=== PATIENT | female | born 1990 | race Caucasian/White ===

== ENCOUNTER → 2017-02-24 | Outpatient (CLI) | payer OTHER ==
[2017-02-24 13:15] LABS: CH 30.6; CHCM 35.3; HCT 39.4 % (34.0-46.0); HDW 2.62; HGB 14.4 gm/dL (11.4-16.0); MCH 31.9 pg (25.0-35.0); MCHC 36.6 g/dL (31.0-37.0); Mean Platelet Volume 7.5; RBC 4.53 m/uL (3.80-5.40); WBC 8.6 k/uL (3.8-10.6)
--- NOTE | 2017-02-24 15:27 | US ---
EXAMINATION TYPE: US OB <= 14 wk fetus DATE OF EXAM: 02/24/2017 COMPARISON: NONE CLINICAL HISTORY: [id number] Confirm Dates. Confirm Dates EXAM PERFORMED: Transabdominal (TA) EXAM MEASUREMENTS: GESTATIONAL AGE / DATING Physician Established: Not yet established Dates by LMP: (13 weeks/0 days) EDC: 09/01/2017 Dates by First Scan: No prior Dates by Current Scan for: (11 weeks/3 days) EDC: 09/12/2017 MATERNAL ANATOMY Uterus: 16.6 x 6.7 x 11.6 cm Right Ovary: 2.8 x 1.5 x 3.1 cm Left Ovary: 4.5 x 2.8 x 4.6 cm Post CDS / Adnexa: wnl Presence of free fluid: No Presence of corpus luteal cyst: Left Ovary= 3.3 x 2.3 x 3.3 cm Presence of subchorionic bleed: Lower Uterine Segment= 2.0 x 1.3 x 1.8 cm GESTATION / SURVEY CRL: 4.6 cm (11 weeks/3 days) MSD: wnl Heart Rate: 172 bpm Rhythm: Normal IUP: Viable IUP Nuchal Translucency 10-14wks (normal less than 3mm): 2 mm Date of LMP: 11/25/2016 Single, viable IUP/ Small sub-chorionic bleed, otherwise no other abnormality visualized at time Urinary bladder is sonolucent. IMPRESSION: 1. Single intrauterine gestation estimated at 11 weeks 3 days gestation based on crown-rump length. C ardiac activity measures 172 bpm. 2. Subchorionic hemorrhage.
[2017-02-24 19:13] LABS: Treponemal Ab Non-Reactive (Non-Reactive)
[2017-02-24 19:45] LABS: Glucose 86 mg/dL (74-99); Non-African American GFR(MDRD) >60 (>60 ml/min/1.73 sqM)
[2017-02-24 20:19] LABS: Hepatitis B Surface Ag Index 0.06
== END | disposition home or self-care (01) ==
LOC: RADUSWWP 12:17
PROVIDERS: ATTEND Obstetrics & Gynecology
DX: O46.91 Antepartum hemorrhage, unspecified, first trimester (principal); O26.811 Pregnancy related exhaustion and fatigue, first trimester; Z36 Encounter for antenatal screening of mother; Z3A.11 11 weeks gestation of pregnancy
CPT/HCPCS: 36415; 76801; 76813; 82565; 82947; 84443; 85027; 86762; 86780; 86850; 86900; 86901; 87340; 87390

== ENCOUNTER 2017-05-08 11:14 | Emergency (ER) | payer OTHER ==
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
[2017-05-08 12:49] VITALS: BP 109/68; PULSE 90; RESP 15; TEMP 97.8
== END 2017-05-08 13:09 | disposition home or self-care (01) ==
LOC: EC 11:14
DX: O9A.212 Injury, poisoning and certain other consequences of external causes complicating pregnancy, second trimester (principal); S00.83XA Contusion of other part of head, initial encounter; O99.342 Other mental disorders complicating pregnancy, second trimester; F32.9 Major depressive disorder, single episode, unspecified; F41.9 Anxiety disorder, unspecified; O99.332 Smoking (tobacco) complicating pregnancy, second trimester; F17.200 Nicotine dependence, unspecified, uncomplicated; Z79.899 Other long term (current) drug therapy; Z3A.22 22 weeks gestation of pregnancy; Y92.009 Unspecified place in unspecified non-institutional (private) residence as the place of occurrence of the external cause; Y04.0XXA Assault by unarmed brawl or fight, initial encounter
CPT/HCPCS: 99284

== ENCOUNTER → 2017-05-08 | Outpatient (CLI) | payer OTHER ==
[2017-05-08 11:30] VITALS: BP 118/64; PULSE 94; RESP 16; TEMP 97.3
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
== END | disposition home or self-care (01) ==
LOC: FBPOP 10:08
PROVIDERS: ATTEND Obstetrics & Gynecology
DX: O9A.22 Injury, poisoning and certain other consequences of external causes complicating childbirth (principal); S00.81XA Abrasion of other part of head, initial encounter; S00.31XA Abrasion of nose, initial encounter; S40.021A Contusion of right upper arm, initial encounter; S40.022A Contusion of left upper arm, initial encounter; S80.11XA Contusion of right lower leg, initial encounter; S80.12XA Contusion of left lower leg, initial encounter; Z3A.22 22 weeks gestation of pregnancy
CPT/HCPCS: 99213

== ENCOUNTER 2017-07-19 06:21 | Emergency (ER) | payer OTHER ==
[2017-07-19] MEDS ORDERED: SODIUM CHLORIDE 0.9% 500 ML IV STA (07:18)
[2017-07-19] MEDS ORDERED: DEXAMETHASONE SOD PHOSPHATE 10 MG/ML 1 ML VIAL IV STA (07:18)
[2017-07-19] MEDS ORDERED: IPRATROPIUM-ALBUTEROL 3 ML NEB INHALATION STA (07:18)
[2017-07-19] MEDS ORDERED: diphenhydrAMINE 50 MG/ML 1 ML VIAL IVP STA (07:19)
[2017-07-19] MEDS ORDERED: METOCLOPRAMIDE 5 MG/ML 2 ML VIAL IVP STA (07:19)
[2017-07-19] MEDS ORDERED: ACETAMINOPHEN TAB 500 MG TAB PO STA (07:21)
--- NOTE | 2017-07-19 07:25 | ED ---
General Adult HPI - General Chief complaint: Upper Respiratory Infection Stated complaint: migraine Time Seen by Provider: 07/19/17 07:02 Source: patient, RN notes reviewed Mode of arrival: ambulatory Limitations: no limitations - History of Present Illness Initial comments: 26-year-old female presents with a one-week history of cough, runny nose and nasal congestion and mild sore throat. Patient is currently 30 weeks . She has a past medical history of asthma. She states that over the past 3 days she has developed additional headache associated with her symptoms. Headache is right-sided. Typical of her usual migraine headaches. Patient states her cough is productive of sputum. Denies vomiting, has had some mild nausea associated with headache. Mild photophobia. Patient denies abdominal pain or vaginal bleeding. - Related Data Home Medications Medication Instructions Recorded Confirmed Acetaminophen Tab [Tylenol Tab] 1,000 mg PO BID PRN 05/08/17 07/19/17 Albuterol Inhaler [Ventolin Hfa 2 - 4 puff INHALATION RT-Q6H PRN 05/08/17 Inhaler] Previous Rx's Medication Instructions Recorded Cephalexin [Keflex] 500 mg PO Q8HR #21 cap 07/19/17 Allergies Allergy/AdvReac Type Severity Reaction Status Date / Time No Known Allergies Allergy Verified 07/19/17 07:18 Review of Systems ROS Statement: Those systems with pertinent positive or pertinent negative responses have been documented in the HPI. ROS Other: All systems not noted in ROS Statement are negative. Past Medical History Past Medical History: Asthma Additional Past Medical History / Comment(s): pancreatitis. pyloric stenosis, migraines History of Any Multi-Drug Resistant Organisms: MRSA Date of last positivie culture/infection: 2011 MDRO Source:: lt upper thigh area Past Surgical History: Cholecystectomy, Orthopedic Surgery Additional Past Surgical History / Comment(s): lt finger tendon repair Past Anesthesia/Blood Transfusion Reactions: No Reported Reaction Past Psychological History: Anxiety, Depression Smoking Status: Current every day smoker Past Alcohol Use History: None Reported Past Drug Use History: Marijuana - Past Family History Mother Family Medical History: No Reported History General Exam Limitations: no limitations General appearance: alert, in no apparent distress Head exam: Present: atraumatic, normocephalic Eye exam: Present: normal appearance, PERRL ENT exam: Present: mucous membranes dry, other (Nasal congestion, mild pharyngeal erythema) Neck exam: Present: normal inspection. Absent: tenderness, meningismus Respiratory exam: Present: wheezes. Absent: respiratory distress Cardiovascular Exam: Present: regular rate, normal rhythm GI/Abdominal exam: Present: soft. Absent: distended, tenderness Extremities exam: Present: normal inspection, normal capillary refill. Absent: pedal edema Neurological exam: Present: alert, oriented X3, CN II-XII intact. Absent: motor sensory deficit Psychiatric exam: Present: normal affect, normal mood Skin exam: Present: warm, dry, intact Course Vital Signs 07/19/17 07/19/17 07/19/17 06:30 07:38 07:57 Temperature 97.6 F Pulse Rate 94 92 Respiratory 20 Rate Blood Pressure 162/87 139/82 O2 Sat by Pulse 98 Oximetry 07/19/17 08:07 Temperature Pulse Rate 96 Respiratory Rate Blood Pressure O2 Sat by Pulse Oximetry Medical Decision Making - Medical Decision Making 26-year-old female presenting with cough, cold symptoms, and headache. Patient is currently 30 weeks . She does receive heart tones in the emergency department, these are in the 130s. She also has an STD performed while in the emergency department, this is reactive with no contractions. Laboratory studies reveal normal white blood cell count, 9.9, hemoglobin is stable 11.2, potassium is 3.4 which is low and replaced. AST and ALTs and platelets are all normal. Influenza swab is negative. Chest x-ray shows no focal pneumonia. Urinalysis does show 3 wbc's and rare bacteria, culture is obtained. Case is discussed with Dr. Conte, on-call [employer], NST results are conveyed the OB nurse. Patient's blood pressure is mildly elevated, she will have close follow-up with her [employer]. On reevaluation patient's headache is improved, no respiratory distress patient is feeling much better. - Lab Data Result diagrams: 07/19/17 07:46 07/19/17 07:46 Lab Results 07/19/17 07/19/17 07/19/17 Range/Units 07:46 07:46 07:46 WBC 9.9 (3.8-10.6) k/uL RBC 3.71 L (3.80-5.40) m/uL Hgb 11.2 L (11.4-16.0) gm/dL Hct 34.9 (34.0-46.0) % MCV 94.1 (80.0-100.0) fL MCH 30.1 (25.0-35.0) pg MCHC 32.0 (31.0-37.0) g/dL RDW 14.0 (11.5-15.5) % Plt Count 183 (150-450) k/uL Neutrophils % 77 % Lymphocytes % 15 % Monocytes % 5 % Eosinophils % 1 % Basophils % 0 % Neutrophils # 7.6 (1.3-7.7) k/uL Lymphocytes # 1.5 (1.0-4.8) k/uL Monocytes # 0.5 (0-1.0) k/uL Eosinophils # 0.1 (0-0.7) k/uL Basophils # 0.0 (0-0.2) k/uL Sodium 137 (137-145) mmol/L Potassium 3.4 L (3.5-5.1) mmol/L Chloride 110 H (98-107) mmol/L Carbon Dioxide 21 L (22-30) mmol/L Anion Gap 6 mmol/L BUN 6 L (7-17) mg/dL Creatinine 0.51 L (0.52-1.04) mg/dL Est GFR (MDRD) Af Amer >60 (>60 ml/min/1.73 sqM) Est GFR (MDRD) Non-Af >60 (>60 ml/min/1.73 sqM) Glucose 89 (74-99) mg/dL Calcium 8.7 (8.4-10.2) mg/dL Total Bilirubin 0.1 L (0.2-1.3) mg/dL AST 16 (14-36) U/L ALT 24 (9-52) U/L Alkaline Phosphatase 58 (38-126) U/L Total Protein 5.7 L (6.3-8.2) g/dL Albumin 3.0 L (3.5-5.0) g/dL Urine Color Urine Appearance (Clear) Urine pH (5.0-8.0) Ur Specific [place] (1.001-1.035) Urine Protein (Negative) Urine Glucose (UA) (Negative) Urine Ketones (Negative) Urine Blood (Negative) Urine Nitrite (Negative) Urine Bilirubin (Negative) Urine Urobilinogen (<2.0) mg/dL Ur Leukocyte Esterase (Negative) Urine RBC (0-5) /hpf Urine WBC (0-5) /hpf Ur Squamous Epith Cells (0-4) /hpf Urine Bacteria (None) /hpf Urine Mucus (None) /hpf Influenza Type A RNA Not Detected (Not Detectd) Influenza Type B (PCR) Not Detected (Not Detectd) 07/19/17 Range/Units 07:46 WBC (3.8-10.6) k/uL RBC (3.80-5.40) m/uL Hgb (11.4-16.0) gm/dL Hct (34.0-46.0) % MCV (80.0-100.0) fL MCH (25.0-35.0) pg MCHC (31.0-37.0) g/dL RDW (11.5-15.5) % Plt Count (150-450) k/uL Neutrophils % % Lymphocytes % % Monocytes % % Eosinophils % % Basophils % % Neutrophils # (1.3-7.7) k/uL Lymphocytes # (1.0-4.8) k/uL Monocytes # (0-1.0) k/uL Eosinophils # (0-0.7) k/uL Basophils # (0-0.2) k/uL Sodium (137-145) mmol/L Potassium (3.5-5.1) mmol/L Chloride (98-107) mmol/L Carbon Dioxide (22-30) mmol/L Anion Gap mmol/L BUN (7-17) mg/dL Creatinine (0.52-1.04) mg/dL Est GFR (MDRD) Af Amer (>60 ml/min/1.73 sqM) Est GFR (MDRD) Non-Af (>60 ml/min/1.73 sqM) Glucose (74-99) mg/dL Calcium (8.4-10.2) mg/dL Total Bilirubin (0.2-1.3) mg/dL AST (14-36) U/L ALT (9-52) U/L Alkaline Phosphatase (38-126) U/L Total Protein (6.3-8.2) g/dL Albumin (3.5-5.0) g/dL Urine Color Light Yellow Urine Appearance Cloudy H (Clear) Urine pH 6.5 (5.0-8.0) Ur Specific [place] 1.008 (1.001-1.035) Urine Protein Negative (Negative) Urine Glucose (UA) Negative (Negative) Urine Ketones Negative (Negative) Urine Blood Negative (Negative) Urine Nitrite Negative (Negative) Urine Bilirubin Negative (Negative) Urine Urobilinogen <2.0 (<2.0) mg/dL Ur Leukocyte Esterase Large H (Negative) Urine RBC 2 (0-5) /hpf Urine WBC 3 (0-5) /hpf Ur Squamous Epith Cells 7 H (0-4) /hpf Urine Bacteria Rare H (None) /hpf Urine Mucus Rare H (None) /hpf Influenza Type A RNA (Not Detectd) Influenza Type B (PCR) (Not Detectd) Disposition Clinical Impression: Upper respiratory infection, Asthma, UTI (urinary tract infection) during Disposition: HOME SELF-CARE Condition: Good Instructions: Upper Respiratory Infection (ED), Urinary Tract Infection in (ED) Prescriptions: Cephalexin [Keflex] 500 mg PO Q8HR #21 cap Referrals: Christo Herrera MD [Primary Care Provider] - 1-2 days Marcio Dumont DO [Doctor of Osteopathic Medicine] - 1-2 days Time of Disposition: 09:59
[2017-07-19 08:08] LABS: Basophils % (A) 0 %; CH 31.4; CHCM 33.6; Eosinophils # (A) 0.1 k/uL (0-0.7); Eosinophils % (A) 1 %; HCT 34.9 % (34.0-46.0); HDW 2.65; HGB 11.2 gm/dL (11.4-16.0); Luc # (Auto) 0.17; Luc % (Auto) 2; Lymphocytes # (A) 1.5 k/uL (1.0-4.8); Lymphocytes % (A) 15 %; MCH 30.1 pg (25.0-35.0); MCV 94.1 fL (80.0-100.0); Mean Platelet Volume 8.4; Monocytes # (A) 0.5 k/uL (0-1.0); Monocytes % (A) 5 %; Neutrophils # (A) 7.6 k/uL (1.3-7.7); Neutrophils % (A) 77 %; RBC 3.71 m/uL (3.80-5.40); WBC 9.9 k/uL (3.8-10.6)
[2017-07-19 08:11] LABS: Appearance,Urine Cloudy (Clear); Bacteria,Urine Rare /hpf; Bilirubin,Urine Negative (Negative); Glucose,Urine (UA) Negative (Negative); Ketones,Urine Negative (Negative); Leukocyte Esterase,Urine Large (Negative); Mucus,Urine Rare /hpf; Nitrite,Urine Negative (Negative); PH, Urine 6.5 (5.0-8.0); Particle Count 3730; Protein,Urine Negative (Negative); RBC,Urine 2 /hpf (0-5); Specific Gravity,Urine 1.008 (1.001-1.035); Squamous Epithelial Cell,Urine 7 /hpf (0-4); UA Billing (MACRO vs. MICRO) MICRO; Urobilinogen,Urine <2.0 mg/dL (<2.0); WBC,Urine 3 /hpf (0-5)
[2017-07-19 08:30] LABS: ALT 24 U/L (9-52); AST 16 U/L (14-36); Alkaline Phosphatase 58 U/L (38-126); Anion Gap 6 mmol/L; Blood Urea Nitrogen 6 mg/dL (7-17); Calcium 8.7 mg/dL (8.4-10.2); Carbon Dioxide 21 mmol/L (22-30); Chloride 110 mmol/L (98-107); Glucose 89 mg/dL (74-99); Non-African American GFR(MDRD) >60 (>60 ml/min/1.73 sqM); Potassium 3.4 mmol/L (3.5-5.1); Sodium 137 mmol/L (137-145); Total Bilirubin 0.1 mg/dL (0.2-1.3); Total Protein 5.7 g/dL (6.3-8.2)
[2017-07-19] MEDS ORDERED: POTASSIUM CHLORIDE ER 20 MEQ TAB.ER PO STA (08:46)
--- NOTE | 2017-07-19 09:26 | XR ---
EXAMINATION TYPE: XR chest 2V DATE OF EXAM: 07/19/2017 COMPARISON: None HISTORY: 26-year-old female with cough TECHNIQUE: PA and lateral views FINDINGS: The cardiomediastinal silhouette, aorta, and pulmonary vasculature are within normal limits. Lungs an d pleural spaces are clear. IMPRESSION: No acute cardiopulmonary process.
[2017-07-19 10:32] VITALS: BP 115/73; PULSE 88; RESP 18; TEMP 98.5
== END 2017-07-19 10:32 | disposition home or self-care (01) ==
LOC: EC 06:21
DX: O99.513 Diseases of the respiratory system complicating pregnancy, third trimester (principal); J06.9 Acute upper respiratory infection, unspecified; J45.909 Unspecified asthma, uncomplicated; O23.43 Unspecified infection of urinary tract in pregnancy, third trimester; O99.333 Smoking (tobacco) complicating pregnancy, third trimester; F17.200 Nicotine dependence, unspecified, uncomplicated; Z3A.30 30 weeks gestation of pregnancy; Z86.14 Personal history of Methicillin resistant Staphylococcus aureus infection
CPT/HCPCS: 36415; 94640; 80053; 85025; 81001; 87086; 87502; 71020; 99284; 96374; 96375 ×2; 96361; J1200; J1100; J2765

== ENCOUNTER 2017-08-13 08:26 | Emergency (ER) | payer OTHER ==
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
[2017-08-13 09:04] LABS: Basophils % (A) 0 %; Eosinophils # (A) 0.1 k/uL (0-0.7); Eosinophils % (A) 1 %; HCT 33.8 % (34.0-46.0); HGB 11.4 gm/dL (11.4-16.0); Lymphocytes # (A) 1.2 k/uL (1.0-4.8); Lymphocytes % (A) 15 %; MCH 30.6 pg (25.0-35.0); MCHC 33.8 g/dL (31.0-37.0); MCV 90.6 fL (80.0-100.0); Mean Platelet Volume 7.5; Monocytes # (A) 0.4 k/uL (0-1.0); Monocytes % (A) 5 %; Neutrophils # (A) 6.2 k/uL (1.3-7.7); Neutrophils % (A) 76 %; Platelet Count 193 k/uL (150-450); RBC 3.73 m/uL (3.80-5.40); RDW 13.2 % (11.5-15.5); WBC 8.1 k/uL (3.8-10.6)
--- NOTE | 2017-08-13 09:11 | XR ---
EXAMINATION TYPE: XR chest 1V portable DATE OF EXAM: 08/13/2017 COMPARISON: 07/19/2017 HISTORY: Chest pain TECHNIQUE: Single frontal view of the chest is obtained. Lung volumes are diminished. FINDINGS: There is no focal air space opacity, pleural effusion, or pneumothorax seen. The cardiac silhouette size is within normal limits. The osseous structures are intact. IMPRESSION: 1. No acute process.
--- NOTE | 2017-08-13 09:12 | XR ---
EXAMINATION TYPE: XR pelvis AP view DATE OF EXAM: 08/13/2017 CLINICAL HISTORY: pain TECHNIQUE: Single view the pelvis is submitted. FINDINGS: No evidence for fracture, dislocation or bony lesion. Joint spaces are well-preserved. S I joints appear symmetric. Portions of the calvarium and thorax noted. IMPRESSION: 1. No acute fracture or dislocation seen. ICD 10 NO FRACTURE, INITIAL EVALUATION
[2017-08-13 09:15] LABS: ALT 29 U/L (9-52); AST 18 U/L (14-36); Albumin 3.1 g/dL (3.5-5.0); Alcohol <10 mg/dL; Alkaline Phosphatase 72 U/L (38-126); Amylase 49 U/L (30-110); Anion Gap 6 mmol/L; Blood Urea Nitrogen 7 mg/dL (7-17); Calcium 8.8 mg/dL (8.4-10.2); Carbon Dioxide 24 mmol/L (22-30); Chloride 107 mmol/L (98-107); Glucose 102 mg/dL (74-99); Lipase 93 U/L (23-300); Potassium 3.2 mmol/L (3.5-5.1); Sodium 137 mmol/L (137-145); Total Bilirubin 0.3 mg/dL (0.2-1.3); Total Protein 5.8 g/dL (6.3-8.2)
[2017-08-13 09:16] LABS: INR 0.9 (<1.2); Prothrombin Time 9.4 sec (9.0-12.0)
[2017-08-13 09:27] LABS: Partial Thromboplastin Time 19.9 sec (22.0-30.0)
[2017-08-13 09:30] LABS: Creatine Kinase 38 U/L (30-135)
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
[2017-08-13 09:42] LABS: Creatine Kinase MB 0.5 ng/mL (0.0-2.4); Troponin I <0.012 ng/mL (0.000-0.034)
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
[2017-08-13 10:49] LABS: Appearance,Urine Cloudy (Clear); Bacteria,Urine Rare /hpf; Bilirubin,Urine Negative (Negative); Blood,Urine Negative (Negative); Color,Urine Yellow; Glucose,Urine (UA) Negative (Negative); Ketones,Urine Negative (Negative); Leukocyte Esterase,Urine Large (Negative); Nitrite,Urine Negative (Negative); Protein,Urine Trace (Negative); RBC,Urine 5 /hpf (0-5); Specific Gravity,Urine 1.009 (1.001-1.035); Squamous Epithelial Cell,Urine 29 /hpf (0-4); Urobilinogen,Urine <2.0 mg/dL (<2.0); WBC,Urine 11 /hpf (0-5)
[2017-08-13 10:56] LABS: Urn Cannabinoid Scrn Detected (NotDetected)
[2017-08-13 10:57] LABS: Amphetamine Screen,Urine Not Detected (NotDetected); Barbiturate Screen,Urine Not Detected (NotDetected); Benzodiazepines Screen,Urine Not Detected (NotDetected); Cocaine Screen,Urine Not Detected (NotDetected); Methadone Screen, Urine Not Detected (NotDetected); Opiate Screen,Urine Not Detected (NotDetected); Oxycodone Screen, Urine Not Detected (NotDetected); Phencyclidine Screen,Urine Not Detected (NotDetected); Tricyclic Antidepressant,Urine Not Detected (NotDetected)
[2017-08-13] MEDS ORDERED: Acetaminophen-Codeine 300-30mg TAB PO PRN (12:16)
[2017-08-25 10:36] LABS: Glucose,Whole Blood 113 mg/dL (75-99)
== END 2017-08-13 23:55 | disposition home or self-care (01) ==
LOC: EC 08:26
DX: O9A.213 Injury, poisoning and certain other consequences of external causes complicating pregnancy, third trimester (principal); S70.02XA Contusion of left hip, initial encounter; O99.89 Other specified diseases and conditions complicating pregnancy, childbirth and the puerperium; M54.2 Cervicalgia; O99.333 Smoking (tobacco) complicating pregnancy, third trimester; F17.200 Nicotine dependence, unspecified, uncomplicated; Z79.899 Other long term (current) drug therapy; V49.59XA Passenger injured in collision with other motor vehicles in traffic accident, initial encounter; Y92.410 Unspecified street and highway as the place of occurrence of the external cause; Z3A.37 37 weeks gestation of pregnancy
CPT/HCPCS: 36415; 71010; 72125; 72170; 76700; 76805; 80053; 80306; 80320; 81001; 81025; 82150; 82550; 82553; 83605; 83690; 84484; 85025; 85610; 85730; 86850; 86900; 86901; 93005; 99285

== ENCOUNTER 2017-09-01 20:41 | Outpatient (CLI) | payer OTHER ==
[2017-09-01 21:47] VITALS: BP 129/82; PULSE 112; RESP 16; TEMP 97.1
--- NOTE | 2017-09-13 21:41 | P.MSEPDOC ---
Presenting Problems - Arrival Data Date of Arrival on Unit: 09/01/17 Time of Arrival on Unit: 20:41 Mode of Transport: Ambulatory - Complaint OB-Reason for Admission/Chief Complaint: Possible Onset of Labor, Vaginal Bleeding Comment: pt noted small clots while in the tub, thought she was leaking immediately after the bath, and still having small amt of bleeding. amnisure neg. pt denies thinking her water is broke. old brown blood noted on exam, cervix unchanged from office, bp WNL but HR elevated on admission, in 115s now Medical History - Information : 5 Para: 4 Term: 4 : 0 Abortions: Spontaneous or Elective: 0 Number of Living Children: 4 - Gestational Age Gestational Age by KAREN (wks/days): 38 Weeks and 3 Days - History Complications: Smoker, Hx. Substance Abuse Comment: occasional marijuana use depending on her stress level and how well she 's sleeping Review of Systems - Review of Systems Constitutional: No problems Breast: No problems ENT: No problems Cardiovascular: No problems Respiratory: No problems Gastrointestinal: No problems Genitourinary: No problems Musculoskeletal: No problems Neurological: No problems Skin: No problems Vital Signs - Temperature Temperature: 97.1 F Temperature Source: Temporal Artery Scan - Pulse Right Pulse Rate: 112 Pulse Assessment Method: Pulse Oximetry - Respirations Respiratory Rate: 16 O2 Sat by Pulse Oximetry: 95 - Blood Pressure Right Arm Blood Pressure: 129/82 Blood Pressure Mean: 97 Blood Pressure Source: Automatic Cuff Medical Screen Scoring (Pre) - Cervical Exam Dilation: 1-3 cm = 1 Membranes: Intact - Uterine Contractions Frequency: > 5 minutes apart = 1 Intensity: N/A - Maternal Vital Signs Maternal Temperature: N/A Maternal Blood Pressure: N/A Signs of Preeclampsia: N/A Maternal Respirations: N/A - Assessment Baseline FHR: 135 Heart Rate - NICHD Category: Category I (Normal) = 0 NST: Reactive Position: N/A - Total Score Total Score (Pre): 2 - Level of Risk Level of Risk: Low (0-5) Physician Notification (Pre) - Physician Notified Physician Notified Date: 09/01/17 Physician Notified Time: 21:17 Physician/Practitioner Notifed:: Dr Barney - Notification Comment Comment: pt states shes preeclamptic, reported on vitals. HR has decreased since being here. pt is smoker. reported on reactive fhts, 1 cntrx, vag exam unchanged since office, has appt scheduled wednesday. no active bleeding noted, no leaking noted. orders to d/c home with instructions Disposition - Disposition OB Disposition: Discharge to home Discharge Date: 09/01/17 Discharge Time: 21:25 I agree with the RN Medical Screening Exam: Yes Risk & Benefit of care provided described in d/c instruction: Yes Diagnosis: FALSE LABOR AT OR AFTER 37 COMPLETED WEEKS OF GESTATION
== END 2017-09-01 21:25 | disposition home or self-care (01) ==
LOC: FBPOP 20:41
PROVIDERS: ATTEND Obstetrics & Gynecology
DX: O47.1 False labor at or after 37 completed weeks of gestation (principal); Z3A.38 38 weeks gestation of pregnancy
CPT/HCPCS: 59025; 84112; G0463; 99213

== ENCOUNTER 2017-09-03 15:09 | Inpatient (IN) | payer OTHER ==
[2017-09-03] MEDS ORDERED: CARBOPROST TROMETHAMINE 250 MCG/ML 1 ML AMP IM PRN (15:22)
[2017-09-03] MEDS ORDERED: TERBUTALINE 1 MG/ML VIAL SQ PRN (15:22)
[2017-09-03] MEDS ORDERED: OXYTOCIN 10 UNIT/ML 1 ML VIAL IM PRN (15:22)
[2017-09-03] MEDS ORDERED: LIDOCAINE 1% (PF) 10 MG/ML (30 ML SDV) SQ PRN (15:22)
[2017-09-03] MEDS ORDERED: METHYLERGONOVINE 0.2 MG/ML 1 ML AMP IM PRN (15:22)
[2017-09-03 15:32] VITALS: BMI 29.1
[2017-09-03] MEDS: OXYTOCIN 20 UNITS/1000 ML NS 1,000 ML IV SCH (15:50)
[2017-09-03] MEDS: LACTATED RINGERS 1,000 ML IV SCH ×3 (15:50→21:25)
[2017-09-03 15:54] LABS: ALT 31 U/L (9-52); AST 16 U/L (14-36); Blood Urea Nitrogen 4 mg/dL (7-17); LDH 417 U/L (313-618); Uric Acid 3.4 mg/dL (3.7-7.4)
[2017-09-03 15:55] LABS: Amorphous Sediment,Urine Occasional /hpf; Appearance,Urine Clear (Clear); Bacteria,Urine Occasional /hpf; Bilirubin,Urine Negative (Negative); Blood,Urine Moderate (Negative); Color,Urine Light Yellow; Glucose,Urine (UA) Negative (Negative); Ketones,Urine Negative (Negative); Leukocyte Esterase,Urine Small (Negative); Nitrite,Urine Negative (Negative); PH, Urine 7.5 (5.0-8.0); Protein,Urine Negative (Negative); RBC,Urine 4 /hpf (0-5); Specific Gravity,Urine 1.002 (1.001-1.035); Squamous Epithelial Cell,Urine 4 /hpf (0-4); Urobilinogen,Urine <2.0 mg/dL (<2.0); WBC,Urine 4 /hpf (0-5)
[2017-09-03 15:57] LABS: INR 0.9 (<1.2); Partial Thromboplastin Time 24.4 sec (22.0-30.0); Prothrombin Time 9.4 sec (9.0-12.0)
[2017-09-03 16:03] LABS: Basophils % (A) 0 %; Eosinophils % (A) 0 %; HGB 12.1 gm/dL (11.4-16.0); Lymphocytes # (A) 1.2 k/uL (1.0-4.8); Lymphocytes % (A) 14 %; MCH 30.6 pg (25.0-35.0); MCHC 33.7 g/dL (31.0-37.0); MCV 90.9 fL (80.0-100.0); Mean Platelet Volume 7.9; Monocytes # (A) 0.3 k/uL (0-1.0); Monocytes % (A) 4 %; Neutrophils # (A) 6.8 k/uL (1.3-7.7); Neutrophils % (A) 79 %; Platelet Count 198 k/uL (150-450); RBC 3.96 m/uL (3.80-5.40); RDW 13.3 % (11.5-15.5); WBC 8.7 k/uL (3.8-10.6)
[2017-09-03] MEDS: ALBUTEROL NEBULIZED 2.5 MG/3 ML INHALATION PRN (16:54)
[2017-09-03] MEDS ORDERED: BUPIVACAINE (PF) 0.25% 30 ML VIAL ONE (20:49)
[2017-09-03] MEDS ORDERED: SODIUM CHLORIDE 0.9% 100 ML BAG ONE (20:49)
[2017-09-03] MEDS ORDERED: fentaNYL (PF) 50 MCG/ML 5 ML AMP ONE (20:49)
[2017-09-03] MEDS ORDERED: BUPIVACAINE (PF) 0.25% 25 ML, fentaNYL (PF) 200 MCG in SODIUM CHLORIDE 0.9% 71 ML EPIDURAL ONE (21:22)
[2017-09-04] MEDS ORDERED: HYDROCORTISONE 2.5% RECTAL CREAM 30 GM TUBE RECTAL PRN (00:20)
[2017-09-04] MEDS ORDERED: diphenhydrAMINE 25 MG CAP PO PRN (00:20)
[2017-09-04] MEDS ORDERED: WITCH HAZEL 1 EACH MED..PAD TOPICAL PRN (00:20)
[2017-09-04] MEDS ORDERED: LANOLIN CREAM 5 GM TUBE TOPICAL PRN (00:20)
[2017-09-04] MEDS ORDERED: ZOLPIDEM 5 MG TAB PO PRN (00:20)
[2017-09-04] MEDS ORDERED: SIMETHICONE 80 MG CHEWABLE PO PRN (00:20)
[2017-09-04] MEDS ORDERED: diphenhydrAMINE 50 MG CAP PO PRN (00:20)
[2017-09-04] MEDS ORDERED: diphenhydrAMINE 50 MG/ML 1 ML VIAL IVP PRN ×2 (00:20)
[2017-09-04] MEDS ORDERED: ACETAMINOPHEN TAB 325 MG TAB PO PRN (00:20)
[2017-09-04] MEDS ORDERED: BENZOCAINE/MENTHOL SPRAY 1 GM/SPRAY AEROSOL TOPICAL PRN (00:20)
--- NOTE | 2017-09-04 00:28 | P.HPOB ---
History of Present Illness H&P Date: 09/04/17 Chief Complaint: IUP At term: Gestational hypertension 6-year-old at 38 weeks gestation who arrives from my office with elevated blood pressures. Her blood pressures had been did on 2 previous occasions at 16 weeks and at 34 weeks preeclamptic labs had all been normal. Her pertinent labs do include O+ blood type, Rh antibody was negative, rubella, hepatitis B surface antigen, and HIV were all negative. Risks and benefits of delivery at 38 weeks were discussed with the patient but again with elevated blood pressures persisting and with some slight increase in swelling . In the office today she had 2 separate blood pressures of 130/90 and 130/98. She was sent over with mildly elevated blood pressures here and was diagnosed with gestational hypertension and due to the fact that she is past 37 weeks and induction has been initiated. We'll plan Pitocin augmentation of labor and artificial rupture membranes was performed and clear fluid is noted. Her course is significant for a very large gap in care from [address] to 34 weeks. Heart regular, lungs clear, extremities are without pain. Osteopathic exam is unremarkable. She was dilated to 3 cm 80% effaced -2 station. heart tones were in the 140s to 150s and reactive. Assessment intrauterine at 38 weeks with gestational hypertension. Plan expect spontaneous vaginal delivery Past Medical History Past Medical History: Asthma Additional Past Medical History / Comment(s): pancreatitis. pyloric stenosis, migraines History of Any Multi-Drug Resistant Organisms: None Reported Date of last positivie culture/infection: 2011 MDRO Source:: lt upper thigh area Past Surgical History: Cholecystectomy, Orthopedic Surgery Additional Past Surgical History / Comment(s): lt finger tendon repair Past Anesthesia/Blood Transfusion Reactions: No Reported Reaction Past Psychological History: Anxiety, Depression Smoking Status: Current every day smoker Past Alcohol Use History: None Reported Additional Past Alcohol Use History / Comment(s): quit smoking 09/2014 Past Drug Use History: Marijuana Additional Drug Use History / Comment(s): about 4 times weekly. used 3 days ago. - Past Family History Mother Family Medical History: No Reported History Medications and Allergies Home Medications Medication Instructions Recorded Confirmed Type Albuterol Inhaler [Ventolin Hfa 2 - 4 puff INHALATION RT-Q6H PRN 05/08/17 History Inhaler] Allergies Allergy/AdvReac Type Severity Reaction Status Date / Time No Known Allergies Allergy Verified 09/01/17 21:32 Exam Osteopathic Statement: *. No significant issues noted on an osteopathic structural exam other than those noted in the History and Physical/Consult. - Vital Signs Vital signs: Vital Signs Temp Pulse Pulse Resp BP Pulse Ox 09/03/17 17:04 95 09/03/17 16:56 95 09/03/17 15:24 97.3 F L 113 H 17 127/88 97 Intake and Output 09/03/17 09/03/17 09/04/17 14:59 22:59 06:59 Other: # Voids 1 Weight 79.379 kg Patient Weight 09/04/17 06:59 Weight 79.379 kg Results Result Diagrams: 09/03/17 15:30 09/03/17 15:30 Abnormal Lab Results - Last 24 Hours (Table) 09/03/17 09/03/17 Range/Units 15:30 15:38 BUN 4 L (7-17) mg/dL Uric Acid 3.4 L (3.7-7.4) mg/dL Urine Blood Moderate H (Negative) Ur Leukocyte Esterase Small H (Negative) Amorphous Sediment Occasional H (None) /hpf Urine Bacteria Occasional H (None) /hpf
--- NOTE | 2017-09-04 00:30 | P.PROBDLV ---
Vaginal Delivery Note - . Vaginal Delivery Note: patient progressed to complete and pushing with spontaneous vaginal delivery of a viable male over an intact perineum. Following delivery of the head anterior posterior shoulders were delivered with gentle downward upper traction followed by the remainder the baby. It should be noted that there was a nuchal cord 1 that was easily reduced. Once baby was fully delivered mouth nares were bulb suctioned and baby was placed on mother's abdomen where the umbilical cord was clamped pulsating for 20-30 seconds prior to prepping and cutting. On cystoscopic accomplished nursery personnel was present to assume care. Placenta was then delivered intact and Pitocin was added to the IV. scores and weight are both pending both mother and baby however appear stable.
[2017-09-04] MEDS: IBUPROFEN 600 MG TAB PO PRN ×3 (03:18→19:53)
[2017-09-04] MEDS: SENNOSIDES-DOCUSATE SODIUM 1 EACH TAB PO SCH ×3 (08:58→19:53)
[2017-09-04] MEDS: ALBUTEROL NEBULIZED 2.5 MG/3 ML INHALATION PRN (15:21)
[2017-09-04] MEDS: LACTATED RINGERS 1,000 ML IV SCH (16:19)
[2017-09-04] MEDS: OXYTOCIN 20 UNITS/1000 ML NS 1,000 ML IV SCH (20:13)
[2017-09-05] MEDS: IBUPROFEN 600 MG TAB PO PRN (03:38)
[2017-09-05 09:19] VITALS: BP 104/63; PULSE 70; RESP 16; TEMP 98.1
[2017-09-05] MEDS: SENNOSIDES-DOCUSATE SODIUM 1 EACH TAB PO SCH (09:19)
--- NOTE | 2017-09-05 10:34 | P.DS ---
Providers Date of admission: 09/03/17 15:09 Expected date of discharge: 09/05/17 Attending physician: Marcio Dumont Primary care physician: Marcio Dumont Hospital Course: Patient is doing very well day 1. She is ambulating, voiding, and she is tolerating her diet. She voices no complaints. Vital signs are stable and afebrile. Heart regular, lungs clear, extremities without pain. Assessment day 1. Plan discharged home follow up with me in 6 weeks. All questions are answered for her prior to her discharge and she requests nothing for pain to be discharged home with. She plans follow-up in the office to sign tubal papers were in the next 1-2 weeks we can schedule her permanent sterilization in approximately 1-2 months Patient Condition at Discharge: Good Plan - Discharge Summary New Discharge Prescriptions: No Action Albuterol Inhaler [Ventolin Hfa Inhaler] 2 - 4 puff INHALATION RT-Q6H PRN PRN Reason: Shortness Of Breath Discharge Medication List Albuterol Inhaler [Ventolin Hfa Inhaler] 2 - 4 puff INHALATION RT-Q6H PRN [History] Follow up Appointment(s)/Referral(s): Marcio Dumont DO [Primary Care Provider] - 1 Week Activity/Diet/Wound Care/Special Instructions: No heavy Lifting, limit stairs and driving and pelvic rest. If any high temperatures, heavy bleeding, or severe pain call my office
== END 2017-09-05 14:19 | disposition home or self-care (01) | DRG 775 ==
LOC: 4FBP 15:09
PROVIDERS: ADMIT Obstetrics & Gynecology; ATTEND Obstetrics & Gynecology
PROC: 00HU33Z Insertion of Infusion Device into Spinal Canal, Percutaneous Approach (ICD-10-PCS; 2017-09-03)
PROC: 3E0R3BZ Introduction of Anesthetic Agent into Spinal Canal, Percutaneous Approach (ICD-10-PCS; 2017-09-03)
PROC: 3E033VJ Introduction of Other Hormone into Peripheral Vein, Percutaneous Approach (ICD-10-PCS; 2017-09-03)
PROC: 10907ZC Drainage of Amniotic Fluid, Therapeutic from Products of Conception, Via Natural or Artificial Opening (ICD-10-PCS; 2017-09-03)
PROC: 10E0XZZ Delivery of Products of Conception, External Approach (ICD-10-PCS; principal; 2017-09-04)
DX: O13.4 Gestational [pregnancy-induced] hypertension without significant proteinuria, complicating childbirth (principal); F17.200 Nicotine dependence, unspecified, uncomplicated; Z37.0 Single live birth; O69.81X0 Labor and delivery complicated by cord around neck, without compression, not applicable or unspecified; Z3A.38 38 weeks gestation of pregnancy; O99.334 Smoking (tobacco) complicating childbirth; O99.52 Diseases of the respiratory system complicating childbirth; J45.909 Unspecified asthma, uncomplicated; Z90.49 Acquired absence of other specified parts of digestive tract; G43.909 Migraine, unspecified, not intractable, without status migrainosus; Z79.899 Other long term (current) drug therapy; Z86.59 Personal history of other mental and behavioral disorders
CPT/HCPCS: 81001; 82565; 83615; 84450; 84460; 84520; 84550; 85025; 85610; 85730; 88307; 94640

== ENCOUNTER → 2017-12-01 | Outpatient (CLI) | payer OTHER ==
[2017-12-01 13:20] LABS: Basophils % (A) 0 %; Eosinophils # (A) 0.1 k/uL (0-0.7); Eosinophils % (A) 2 %; HCT 42.2 % (34.0-46.0); HGB 14.3 gm/dL (11.4-16.0); Lymphocytes # (A) 1.5 k/uL (1.0-4.8); Lymphocytes % (A) 27 %; MCH 30.1 pg (25.0-35.0); MCHC 33.9 g/dL (31.0-37.0); MCV 88.7 fL (80.0-100.0); Mean Platelet Volume 8.1; Monocytes # (A) 0.3 k/uL (0-1.0); Monocytes % (A) 6 %; Neutrophils # (A) 3.4 k/uL (1.3-7.7); Neutrophils % (A) 61 %; Platelet Count 206 k/uL (150-450); RBC 4.75 m/uL (3.80-5.40); WBC 5.5 k/uL (3.8-10.6)
== END | disposition home or self-care (01) ==
LOC: LABPAT 12:50
PROVIDERS: ATTEND Obstetrics & Gynecology
DX: Z01.812 Encounter for preprocedural laboratory examination (principal)
CPT/HCPCS: 36415; 85025

== ENCOUNTER 2017-12-03 06:24 | Day surgery (SDC) | payer OTHER ==
[2017-11-26 15:27] VITALS: BMI 25.7
--- NOTE | 2017-12-01 18:10 | P.HPOB ---
History of Present Illness H&P Date: 12/01/17 Chief Complaint: Family planning Patient is a 27-year-old female who is completed her family planning desires permanent sterilization. Risks/benefits/alternatives to a laparoscopic tubal occlusion with Filshie clips has been discussed with the patient in detail and all questions were answered for her prior to proceeding to the operating room. On physical exam vital signs are stable and afebrile. Heart regular, lungs clear, extremities without pain. Osteopathic exams unremarkable. Abdomen soft nontender positive bowel sounds are noted. Pelvic exams unremarkable. Assessment family planning. Plan laparoscopic tubal occlusion with Filshie clips. Past Medical History Past Medical History: Asthma Additional Past Medical History / Comment(s): pancreatitis. pyloric stenosis, migraines History of Any Multi-Drug Resistant Organisms: None Reported Date of last positivie culture/infection: 2011 MDRO Source:: lt upper thigh area Past Surgical History: Cholecystectomy, Orthopedic Surgery Additional Past Surgical History / Comment(s): lt finger tendon repair Past Anesthesia/Blood Transfusion Reactions: No Reported Reaction Smoking Status: Current every day smoker - Past Family History Mother Family Medical History: No Reported History Medications and Allergies Home Medications Medication Instructions Recorded Confirmed Type Albuterol Inhaler [Ventolin Hfa 2 - 4 puff INHALATION RT-Q6H PRN 05/08/17 History Inhaler] Allergies Allergy/AdvReac Type Severity Reaction Status Date / Time No Known Allergies Allergy Verified 11/26/17 15:10 Exam Osteopathic Statement: *. No significant issues noted on an osteopathic structural exam other than those noted in the History and Physical/Consult.
[~2017-12-03 06:24] MED LIST: DEXAMETHASONE SOD PHOSPHATE 10 MG/ML 1 ML VIAL IV ONE; LACTATED RINGERS 1,000 ML IV SCH; MIDAZOLAM 2 MG/2 ML VIAL IV PRN; ONDANSETRON 4 MG/2 ML VIAL IVP ONE; Pre Op ABX Message 1 EACH MISC MISCELLANE ONE; SCOPOLAMINE 1.5MG/72HR PATCH TRANSDERM ONE; fentaNYL (PF) 50 MCG/ML 2 ML AMP IV PRN
[2017-12-03] MEDS ORDERED: LIDOCAINE 1% 20 ML VIAL (10MG/ML) FOR IV START INTRADERMA ONE (06:52)
[2017-12-03] MEDS ORDERED: GLYCOPYRROLATE 0.2 MG/ML 2 ML VIAL ONE (07:42)
[2017-12-03] MEDS ORDERED: LIDOCAINE 1% INJ 10MG/ML (20 ML MDV) ONE (07:42)
[2017-12-03] MEDS ORDERED: KETOROLAC 30 MG/ML 1 ML VIAL ONE (07:42)
[2017-12-03] MEDS ORDERED: fentaNYL (PF) 50 MCG/ML 2 ML AMP ONE (07:42)
[2017-12-03] MEDS ORDERED: SUCCINYLCHOLINE CHLORIDE 100 MG/5 ML SYR IV ONE (07:42)
[2017-12-03] MEDS ORDERED: MIDAZOLAM 2 MG/2 ML VIAL ONE (07:42)
[2017-12-03] MEDS ORDERED: PROPOFOL 10 MG/ML 100 ML VIAL IV ONE (07:42)
[2017-12-03] MEDS ORDERED: NEOSTIGMINE 1 MG/ML 10 ML VIAL ONE (07:42)
[2017-12-03] MEDS ORDERED: ROCURONIUM BROMIDE 10 MG/ML 10 ML VIAL IV ONE (07:42)
[2017-12-03] MEDS ORDERED: BUPIVACAINE (PF) 0.25% 30 ML VIAL SQ ONE (07:57)
--- NOTE | 2017-12-03 08:14 | P.OP ---
Date of Procedure: 12/03/17 Preoperative Diagnosis: Family planning Postoperative Diagnosis: Same Procedure(s) Performed: Laparoscopic tubal occlusion with Filshie clips Anesthesia: SVETLANA Surgeon: Marcio Dumont Estimated Blood Loss (ml): 2 Urine output (ml): 30 Pathology: none sent Condition: stable Disposition: same day Operative Findings: Normal uterus tubes and ovaries. Uterus was somewhat enlarged and globular Description of Procedure: Patient was taken to the operating suite where a general anesthetic was found be adequate. She was prepped and draped in the normal sterile fashion and placed in dorsal lithotomy position. Initially speculum was inserted into the vagina and into lip cervix was grasped with an Allis clamp and sounded to 10 cm. Uterine manipulator was then inserted without difficulty and red rubber cath was used to drain the bladder urine. Closure then changed speculum and Allis clamp were removed and attention was turned to the abdominal portion of the procedure. Initially 2 mL of quarter percent Marcaine was injected periumbilically. Through this injected anesthetic a 5 mm skin incision was made and through this incision under direct visualization with an optical trocar and sleeve the camera was inserted. Once peritoneal placement was assured gas left fully insufflate the abdomen and patient was then placed in steep Trendelenburg position. A second 8 mm skin incision was then made 3 cm above the pubic symphysis in the midline and through this an 8 ohmmeter trocar and sleeve were inserted again under direct visualization. Once this was accomplished uterus tubes and ovaries were identified and first the right fallopian tube than the right and left fallopian tube were grasped with a Filshie clip approximately 2-3 cm from uterine cornu. There is no bleeding from the mesosalpinx once these were placed therefore instruments are removed and gas was allowed to expel from the abdomen. 5 deep breaths were provided during this process once this was accomplished 4-0 Vicryl was used to close the incisions subcuticularly. Instruments were then removed from the vagina. Sponge, lap, needle counts were correct 2. Patient was then taken to the recovery room in stable and satisfactory condition. Plan - Discharge Summary New Discharge Prescriptions: New Ibuprofen [Motrin] 600 mg PO Q6HR PRN #30 tab PRN Reason: Pain No Action Albuterol Inhaler [Ventolin Hfa Inhaler] 2 - 4 puff INHALATION RT-Q6H PRN PRN Reason: Shortness Of Breath Discharge Medication List Albuterol Inhaler [Ventolin Hfa Inhaler] 2 - 4 puff INHALATION RT-Q6H PRN [History] Ibuprofen [Motrin] 600 mg PO Q6HR PRN #30 tab 12/03/17 [Rx] Follow up Appointment(s)/Referral(s): Marcio Dumont DO [Doctor of Osteopathic Medicine] - 2 Weeks Activity/Diet/Wound Care/Special Instructions: No heavy lifting, limit stairs and driving and pelvic rest. If any high temperatures, heavy bleeding, or severe pain call my office
[2017-12-03] MEDS ORDERED: ONDANSETRON 4 MG/2 ML VIAL IVP ONE (08:25)
[2017-12-03] MEDS ORDERED: diphenhydrAMINE 50 MG/ML 1 ML VIAL IVP ONE (08:30)
[2017-12-03 08:41] VITALS: TEMP 97.5
[2017-12-03] MEDS ORDERED: MEPERIDINE 50 MG/ML SYRINGE IVP ONE ×2 (08:46→09:11)
[2017-12-03 08:50] VITALS: RESP 16
[2017-12-03] MEDS ORDERED: LACTATED RINGERS 1,000 ML IV ONE ×2 (08:51)
[2017-12-03] MEDS ORDERED: IBUPROFEN 200 MG TAB PO ONE (10:08)
[2017-12-03 11:07] VITALS: BP 88/56; PULSE 72
== END 2017-12-03 11:26 | disposition home or self-care (01) ==
LOC: OR 06:24
PROVIDERS: ATTEND Obstetrics & Gynecology
DX: Z30.2 Encounter for sterilization (principal); J45.909 Unspecified asthma, uncomplicated; F17.210 Nicotine dependence, cigarettes, uncomplicated
CPT/HCPCS: 81025; 58671; J2250; J1200; J1100; J2710; J2175; J2405; J2001; J3010; J1885; J0330; J2704

== ENCOUNTER 2018-10-06 04:21 | Emergency (ER) | payer OTHER ==
--- NOTE | 2018-10-06 05:25 | XR ---
EXAM: XR Chest, 2 Views CLINICAL HISTORY: ITS.REASON XR Reason: Pain TECHNIQUE: Frontal and lateral views of the chest. COMPARISON: No relevant prior studies available. FINDINGS: Lungs: Unremarkable. No consolidation. Pleural space: Unremarkable. No pneumothorax. Heart: Unremarkable. No cardiomegaly. Mediastinum: Unremarkable. Bones/joints: Unremarkable. IMPRESSION: No acute cardiopulmonary findings.
[2018-10-06] MEDS ORDERED: predniSONE 20 MG TAB PO STA (05:30)
--- NOTE | 2018-10-06 05:30 | ED ---
Back Pain HPI - General Chief Complaint: Back Pain/Injury Stated Complaint: shoulder pain Time Seen by Provider: 10/06/18 04:29 Source: patient Limitations: no limitations - History of Present Illness Initial Comments: This patient is a 28-year-old woman complaining of pain in the right back/ shoulder area the patient states that it had come on in one area of the back and indicates the rhomboids. She noted that the pain has worsened over the past couple of days and also seems to be toward the right axilla. She indicates the pain is worse with reaching for something or with certain movements. No palliating factors. MD Complaint: back pain -: days(s) Place: home Radiation: other (Right arm) Severity: severe Quality: burning, aching Consistency: intermittent Improves With: none Worsens With: movement Context: while lifting, turning/twisting Associated Symptoms: denies other symptoms - Related Data Home Medications Medication Instructions Recorded Confirmed Albuterol Inhaler [Ventolin Hfa 2 - 4 puff INHALATION RT-Q6H PRN 05/08/17 Inhaler] Previous Rx's Medication Instructions Recorded Ibuprofen [Motrin] 600 mg PO Q6HR PRN #30 tab 12/03/17 Methocarbamol [Robaxin-750] 750 mg PO TID PRN #30 tablet 10/06/18 predniSONE 20 mg PO BID #8 tab 10/06/18 Allergies Allergy/AdvReac Type Severity Reaction Status Date / Time No Known Allergies Allergy Verified 11/26/17 15:10 Review of Systems ROS Statement: Those systems with pertinent positive or pertinent negative responses have been documented in the HPI. ROS Other: All systems not noted in ROS Statement are negative. Constitutional: Denies: fever, chills, weakness Respiratory: Denies: cough, dyspnea Cardiovascular: Denies: chest pain, edema Gastrointestinal: Denies: abdominal pain, nausea, vomiting Genitourinary: Denies: dysuria, hematuria Musculoskeletal: Reports: back pain Skin: Denies: rash Neurological: Denies: weakness, numbness, paresthesias Past Medical History Past Medical History: Asthma Additional Past Medical History / Comment(s): pancreatitis. pyloric stenosis, migraines History of Any Multi-Drug Resistant Organisms: None Reported Date of last positivie culture/infection: 2011 MDRO Source:: lt upper thigh area Past Surgical History: Cholecystectomy, Orthopedic Surgery Additional Past Surgical History / Comment(s): lt finger tendon repair Past Anesthesia/Blood Transfusion Reactions: No Reported Reaction Past Psychological History: Anxiety, Depression Smoking Status: Current every day smoker - Past Family History Mother Family Medical History: No Reported History General Exam Limitations: no limitations General appearance: alert, in no apparent distress Head exam: Present: atraumatic, normocephalic Eye exam: Present: normal appearance. Absent: scleral icterus, conjunctival injection ENT exam: Present: normal oropharynx Neck exam: Present: normal inspection, full ROM. Absent: tenderness Respiratory exam: Present: normal lung sounds bilaterally. Absent: respiratory distress, wheezes, rales, rhonchi, stridor Cardiovascular Exam: Present: regular rate, normal rhythm, normal heart sounds. Absent: systolic murmur, diastolic murmur, rubs, gallop GI/Abdominal exam: Present: soft. Absent: tenderness Extremities exam: Present: normal inspection, normal capillary refill. Absent: full ROM, tenderness Back exam: Present: normal inspection, full ROM, paraspinal tenderness, other ( The patient does have tenderness and spasm palpable in the right rhomboid muscles. When the patient attempts to reach out using the right arm this does reproduce her pain. There is also some tenderness the right latissimus near the axillary border). Absent: CVA tenderness (R), CVA tenderness (L), vertebral tenderness Neurological exam: Present: alert. Absent: motor sensory deficit Course Vital Signs 10/06/18 04:23 Temperature 98.1 F Pulse Rate 98 Respiratory 20 Rate Blood Pressure 124/84 O2 Sat by Pulse 98 Oximetry Disposition Clinical Impression: Muscle strain Disposition: HOME SELF-CARE Condition: Fair Instructions (If sedation given, give patient instructions): Muscle Strain (DC) Prescriptions: Methocarbamol [Robaxin-750] 750 mg PO TID PRN #30 tablet PRN Reason: pain predniSONE 20 mg PO BID #8 tab Is patient prescribed a controlled substance at d/c from ED?: No Referrals: Christo Herrera MD [Primary Care Provider] - 1-2 days Panchito Kelly DO [Doctor of Osteopathic Medicine] - 1-2 days
[2018-10-06 06:23] VITALS: BP 117/84; PULSE 95; RESP 16; TEMP 97.9
== END 2018-10-06 05:50 | disposition home or self-care (01) ==
LOC: EC 04:21
DX: S46.911A Strain of unspecified muscle, fascia and tendon at shoulder and upper arm level, right arm, initial encounter (principal); J45.909 Unspecified asthma, uncomplicated; F17.200 Nicotine dependence, unspecified, uncomplicated; X50.1XXA Overexertion from prolonged static or awkward postures, initial encounter
CPT/HCPCS: 71046; 99283

== ENCOUNTER 2020-10-31 11:08 | Emergency (ER) | payer OTHER ==
[2020-10-31 11:18] VITALS: RESP 18; TEMP 98.5
[2020-10-31] MEDS ORDERED: SULFAMETH-TMP DS STARTER PACK 2 TAB BTL PO STA (11:43)
[2020-10-31] MEDS ORDERED: LIDOCAINE 1% INJ 10MG/ML (20 ML MDV) SQ ONE (11:43)
[2020-10-31] MEDS ORDERED: DIAZEPAM 5 MG/ML 2 ML INJ IVP STA (11:43)
[2020-10-31] MEDS ORDERED: CEPHALEXIN 500MG STARTER PACK 4 CAP BTL PO STA (11:43)
--- NOTE | 2020-10-31 11:46 | ED ---
General Adult HPI - General Chief complaint: Urogenital Stated complaint: Female , Cyst Time Seen by Provider: 10/31/20 11:21 Source: patient Mode of arrival: ambulatory Limitations: no limitations - History of Present Illness Initial comments: 30-year-old female with a past medical history of asthma, pancreatitis presents to the emergency room for a chief complaint of abscess of the left labia. Patient states this started last night. Patient states it is very painful and swollen. Patient reports that she has never had these before. She does admit to a history of MRSA. She denies fevers. Denies any chance of , history of tubal ligation.Patient has no other complaints at this time including shortness of breath, chest pain, abdominal pain, nausea or vomiting, headache, or visual changes. - Related Data Home Medications Medication Instructions Recorded Confirmed Albuterol Sulfate [Proair Hfa] 2 puff INHALATION RT-QID PRN 10/31/20 10/31/20 Venlafaxine HCl ER [Effexor Xr] 37.5 mg PO DAILY 10/31/20 10/31/20 lamoTRIgine [LaMICtal] 25 mg PO DAILY 10/31/20 10/31/20 Previous Rx's Medication Instructions Recorded Cephalexin [Keflex] 500 mg PO Q6HR 10 Days #40 cap 10/31/20 Sulfamethox-Tmp 800-160Mg [Bactrim 1 tab PO Q12HR #20 tab 10/31/20 DS 800-160 mg] Allergies Allergy/AdvReac Type Severity Reaction Status Date / Time No Known Allergies Allergy Verified 10/31/20 12:33 Review of Systems ROS Statement: Those systems with pertinent positive or pertinent negative responses have been documented in the HPI. ROS Other: All systems not noted in ROS Statement are negative. Past Medical History Past Medical History: Asthma Additional Past Medical History / Comment(s): pancreatitis. pyloric stenosis, migraines History of Any Multi-Drug Resistant Organisms: MRSA Date of last positivie culture/infection: 2011 MDRO Source:: lt upper thigh area Past Surgical History: Cholecystectomy, Orthopedic Surgery Additional Past Surgical History / Comment(s): lt finger tendon repair Past Anesthesia/Blood Transfusion Reactions: No Reported Reaction Past Psychological History: Anxiety, Depression Smoking Status: Current every day smoker Past Alcohol Use History: None Reported Past Drug Use History: Marijuana - Past Family History Mother Family Medical History: No Reported History General Exam Limitations: no limitations General appearance: alert, anxious Head exam: Present: atraumatic, normocephalic, normal inspection Eye exam: Present: normal appearance, PERRL, EOMI. Absent: scleral icterus, conjunctival injection, periorbital swelling ENT exam: Present: normal exam, mucous membranes moist Neck exam: Present: normal inspection, full ROM Respiratory exam: Present: normal lung sounds bilaterally. Absent: respiratory distress, wheezes Cardiovascular Exam: Present: regular rate, normal rhythm, normal heart sounds. Absent: systolic murmur, diastolic murmur, rubs, gallop, clicks GI/Abdominal exam: Present: soft, normal bowel sounds. Absent: distended, tenderness, guarding, rebound, rigid External exam: Present: erythema, swelling, other (Patient has abscess noted to the left mid to superior labia). Absent: normal external exam, lesions, lacerations, ecchymosis Neurological exam: Present: alert Course Vital Signs 10/31/20 11:15 Temperature 98.5 F Pulse Rate 113 H Respiratory 18 Rate Blood Pressure 153/106 O2 Sat by Pulse 97 Oximetry Procedures - Incision & Drainage Consent Obtained: verbal consent Indication: abscess Site: vulva/vagina Size (cm): 1 Anesthetic Used: lidocaine 1% Amount (mLs): 1 I&D Cleaning Method: Alcohol Wipe Sterile Field Used?: Yes Scalpel Used: #11 I&D Drainage Obtained: Blood Patient Tolerated Procedure: well, no complications Medical Decision Making - Medical Decision Making Patient presents initially tachycardic and hypertensive likely secondary to pain and anxiety as she is very nervous about getting the area lanced. Patient does have erythema with induration noted to the left labia. There is an area of induration without fluctuance that is likely an abscess. Incision and drainage was attempted, no purulent drainage expelled. patient directed to do warm compresses/sitz baths. Patient does have a history of MRSA, will be put on Keflex and Bactrim. Denies any chance of . Recommended she follow up closely with her primary care doctor. She will return here for any worsening symptoms. Disposition Clinical Impression: Labial abscess Disposition: HOME SELF-CARE Condition: Good Instructions (If sedation given, give patient instructions): Abscess (ED), Warm Compress or Soak (ED) Additional Instructions: Take antibiotics as directed. Do warm compresses. Please follow up with primary care and [employer]. Return to the emergency room for any worsening symptoms. Prescriptions: Sulfamethox-Tmp 800-160Mg [Bactrim DS 800-160 mg] 1 tab PO Q12HR #20 tab Cephalexin [Keflex] 500 mg PO Q6HR 10 Days #40 cap Is patient prescribed a controlled substance at d/c from ED?: No Referrals: Christo Herrera MD [Primary Care Provider] - 1-2 days Time of Disposition: 12:58
[2020-10-31 13:03] VITALS: BP 128/95; PULSE 96
== END 2020-10-31 13:14 | disposition home or self-care (01) ==
LOC: EC 11:08
DX: N76.4 Abscess of vulva (principal); J45.909 Unspecified asthma, uncomplicated; F41.9 Anxiety disorder, unspecified; F32.9 Major depressive disorder, single episode, unspecified; F17.200 Nicotine dependence, unspecified, uncomplicated; F12.90 Cannabis use, unspecified, uncomplicated; Z86.14 Personal history of Methicillin resistant Staphylococcus aureus infection
CPT/HCPCS: 99283; 96374; 10060; J3360; J2001

== ENCOUNTER 2021-10-20 18:55 | Emergency (ER) | payer OTHER ==
[2021-10-20 20:31] LABS: Appearance,Urine Clear (Clear); Bilirubin,Urine Negative (Negative); Blood,Urine Moderate (Negative); Color,Urine Yellow; Glucose,Urine (UA) Negative (Negative); Ketones,Urine Negative (Negative); Leukocyte Esterase,Urine Negative (Negative); Mucus,Urine Rare /hpf; Nitrite,Urine Negative (Negative); PH, Urine 6.5 (5.0-8.0); Protein,Urine Negative (Negative); RBC,Urine <1 /hpf (0-5); Specific Gravity,Urine 1.017 (1.001-1.035); Squamous Epithelial Cell,Urine 1 /hpf (0-4); Urobilinogen,Urine <2.0 mg/dL (<2.0); WBC,Urine 4 /hpf (0-5)
[2021-10-20] MEDS ORDERED: KETOROLAC 15 MG/ML 1 ML VIAL IVP STA (21:03)
[2021-10-20] MEDS ORDERED: SODIUM CHLORIDE 0.9% 1,000 ML IV STA (21:03)
[2021-10-20] MEDS ORDERED: ONDANSETRON 4 MG/2 ML VIAL IVP STA (21:03)
[2021-10-20] MEDS ORDERED: IPRATROPIUM-ALBUTEROL 3 ML NEB INHALATION STA (21:05)
[2021-10-20] MEDS ORDERED: DEXAMETHASONE SOD PHOSPHATE 10 MG/ML 1 ML VIAL IVP STA (21:33)
--- NOTE | 2021-10-20 21:36 | XR ---
EXAMINATION TYPE: XR chest 2V DATE OF EXAM: 10/20/2021 COMPARISON: Chest x-ray October 06, 2018 HISTORY: Pain with nausea. TECHNIQUE: Frontal and lateral views of the chest are obtained. FINDINGS: There is no suspicious focal air space opacity, pleural effusion, or pneumothorax seen. L eft upper lung linear scarring or atelectasis is seen currently. The cardiac silhouette size remains within normal limits. Overlying bra strap redemonstrated. The osseous structures are intact. IMPRESSION: No concerning acute pulmonary process.
[2021-10-20 21:42] LABS: Basophils % (A) 0 %; Eosinophils # (A) 0.1 k/uL (0-0.7); Eosinophils % (A) 1 %; HCT 46.4 % (34.0-46.0); HGB 15.3 gm/dL (11.4-16.0); Lymphocytes # (A) 1.8 k/uL (1.0-4.8); Lymphocytes % (A) 24 %; MCH 29.4 pg (25.0-35.0); MCHC 32.9 g/dL (31.0-37.0); MCV 89.2 fL (80.0-100.0); Mean Platelet Volume 8.4; Monocytes # (A) 0.4 k/uL (0-1.0); Monocytes % (A) 5 %; Neutrophils # (A) 5.1 k/uL (1.3-7.7); Neutrophils % (A) 68 %; Platelet Count 224 k/uL (150-450); RDW 13.1 % (11.5-15.5); WBC 7.6 k/uL (3.8-10.6)
[2021-10-20 21:48] LABS: ALT 18 U/L (4-34); AST 22 U/L (14-36); African American GFR (CKD) >90 (>60 ml/min/1.73 sqM); Albumin 4.6 g/dL (3.5-5.0); Alkaline Phosphatase 55 U/L (38-126); Anion Gap 8 mmol/L; Blood Urea Nitrogen 9 mg/dL (7-17); Calcium 9.4 mg/dL (8.4-10.2); Carbon Dioxide 24 mmol/L (22-30); Chloride 106 mmol/L (98-107); Glucose 79 mg/dL (74-99); Lipase 113 U/L (23-300); Non-African American GFR(CKD) >90 (>60 ml/min/1.73 sqM); Potassium 3.9 mmol/L (3.5-5.1); Sodium 138 mmol/L (137-145); Total Bilirubin 0.5 mg/dL (0.2-1.3); Total Protein 7.7 g/dL (6.3-8.2)
[2021-10-20 21:55] LABS: INR 0.9 (<1.2); Partial Thromboplastin Time 24.6 sec (22.0-30.0); Prothrombin Time 10.3 sec (9.0-12.0)
[2021-10-20 22:09] VITALS: BP 171/81; PULSE 77; RESP 20; TEMP 98.2
[2021-10-20] MEDS ORDERED: diphenhydrAMINE 50 MG/ML 1 ML VIAL IVP STA (22:12)
--- NOTE | 2021-10-20 22:28 | ED ---
General Adult HPI - General Chief complaint: Abdominal Pain Stated complaint: N/V Headache Time Seen by Provider: 10/20/21 20:17 Source: patient Mode of arrival: ambulatory - History of Present Illness Initial comments: This 31-year-old female presents emergency Department with headache, nausea, vomiting, cough. patient states she has had episodes of nausea and vomiting that are episodic in nature and states they have been on and off x1 week Patient states she has vomited about every other day one time maximum per day for the last week. Patient states this morning she began having a mild dull headache which has progressed into her migraines. She states this migraine feels like her other regular migraines she has had in her past. Patient states she did try to take Motrin at home, however it only helped her headache slightly. Patient states she has had this in the past and her migraines about just as they do now. Patient states her headache is worsened by light but denies any visual aura. Patient states her headache pain is currently 7 out of 10. Patient denies any abdominal pain. Patient states she does notice some chest discomfort/heaviness for the last couple of days that seems to come and go. Patient states she is not currently having any chest discomfort, however it was there earlier. Patient denies any chest pain, shortness of breath, fever, back or neck pain, abdominal pain, hemoptysis, bowel or bladder changes, hematochezia, lightheadedness, dizziness, change in vision, fast onset headache or worst headache of her life. Patient denies any recent travel, oral contraceptive use or any recent surgeries. - Related Data Previous Rx's Medication Instructions Recorded Albuterol Sulfate [Albuterol 1 - 2 puff PO Q4-6H #8.5 gm 10/20/21 Sulfate Hfa] Ondansetron Odt [Zofran ODT] 4 mg PO Q8HR PRN #10 tab 10/20/21 Allergies Allergy/AdvReac Type Severity Reaction Status Date / Time No Known Allergies Allergy Verified 10/20/21 22:08 Review of Systems ROS Statement: Those systems with pertinent positive or pertinent negative responses have been documented in the HPI. ROS Other: All systems not noted in ROS Statement are negative. Past Medical History Past Medical History: Asthma Additional Past Medical History / Comment(s): pancreatitis. pyloric stenosis, migraines History of Any Multi-Drug Resistant Organisms: MRSA Date of last positivie culture/infection: 2011 MDRO Source:: lt upper thigh area Past Surgical History: Cholecystectomy, Orthopedic Surgery Additional Past Surgical History / Comment(s): lt finger tendon repair Past Anesthesia/Blood Transfusion Reactions: No Reported Reaction Past Psychological History: Anxiety, Depression Smoking Status: Current every day smoker Past Alcohol Use History: None Reported Past Drug Use History: Marijuana - Past Family History Mother Family Medical History: No Reported History General Exam General appearance: alert, in no apparent distress, other (Patient with hoodie covering her eyes due to light taking her migraine worse) Head exam: Present: atraumatic, normocephalic Eye exam: Present: normal appearance, PERRL, EOMI Pupils: Present: normal accommodation ENT exam: Present: mucous membranes moist Neck exam: Present: normal inspection, full ROM. Absent: tenderness, meningismus, lymphadenopathy, thyromegaly Respiratory exam: Present: normal lung sounds bilaterally, wheezes (Wheezing bilaterally which patient states she does have asthma and uses albuterol inha lers 4, however she denies using him one today.). Absent: respiratory distress, rales, rhonchi, stridor, chest wall tenderness Cardiovascular Exam: Present: regular rate, normal rhythm, normal heart sounds. Absent: systolic murmur, diastolic murmur, rubs, gallop, clicks GI/Abdominal exam: Present: soft, normal bowel sounds. Absent: distended, te nderness, guarding, rebound, rigid Extremities exam: Present: full ROM Back exam: Present: normal inspection, full ROM. Absent: CVA tenderness (R), C VA tenderness (L), paraspinal tenderness, vertebral tenderness Neurological exam: Present: alert, oriented X3, CN II-XII intact, normal gait Psychiatric exam: Present: normal affect, normal mood Skin exam: Present: warm, dry, intact, normal color. Absent: rash Course Vital Signs 10/20/21 10/20/21 10/20/21 19:26 21:29 21:37 Temperature 99.6 F Pulse Rate 112 H 89 100 Respiratory 19 Rate Blood Pressure 170/99 O2 Sat by Pulse 98 Oximetry 10/20/21 22:08 Temperature 98.2 F Pulse Rate 77 Respiratory 20 Rate Blood Pressure 171/81 O2 Sat by Pulse 99 Oximetry - Reevaluation(s) Reevaluation #1: 02/28/22 22:10 On reexamination of the patient after receiving medications, patient states she is no longer nauseous. She states her headache is still there but has significantly improved. Auscultation of bilateral lungs with significant improvement and decreased wheezing, patient states her cough has improved and states that she does not feel as "wheezy" as she was. Patient denies any shortness of breath. 10/20/21 23:00 After Benadryl, patient states she is no longer have a headache. Patient states her nausea is gone. Patient states since she doesn't have her albuterol inhaler at home she was wondering if she did feel here today, I did prescribe her a albuterol inhaler and told to follow up with primary care provider. 10/20/21 23:30 Patient no longer has any symptoms and is requesting to be discharged to go home. Patient states she feels better and was requesting some Zofran and an albuterol inhaler for home which I did prescribe and sent to her pharmacy. EKG Findings - EKG Comments: EKG Findings:: EKG impression: Sinus rhythm. Ventricular rate 71 bpm. NM interval 135. QRS duration 96. QT/QTC 366/388 Medical Decision Making - Medical Decision Making This 31-year-old female presents emergency Department with nausea, vomiting, cough and headache. Vital signs unremarkable. Labs all unremarkable. Urine unremarkable. Chest x-ray without any acute abnormalities. After fluids , Zofran and pain medication, patient states that she is no longer nauseous, has not vomited and states her headache has subsided and is gone. She was given Duo Neb here in the emergency department for wheezing that she states she often has due to a history of asthma, wheezing did improve and patient stated her wheezing feels improved. Patient still denies any shortness of breath at this time. Patient did request an albuterol inhaler due to her not having presenting longer at home, I did prescribe her albuterol inhaler and nausea. Strict return precautions were discussed with patient. Patient to follow up with her primary care provider next 1-2 days. Patient verbally agree to plan. Patient sent home in stable condition. Case discussed with my attending, - Lab Data Result diagrams: 10/20/21 21:14 10/20/21 21:14 Lab Results 02/10/20/21 10/20/21 Range/Units 19:54 21:14 21:14 WBC 7.6 (3.8-10.6) k/uL RBC 5.20 (3.80-5.40) m/uL Hgb 15.3 (11.4-16.0) gm/dL Hct 46.4 H (34.0-46.0) % MCV 89.2 (80.0-100.0) fL MCH 29.4 (25.0-35.0) pg MCHC 32.9 (31.0-37.0) g/dL RDW 13.1 (11.5-15.5) % Plt Count 224 (150-450) k/uL MPV 8.4 Neutrophils % 68 % Lymphocytes % 24 % Monocytes % 5 % Eosinophils % 1 % Basophils % 0 % Neutrophils # 5.1 (1.3-7.7) k/uL Lymphocytes # 1.8 (1.0-4.8) k/uL Monocytes # 0.4 (0-1.0) k/uL Eosinophils # 0.1 (0-0.7) k/uL Basophils # 0.0 (0-0.2) k/uL PT (9.0-12.0) sec INR (<1.2) APTT (22.0-30.0) sec Sodium 138 (137-145) mmol/L Potassium 3.9 (3.5-5.1) mmol/L Chloride 106 (98-107) mmol/L Carbon Dioxide 24 (22-30) mmol/L Anion Gap 8 mmol/L BUN 9 (7-17) mg/dL Creatinine 0.78 (0.52-1.04) mg/dL Est GFR (CKD-EPI)AfAm >90 (>60 ml/min/1.73 sqM) Est GFR (CKD-EPI)NonAf >90 (>60 ml/min/1.73 sqM) Glucose 79 (74-99) mg/dL Plasma Lactic Acid [place] (0.7-2.0) mmol/L Calcium 9.4 (8.4-10.2) mg/dL Total Bilirubin 0.5 (0.2-1.3) mg/dL AST 22 (14-36) U/L ALT 18 (4-34) U/L Alkaline Phosphatase 55 (38-126) U/L Troponin I (0.000-0.034) ng/mL Total Protein 7.7 (6.3-8.2) g/dL Albumin 4.6 (3.5-5.0) g/dL Lipase 113 (23-300) U/L Urine Color Yellow Urine Appearance Clear (Clear) Urine pH 6.5 (5.0-8.0) Ur Specific [place] 1.017 (1.001-1.035) Urine Protein Negative (Negative) Urine Glucose (UA) Negative (Negative) Urine Ketones Negative (Negative) Urine Blood Moderate H (Negative) Urine Nitrite Negative (Negative) Urine Bilirubin Negative (Negative) Urine Urobilinogen <2.0 (<2.0) mg/dL Ur Leukocyte Esterase Negative (Negative) Urine RBC <1 (0-5) /hpf Urine WBC 4 (0-5) /hpf Ur Squamous Epith Cells 1 (0-4) /hpf Urine Mucus Rare H (None) /hpf Coronavirus (PCR) (Not Detectd) 10/20/21 10/20/21 10/20/21 Range/Units 21:14 21:14 21:14 WBC (3.8-10.6) k/uL RBC (3.80-5.40) m/uL Hgb (11.4-16.0) gm/dL Hct (34.0-46.0) % MCV (80.0-100.0) fL MCH (25.0-35.0) pg MCHC (31.0-37.0) g/dL RDW (11.5-15.5) % Plt Count (150-450) k/uL MPV Neutrophils % % Lymphocytes % % Monocytes % % Eosinophils % % Basophils % % Neutrophils # (1.3-7.7) k/uL Lymphocytes # (1.0-4.8) k/uL Monocytes # (0-1.0) k/uL Eosinophils # (0-0.7) k/uL Basophils # (0-0.2) k/uL PT 10.3 (9.0-12.0) sec INR 0.9 (<1.2) APTT 24.6 (22.0-30.0) sec Sodium (137-145) mmol/L Potassium (3.5-5.1) mmol/L Chloride (98-107) mmol/L Carbon Dioxide (22-30) mmol/L Anion Gap mmol/L BUN (7-17) mg/dL Creatinine (0.52-1.04) mg/dL Est GFR (CKD-EPI)AfAm (>60 ml/min/1.73 sqM) Est GFR (CKD-EPI)NonAf (>60 ml/min/1.73 sqM) Glucose (74-99) mg/dL Plasma Lactic Acid [place] 0.7 (0.7-2.0) mmol/L Calcium (8.4-10.2) mg/dL Total Bilirubin (0.2-1.3) mg/dL AST (14-36) U/L ALT (4-34) U/L Alkaline Phosphatase (38-126) U/L Troponin I <0.012 (0.000-0.034) ng/mL Total Protein (6.3-8.2) g/dL Albumin (3.5-5.0) g/dL Lipase (23-300) U/L Urine Color Urine Appearance (Clear) Urine pH (5.0-8.0) Ur Specific [place] (1.001-1.035) Urine Protein (Negative) Urine Glucose (UA) (Negative) Urine Ketones (Negative) Urine Blood (Negative) Urine Nitrite (Negative) Urine Bilirubin (Negative) Urine Urobilinogen (<2.0) mg/dL Ur Leukocyte Esterase (Negative) Urine RBC (0-5) /hpf Urine WBC (0-5) /hpf Ur Squamous Epith Cells (0-4) /hpf Urine Mucus (None) /hpf Coronavirus (PCR) (Not Detectd) 10/20/21 Range/Units 21:14 WBC (3.8-10.6) k/uL RBC (3.80-5.40) m/uL Hgb (11.4-16.0) gm/dL Hct (34.0-46.0) % MCV (80.0-100.0) fL MCH (25.0-35.0) pg MCHC (31.0-37.0) g/dL RDW (11.5-15.5) % Plt Count (150-450) k/uL MPV Neutrophils % % Lymphocytes % % Monocytes % % Eosinophils % % Basophils % % Neutrophils # (1.3-7.7) k/uL Lymphocytes # (1.0-4.8) k/uL Monocytes # (0-1.0) k/uL Eosinophils # (0-0.7) k/uL Basophils # (0-0.2) k/uL PT (9.0-12.0) sec INR (<1.2) APTT (22.0-30.0) sec Sodium (137-145) mmol/L Potassium (3.5-5.1) mmol/L Chloride (98-107) mmol/L Carbon Dioxide (22-30) mmol/L Anion Gap mmol/L BUN (7-17) mg/dL Creatinine (0.52-1.04) mg/dL Est GFR (CKD-EPI)AfAm (>60 ml/min/1.73 sqM) Est GFR (CKD-EPI)NonAf (>60 ml/min/1.73 sqM) Glucose (74-99) mg/dL Plasma Lactic Acid [place] (0.7-2.0) mmol/L Calcium (8.4-10.2) mg/dL Total Bilirubin (0.2-1.3) mg/dL AST (14-36) U/L ALT (4-34) U/L Alkaline Phosphatase (38-126) U/L Troponin I (0.000-0.034) ng/mL Total Protein (6.3-8.2) g/dL Albumin (3.5-5.0) g/dL Lipase (23-300) U/L Urine Color Urine Appearance (Clear) Urine pH (5.0-8.0) Ur Specific [place] (1.001-1.035) Urine Protein (Negative) Urine Glucose (UA) (Negative) Urine Ketones (Negative) Urine Blood (Negative) Urine Nitrite (Negative) Urine Bilirubin (Negative) Urine Urobilinogen (<2.0) mg/dL Ur Leukocyte Esterase (Negative) Urine RBC (0-5) /hpf Urine WBC (0-5) /hpf Ur Squamous Epith Cells (0-4) /hpf Urine Mucus (None) /hpf Coronavirus (PCR) Not Detected (Not Detectd) Disposition Clinical Impression: Nausea and vomiting, Headache, Cough Disposition: HOME SELF-CARE Condition: Stable Instructions (If sedation given, give patient instructions): Acute Nausea and Vomiting (ED), Migraine Headache (ED) Additional Instructions: Please follow-up with your primary care provider next 24-48 hours. Return to the emergency department with any new, worsening, or concerning symptoms. Prescriptions: Albuterol Sulfate [Albuterol Sulfate Hfa] 1 - 2 puff PO Q4-6H #8.5 gm Ondansetron Odt [Zofran ODT] 4 mg PO Q8HR PRN #10 tab PRN Reason: Nausea Is patient prescribed a controlled substance at d/c from ED?: No Referrals: Christo Herrera MD [Primary Care Provider] - 1-2 days Time of Disposition: 23:15
[2021-10-20] MEDS ORDERED: ALBUTEROL HFA INHALER INHALATION STA (23:09)
== END 2021-10-20 23:48 | disposition home or self-care (01) ==
LOC: EC 18:55 → SUPCPDRO 18:55 → EC 23:48
DX: R11.2 Nausea with vomiting, unspecified (principal); R51.9 Headache, unspecified; R05.9 Cough, unspecified; Z20.822 Contact with and (suspected) exposure to COVID-19; J45.909 Unspecified asthma, uncomplicated; F41.9 Anxiety disorder, unspecified; F32.A Depression, unspecified; F17.200 Nicotine dependence, unspecified, uncomplicated; F12.90 Cannabis use, unspecified, uncomplicated; Z79.899 Other long term (current) drug therapy
CPT/HCPCS: 99284; 96374; 96375 ×3; 96361 ×2; 36415; 94640; 93005; 80053; 83605; 83690; 84484; 85025; 85610; 85730; 81001; 87635; 71046; J1200; J1100; J2405; J1885

== ENCOUNTER 2021-10-22 12:48 | Emergency (ER) | payer OTHER ==
[2021-10-22] MEDS ORDERED: SODIUM CHLORIDE 0.9% 1,000 ML IV STA (13:29)
[2021-10-22] MEDS ORDERED: METOCLOPRAMIDE 5 MG/ML 2 ML VIAL IVP STA (13:29)
[2021-10-22] MEDS ORDERED: diphenhydrAMINE 50 MG/ML 1 ML VIAL IVP STA (13:29)
[2021-10-22] MEDS ORDERED: FAMOTIDINE 20 MG/2 ML VIAL IV STA (13:30)
[2021-10-22] MEDS ORDERED: KETOROLAC 15 MG/ML 1 ML VIAL IVP STA (13:31)
[2021-10-22 14:05] LABS: Appearance,Urine Clear (Clear); Bacteria,Urine Rare /hpf; Bilirubin,Urine Negative (Negative); Blood,Urine Moderate (Negative); Color,Urine Light Yellow; Glucose,Urine (UA) Negative (Negative); Ketones,Urine Negative (Negative); Leukocyte Esterase,Urine Negative (Negative); Mucus,Urine Rare /hpf; Nitrite,Urine Negative (Negative); Protein,Urine Negative (Negative); RBC,Urine 3 /hpf (0-5); Specific Gravity,Urine 1.008 (1.001-1.035); Squamous Epithelial Cell,Urine <1 /hpf (0-4); Urobilinogen,Urine <2.0 mg/dL (<2.0); WBC,Urine 2 /hpf (0-5)
[2021-10-22 14:27] LABS: Amphetamine Screen,Urine Not Detected (NotDetected); Barbiturate Screen,Urine Not Detected (NotDetected); Benzodiazepines Screen,Urine Not Detected (NotDetected); Cocaine Screen,Urine Not Detected (NotDetected); Methadone Screen, Urine Not Detected (NotDetected); Opiate Screen,Urine Not Detected (NotDetected); Oxycodone Screen, Urine Not Detected (NotDetected); Phencyclidine Screen,Urine Not Detected (NotDetected); Tricyclic Antidepressant,Urine Not Detected (NotDetected); Urn Cannabinoid Scrn Detected (NotDetected)
[2021-10-22 14:48] LABS: Basophils % (A) 0 %; Eosinophils # (A) 0.1 k/uL (0-0.7); Eosinophils % (A) 1 %; HCT 43.3 % (34.0-46.0); HGB 14.2 gm/dL (11.4-16.0); Lymphocytes # (A) 1.5 k/uL (1.0-4.8); Lymphocytes % (A) 22 %; MCH 29.3 pg (25.0-35.0); MCHC 32.8 g/dL (31.0-37.0); MCV 89.3 fL (80.0-100.0); Mean Platelet Volume 8.5; Monocytes # (A) 0.4 k/uL (0-1.0); Monocytes % (A) 5 %; Neutrophils # (A) 4.7 k/uL (1.3-7.7); Neutrophils % (A) 70 %; Platelet Count 216 k/uL (150-450); RBC 4.85 m/uL (3.80-5.40); RDW 13.3 % (11.5-15.5); WBC 6.8 k/uL (3.8-10.6)
[2021-10-22 14:57] LABS: INR 0.9 (<1.2); Partial Thromboplastin Time 24.1 sec (22.0-30.0); Prothrombin Time 10.1 sec (9.0-12.0)
[2021-10-22 14:58] LABS: ALT 16 U/L (4-34); AST 19 U/L (14-36); African American GFR (CKD) >90 (>60 ml/min/1.73 sqM); Albumin 4.1 g/dL (3.5-5.0); Alcohol <10 mg/dL; Alkaline Phosphatase 47 U/L (38-126); Amylase 45 U/L (30-110); Anion Gap 7 mmol/L; Blood Urea Nitrogen 10 mg/dL (7-17); Carbon Dioxide 23 mmol/L (22-30); Chloride 107 mmol/L (98-107); Glucose 79 mg/dL (74-99); Lipase 74 U/L (23-300); Non-African American GFR(CKD) >90 (>60 ml/min/1.73 sqM); Potassium 3.9 mmol/L (3.5-5.1); Sodium 137 mmol/L (137-145); Total Bilirubin 0.5 mg/dL (0.2-1.3); Total Protein 6.9 g/dL (6.3-8.2)
[2021-10-22] MEDS ORDERED: cefTRIAXone 250 MG VIAL IM STA (15:10)
[2021-10-22] MEDS ORDERED: metroNIDAZOLE 500 MG TAB PO STA (15:12)
[2021-10-22 16:22] LABS: HCG,Qualitative Serum Not Detected
[2021-10-22] MEDS ORDERED: cefTRIAXone IN SWFI 1,000 MG/10 ML SYRINGE IVP STA (16:27)
[2021-10-22 16:35] VITALS: TEMP 98.3
[2021-10-22 18:40] VITALS: RESP 18
--- NOTE | 2021-10-22 20:12 | ED ---
General Adult HPI <PatricioShay lau - Last Filed: 10/22/21 23:18> - General Source: patient, RN notes reviewed, old records reviewed Mode of arrival: ambulatory <Yobany Monaco - Last Filed: 10/24/21 00:17> - General Chief complaint: Psychiatric Symptoms Stated complaint: Vomiting/Headache Time Seen by Provider: 10/22/21 13:28 - History of Present Illness Initial comments: Patient is a 31-year-old female with past medical history remarkable for depression, asthma who presents emergency Department complaining of worsening depression. She endorses worsening stress lately. She states when her depression gets bad, she experiences mild headaches, migraines as well as nausea and nonbilious nonbloody vomiting. Describes her headache as a tight belt like sensation around her head. Typical headache for her. No trauma. Denies any abdominal pain. Denies being . Is concerned for possible STI's. Denies any discharge. Requesting empiric treatment as well as testing. Denies any urinary complaints. Is currently on her period. His no other acute complaints at this time. Was instructed to come here by her psychiatrist that she is unable to follow up with them outpatient and wants to be evaluated by psychiatry here for possible medication adjustment for depression. Denies any suicidal or homicidal ideations, attempts, plans. Denies any visual or auditory hallucinations. (Yobany Monaco) - Related Data Previous Rx's Medication Instructions Recorded Famotidine [Pepcid] 20 mg PO BID #14 tablet 10/22/21 Metoclopramide [Reglan] 10 mg PO TID PRN #12 tab 10/22/21 Allergies Allergy/AdvReac Type Severity Reaction Status Date / Time No Known Allergies Allergy Verified 10/22/21 14:18 Review of Systems ROS Other: All systems not noted in ROS Statement are negative. <Shay Mahan - Last Filed: 10/22/21 23:18> ROS Other: All systems not noted in ROS Statement are negative. <Yobany Monaco - Last Filed: 10/24/21 00:17> ROS Statement: Those systems with pertinent positive or pertinent negative responses have been documented in the HPI. Review of Systems: CONST: Denies fever EYES: Denies blurry vision ENT: Denies nasal congestion C/V: Denies Chest pain RESP: Denies shortness of breath GI: Denies abdominal pain : Denies dysuria SKIN: Denies rash. MSK: Denies joint pain. NEURO: Endorses headache PSYCH: Denies suicidal and homicidal ideations/plans/attempts. Denies visual or auditory hallucinations. (Yobany Monaco) Past Medical History Past Medical History: Asthma Additional Past Medical History / Comment(s): pancreatitis. pyloric stenosis, m igraines History of Any Multi-Drug Resistant Organisms: MRSA Date of last positivie culture/infection: 2011 MDRO Source:: lt upper thigh area Past Surgical History: Cholecystectomy, Orthopedic Surgery Additional Past Surgical History / Comment(s): lt finger tendon repair Past Anesthesia/Blood Transfusion Reactions: No Reported Reaction Past Psychological History: Anxiety, Depression Smoking Status: Current every day smoker Past Alcohol Use History: None Reported Past Drug Use History: Marijuana - Past Family History Mother Family Medical History: No Reported History <Yobany Monaco - Last Filed: 10/24/21 00:17> General Exam <Yobany Monaco - Last Filed: 10/24/21 00:17> - General Exam Comments Initial Comments: General: Appears in no acute distress. HEAD: Normal with no signs of head trauma. EYES: PERRLA, EOMI, conjunctiva normal, no discharge. ENT: Hearing grossly intact, normal oropharynx. RESPIRATORY: Clear breath sounds bilaterally. No wheezes, rales, or rhonchi. C/V: Regular rate and rhythm. S1 and S2 auscultated, no edema, peripheral pulses 2+ and intact throughout ABD: Abd is soft, nontender, nondistended EXT: Normal range of motion, no obvious deformity SKIN: No rashes or lesions observed on exposed skin. NEURO: Alert and oriented 4. No focal sensory strength deficits. (Yobany Monaco) Course Vital Signs 10/22/21 10/22/21 10/22/21 13:15 16:34 18:37 Temperature 97.8 F 98.3 F Pulse Rate 85 88 85 Respiratory 18 16 18 Rate Blood Pressure 157/118 135/93 131/86 O2 Sat by Pulse 98 98 98 Oximetry 10/22/21 23:39 Temperature 98.3 F Pulse Rate 80 Respiratory 18 Rate Blood Pressure 133/86 O2 Sat by Pulse 98 Oximetry Medical Decision Making - Lab Data Result diagrams: 10/22/21 14:32 10/22/21 14:32 <Shay Mahan - Last Filed: 10/22/21 23:18> - Lab Data Result diagrams: 10/22/21 14:32 10/22/21 14:32 <Yobany Monaco - Last Filed: 10/24/21 00:17> - Medical Decision Making Based on the patient's presentation and physical exam, she is seeking psychiatric evaluation. She is also having her typical headaches as well as n ausea and vomiting associated with her depression. Therefore we will obtain abdominal laboratory studies, and patient will receive migraine cocktail consisting of IV fluids, Toradol, famotidine, Reglan, Benadryl. She was in agreement with this plan. Patient will be medically cleared first. Urine studies for STDs were sent. They're still pending at this time. She'll be empirically treated with 500 mg of IV Rocephin, 500 mg of Flagyl, as well as 100 mg of doxycycline. She'll receive a prescription for doxycycline as well.I did offer the patient a pelvic exam, however she requests urine testing. Laboratory studies were relatively unremarkable including a negative test, negative urinalysis. UDS was positive for marijuana. Alcohol level is negative. On reevaluation come patient is feeling improved. I informed her the results of laboratory studies. She will be medically cleared. Disposition is pending psychiatric evaluation. She can follow-up outpatient with her STD results. Patient was signed out to the oncoming ED physician pending psych eval. Patient was eventually cleared by psych for discharge. Doxycycline script was sent to her pharmacy. (Yobany Monaco) - Lab Data Lab Results 10/22/21 10/22/21 10/22/21 Range/Units 13:30 13:30 14:32 WBC 6.8 (3.8-10.6) k/uL RBC 4.85 (3.80-5.40) m/uL Hgb 14.2 (11.4-16.0) gm/dL Hct 43.3 (34.0-46.0) % MCV 89.3 (80.0-100.0) fL MCH 29.3 (25.0-35.0) pg MCHC 32.8 (31.0-37.0) g/dL RDW 13.3 (11.5-15.5) % Plt Count 216 (150-450) k/uL MPV 8.5 Neutrophils % 70 % Lymphocytes % 22 % Monocytes % 5 % Eosinophils % 1 % Basophils % 0 % Neutrophils # 4.7 (1.3-7.7) k/uL Lymphocytes # 1.5 (1.0-4.8) k/uL Monocytes # 0.4 (0-1.0) k/uL Eosinophils # 0.1 (0-0.7) k/uL Basophils # 0.0 (0-0.2) k/uL PT (9.0-12.0) sec INR (<1.2) APTT (22.0-30.0) sec Sodium (137-145) mmol/L Potassium (3.5-5.1) mmol/L Chloride (98-107) mmol/L Carbon Dioxide (22-30) mmol/L Anion Gap mmol/L BUN (7-17) mg/dL Creatinine (0.52-1.04) mg/dL Est GFR (CKD-EPI)AfAm (>60 ml/min/1.73 sqM) Est GFR (CKD-EPI)NonAf (>60 ml/min/1.73 sqM) Glucose (74-99) mg/dL Calcium (8.4-10.2) mg/dL Total Bilirubin (0.2-1.3) mg/dL AST (14-36) U/L ALT (4-34) U/L Alkaline Phosphatase (38-126) U/L Total Protein (6.3-8.2) g/dL Albumin (3.5-5.0) g/dL Amylase (30-110) U/L Lipase (23-300) U/L HCG, Qual Urine Color Light Yellow Urine Appearance Clear (Clear) Urine pH 6.0 (5.0-8.0) Ur Specific [place] 1.008 (1.001-1.035) Urine Protein Negative (Negative) Urine Glucose (UA) Negative (Negative) Urine Ketones Negative (Negative) Urine Blood Moderate H (Negative) Urine Nitrite Negative (Negative) Urine Bilirubin Negative (Negative) Urine Urobilinogen <2.0 (<2.0) mg/dL Ur Leukocyte Esterase Negative (Negative) Urine RBC 3 (0-5) /hpf Urine WBC 2 (0-5) /hpf Ur Squamous Epith Cells <1 (0-4) /hpf Urine Bacteria Rare H (None) /hpf Urine Mucus Rare H (None) /hpf Urine Opiates Screen Not Detected (NotDetected) Ur Oxycodone Screen Not Detected (NotDetected) Urine Methadone Screen Not Detected (NotDetected) Ur Propoxyphene Screen Not Detected (NotDetected) Ur Barbiturates Screen Not Detected (NotDetected) U Tricyclic Antidepress Not Detected (NotDetected) Ur Phencyclidine Scrn Not Detected (NotDetected) Ur Amphetamines Screen Not Detected (NotDetected) U Methamphetamines Scrn Not Detected (NotDetected) U Benzodiazepines Scrn Not Detected (NotDetected) Urine Cocaine Screen Not Detected (NotDetected) U Marijuana (THC) Screen Detected H (NotDetected) Serum Alcohol mg/dL 10/22/21 10/22/21 Range/Units 14:32 14:32 WBC (3.8-10.6) k/uL RBC (3.80-5.40) m/uL Hgb (11.4-16.0) gm/dL Hct (34.0-46.0) % MCV (80.0-100.0) fL MCH (25.0-35.0) pg MCHC (31.0-37.0) g/dL RDW (11.5-15.5) % Plt Count (150-450) k/uL MPV Neutrophils % % Lymphocytes % % Monocytes % % Eosinophils % % Basophils % % Neutrophils # (1.3-7.7) k/uL Lymphocytes # (1.0-4.8) k/uL Monocytes # (0-1.0) k/uL Eosinophils # (0-0.7) k/uL Basophils # (0-0.2) k/uL PT 10.1 (9.0-12.0) sec INR 0.9 (<1.2) APTT 24.1 (22.0-30.0) sec Sodium 137 (137-145) mmol/L Potassium 3.9 (3.5-5.1) mmol/L Chloride 107 (98-107) mmol/L Carbon Dioxide 23 (22-30) mmol/L Anion Gap 7 mmol/L BUN 10 (7-17) mg/dL Creatinine 0.76 (0.52-1.04) mg/dL Est GFR (CKD-EPI)AfAm >90 (>60 ml/min/1.73 sqM) Est GFR (CKD-EPI)NonAf >90 (>60 ml/min/1.73 sqM) Glucose 79 (74-99) mg/dL Calcium 9.0 (8.4-10.2) mg/dL Total Bilirubin 0.5 (0.2-1.3) mg/dL AST 19 (14-36) U/L ALT 16 (4-34) U/L Alkaline Phosphatase 47 (38-126) U/L Total Protein 6.9 (6.3-8.2) g/dL Albumin 4.1 (3.5-5.0) g/dL Amylase 45 (30-110) U/L Lipase 74 (23-300) U/L HCG, Qual Not Detected Urine Color Urine Appearance (Clear) Urine pH (5.0-8.0) Ur Specific [place] (1.001-1.035) Urine Protein (Negative) Urine Glucose (UA) (Negative) Urine Ketones (Negative) Urine Blood (Negative) Urine Nitrite (Negative) Urine Bilirubin (Negative) Urine Urobilinogen (<2.0) mg/dL Ur Leukocyte Esterase (Negative) Urine RBC (0-5) /hpf Urine WBC (0-5) /hpf Ur Squamous Epith Cells (0-4) /hpf Urine Bacteria (None) /hpf Urine Mucus (None) /hpf Urine Opiates Screen (NotDetected) Ur Oxycodone Screen (NotDetected) Urine Methadone Screen (NotDetected) Ur Propoxyphene Screen (NotDetected) Ur Barbiturates Screen (NotDetected) U Tricyclic Antidepress (NotDetected) Ur Phencyclidine Scrn (NotDetected) Ur Amphetamines Screen (NotDetected) U Methamphetamines Scrn (NotDetected) U Benzodiazepines Scrn (NotDetected) Urine Cocaine Screen (NotDetected) U Marijuana (THC) Screen (NotDetected) Serum Alcohol <10 mg/dL Disposition Is patient prescribed a controlled substance at d/c from ED?: No <Shay Mahan - Last Filed: 10/22/21 23:18> <Yobany Monaco - Last Filed: 10/24/21 00:17> Clinical Impression: Depression, Encounter for psychiatric assessment, STD exposure, Headache, Nausea & vomiting Disposition: HOME SELF-CARE Condition: Good Prescriptions: Famotidine [Pepcid] 20 mg PO BID #14 tablet Metoclopramide [Reglan] 10 mg PO TID PRN #12 tab PRN Reason: Nausea Referrals: Christo Herrera MD [Primary Care Provider] - 1-2 days
[2021-10-22] MEDS ORDERED: DOXYCYCLINE 100 MG CAP PO SCH (21:00)
[2021-10-22 23:42] VITALS: BP 133/86; PULSE 80
== END 2021-10-22 23:43 | disposition home or self-care (01) ==
LOC: EC 12:48
DX: F32.A Depression, unspecified (principal); R51.9 Headache, unspecified; R11.2 Nausea with vomiting, unspecified; J45.909 Unspecified asthma, uncomplicated; F41.9 Anxiety disorder, unspecified; F17.200 Nicotine dependence, unspecified, uncomplicated; F12.90 Cannabis use, unspecified, uncomplicated; Z20.2 Contact with and (suspected) exposure to infections with a predominantly sexual mode of transmission; Z90.49 Acquired absence of other specified parts of digestive tract
CPT/HCPCS: 99284; 96374; 96375 ×4; 96361; 82075; 36415; 80053; 82150; 83690; 85025; 85610; 85730; 81001; 84703; 87491; 87591; 80306; G0480; J1200; J2765; J0696; J1885; 80320

== ENCOUNTER → 2023-01-27 | Outpatient (CLI) | payer OTHER ==
--- NOTE | 2023-01-28 10:01 | CA ---
Transthoracic Echo Report Name: Sadia Hatfield Age: 32 Gender: F : 1990 Exam Date: 01/27/2023 13:51 Exam Location: [facility] Ht (in): 65 Wt (lb): 229 Ordering Physician: Rickey Mccarthy MD Attending/Referring Phys: Learning Program Manager Yasmin Evans RDCS Procedure CPT: Indications: I10 I47.1 Cardiac Hx: Technical Quality: Fair Contrast 1: Total Dose (mL): Contrast 2: Total Dose (mL): MEASUREMENTS (Male / Female) Normal Values 2D ECHO LV Diastolic Diameter PLAX 4.3 cm 4.2 - 5.9 / 3.9 - 5.3 cm LV Systolic Diameter PLAX 3.2 cm IVS Diastolic Thickness 1.3 cm 0.6 - 1.0 / 0.6 - 0.9 cm LVPW Diastolic Thickness 1.3 cm 0.6 - 1.0 / 0.6 - 0.9 cm LV Relative Wall Thickness 0.6 RV Internal Dim ED PLAX 3.0 cm LA Volume 37.8 cm??? 18 - 58 / 22 - 52 cm??? M-MODE Aortic Root Diameter MM 3.4 cm LA Systolic Diameter MM 3.0 cm LA Ao Ratio MM 0.9 AV Cusp Separation MM 2.2 cm DOPPLER AV Peak Velocity 111.2 cm/s AV Peak Gradient 4.9 mmHg AV Mean Velocity 89.5 cm/s AV Mean Gradient 3.4 mmHg AV Velocity Time Integral 22.1 cm LVOT Peak Velocity 87.7 cm/s LVOT Peak Gradient 3.1 mmHg LVOT Velocity Time Integral 18.4 cm MV Area PHT 3.6 cm??? Mitral E Point Velocity 56.9 cm/s Mitral A Point Velocity 69.2 cm/s Mitral E to A Ratio 0.8 MV Deceleration Time 210.2 ms MV E' Velocity 8.3 cm/s Mitral E to MV E' Ratio 6.9 TR Peak Velocity 196.0 cm/s TR Peak Gradient 15.4 mmHg Right Ventricular Systolic Press 20.4 mmHg FINDINGS Left Ventricle Mildly increased left ventricular wall thickness. Left ventricular cavity size normal. Normal left ventricular systolic function with no obvious regional wall motion abnormalities. Left ventricular ejection fraction is estimated at 55-60 %. Right Ventricle Normal right ventricular size and function. Right ventricular systolic pressure within normal limits. Right Atrium Normal right atrial size. Left Atrium Normal left atrial size. Mitral Valve Structurally normal mitral valve. No mitral stenosis or prolapse. Trace mitral regurgitation. Aortic Valve Trileaflet aortic valve. No aortic valve stenosis or regurgitation. Tricuspid Valve Structurally normal tricuspid valve. Mild tricuspid regurgitation. Pulmonic Valve Trace pulmonic regurgitation. Pericardium No pericardial effusion. Aorta Normal size aortic root and proximal ascending aorta. CONCLUSIONS Normal biventricular dimension and systolic function Normal pulmonary artery systolic pressure Normal intracardiac valves Previewed by: Dr. Lucas Patton MD (Electronically Signed) Final Date: 28 January 2023 10:00
== END | disposition home or self-care (01) ==
LOC: RADECHMAIN 13:39
PROVIDERS: ATTEND Internal Medicine
DX: I47.1 Supraventricular tachycardia (principal); I10 Essential (primary) hypertension
CPT/HCPCS: 93306

== ENCOUNTER → 2023-02-10 | Outpatient (CLI) | payer OTHER ==
--- NOTE | 2023-02-10 11:36 | MR ---
EXAMINATION TYPE: MR brain wo/w con DATE OF EXAM: 02/10/2023 COMPARISON: CT brain 10/19/2022 HISTORY: Tinnitus TECHNIQUE: Multiplanar, multisequence images of the brain and brainstem is performed without and with IV contras t, utilizing 10 mL intravenous Gadavist . FINDINGS: Diffusion weighted images demonstrate no evidence of a recent infarct or other diffusion ab normality. There couple areas of nonspecific signal seen within the white matter parietal lobe bilat erally.. The ventricular system and cisternal spaces are normal in size and appearance. The brain v olume is age appropriate. A prominent Virchow-Jus space noted in the bilateral basal ganglia. Midline structures demonstrate normal morphology. Low-lying cerebellar tonsils at the level of the fo ramen magnum. Post contrast images demonstrate no abnormal enhancement. The dural venous sinuses rosie ear patent. Changes of mild sinusitis and the globes are intact. IMPRESSION: 1. No acute process. There are couple of subcentimeter focal areas of abnormal signal in the parietal white matter. Suspect this most likely is artifactual in 2. There are Low-lying cerebellar tonsils with no evidence of tonsillar beaking.
== END | disposition home or self-care (01) ==
LOC: RADMRIMAIN 10:27
PROVIDERS: ATTEND Internal Medicine
DX: H93.13 Tinnitus, bilateral (principal); J35.8 Other chronic diseases of tonsils and adenoids; R90.82 White matter disease, unspecified
CPT/HCPCS: 70553; A9585

== ENCOUNTER 2023-05-06 09:05 | Emergency (ER) | payer OTHER ==
--- NOTE | 2023-05-06 10:19 | ED ---
ENT HPI - General Chief complaint: ENT Stated complaint: ENT Time Seen by Provider: 05/06/23 10:18 Source: patient, RN notes reviewed Mode of arrival: ambulatory Limitations: no limitations - History of Present Illness Initial comments: 32-year-old female presents emergency Department with chief complaint of bilateral ear pain. Patient states his been getting worse since September she is scheduled see ENT. Patient states that she is having ringing in ears she states she has some congestion but not worsened usual no fever. Patient offers no other some she is symptoms - Related Data Home Medications Medication Instructions Recorded Confirmed Buspar(Unknown Dose) 1 tab PO DAILY PRN 10/15/22 10/17/22 Previous Rx's Medication Instructions Recorded Metoprolol Tartrate [Lopressor] 25 mg PO BID 30 Days #60 tab 10/20/22 hydroCHLOROthiazide [Hydrodiuril] 25 mg PO DAILY 30 Days #30 tab 10/20/22 Amoxic-Pot Clav 875-125Mg 1 tab PO Q12HR 1 Days #2 tab 05/06/23 [Augmentin 875-125] Cetirizine HCl/Pseudoephedrine 1 tab PO Q12H 10 Days #20 tab 05/06/23 [Zyrtec-D ER 5 mg-120 mg Tablet] Oxymetazoline 0.05% Nasl [place] 2 spray EA NOSTRIL BID 5 Days #15 05/06/23 [Afrin 0.05% Nasal [place]] ml Allergies Allergy/AdvReac Type Severity Reaction Status Date / Time No Known Allergies Allergy Verified 05/06/23 09:10 Review of Systems ROS Statement: Those systems with pertinent positive or pertinent negative responses have been documented in the HPI. ROS Other: All systems not noted in ROS Statement are negative. Past Medical History Past Medical History: Asthma Additional Past Medical History / Comment(s): pancreatitis. pyloric stenosis, migraines History of Any Multi-Drug Resistant Organisms: MRSA Date of last positivie culture/infection: 2011 MDRO Source:: lt upper thigh area Past Surgical History: Cholecystectomy, Orthopedic Surgery Additional Past Surgical History / Comment(s): lt finger tendon repair Past Anesthesia/Blood Transfusion Reactions: No Reported Reaction Past Psychological History: Anxiety, Depression Smoking Status: Current every day smoker Past Alcohol Use History: None Reported Past Drug Use History: Marijuana, Methamphetamine - Past Family History Mother Family Medical History: Hypertension General Exam - General Exam Comments Initial Comments: Visual Physical Exam Vital signs reviewed General: Well-appearing, nontoxic, no acute distress. Head: Normocephalic, atraumatic Eyes: PERRLA, EOMI ENT: Airway patent Chest: Nonlabored breathing Skin: No visual rash, normal skin tone Neuro: Alert and oriented 3 Musculoskeletal: No gross abnormalities Limitations: no limitations Course Vital Signs 05/06/23 05/06/23 09:11 11:47 Temperature 97.3 F L 98.1 F Pulse Rate 85 90 Respiratory 16 18 Rate Blood Pressure 119/84 120/82 O2 Sat by Pulse 98 100 Oximetry Medical Decision Making - Medical Decision Making I performed a quick note portion of this chart signed Barrington Peraza PA-C Disposition Clinical Impression: Serous otitis media, Eustachian tube dysfunction, Chronic sinusitis Disposition: HOME SELF-CARE Instructions (If sedation given, give patient instructions): Sinusitis (ED), Earache (ED), Fluid In The Ear (Serous Otitis Media) (ED) Additional Instructions: Follow up with ENT specialist. Prescriptions: Oxymetazoline 0.05% Nasl [place] [Afrin 0.05% Nasal [place]] 2 spray EA NOSTRIL BID 5 Days #15 ml Amoxic-Pot Clav 875-125Mg [Augmentin 875-125] 1 tab PO Q12HR 1 Days #2 tab Cetirizine HCl/Pseudoephedrine [Zyrtec-D ER 5 mg-120 mg Tablet] 1 tab PO Q12H 10 Days #20 tab Is patient prescribed a controlled substance at d/c from ED?: No Referrals: Reggie Ribeiro DO [Doctor of Osteopathic Medicine] - 1-2 days Rickey Mccarthy MD [Primary Care Provider] - 1-2 days
--- NOTE | 2023-05-06 11:06 | ED ---
ENT HPI - General Chief complaint: ENT Stated complaint: ENT Time Seen by Provider: 05/06/23 10:18 Source: patient, RN notes reviewed Mode of arrival: ambulatory Limitations: no limitations - History of Present Illness Initial comments: The patient is a 32-year-old female with a history of hypertension and substance abuse who presents emergency room with complaints of bilateral ear pain for the last 4 days. Patient states she has had ongoing throbbing in her ears since September but the pain became worse 4 days ago. She has some occasional drainage and facial pressure over the maxillary and frontal sinuses. She denies any fevers nausea, vomiting, diarrhea, cough or significant sore throat. Patient states she has been waiting for 4 months to hear back from the ENT specialist for a follow-up appointment. MD complaint: ear pain -: days(s) (4) Location: R ear, L ear Quality: dull Consistency: constant Improves with: none - Related Data Home Medications Medication Instructions Recorded Confirmed Buspar(Unknown Dose) 1 tab PO DAILY PRN 10/15/22 10/17/22 Previous Rx's Medication Instructions Recorded Metoprolol Tartrate [Lopressor] 25 mg PO BID 30 Days #60 tab 10/20/22 hydroCHLOROthiazide [Hydrodiuril] 25 mg PO DAILY 30 Days #30 tab 10/20/22 Amoxic-Pot Clav 875-125Mg 1 tab PO Q12HR 1 Days #2 tab 05/06/23 [Augmentin 875-125] Cetirizine HCl/Pseudoephedrine 1 tab PO Q12H 10 Days #20 tab 05/06/23 [Zyrtec-D ER 5 mg-120 mg Tablet] Oxymetazoline 0.05% Nasl [place] 2 spray EA NOSTRIL BID 5 Days #15 05/06/23 [Afrin 0.05% Nasal [place]] ml Allergies Allergy/AdvReac Type Severity Reaction Status Date / Time No Known Allergies Allergy Verified 05/06/23 09:10 Review of Systems ROS Statement: Those systems with pertinent positive or pertinent negative responses have been documented in the HPI. ROS Other: All systems not noted in ROS Statement are negative. Past Medical History Past Medical History: Asthma Additional Past Medical History / Comment(s): pancreatitis. pyloric stenosis, migraines History of Any Multi-Drug Resistant Organisms: MRSA Date of last positivie culture/infection: 2011 MDRO Source:: lt upper thigh area Past Surgical History: Cholecystectomy, Orthopedic Surgery Additional Past Surgical History / Comment(s): lt finger tendon repair Past Anesthesia/Blood Transfusion Reactions: No Reported Reaction Past Psychological History: Anxiety, Depression Smoking Status: Current every day smoker Past Alcohol Use History: None Reported Past Drug Use History: Marijuana, Methamphetamine - Past Family History Mother Family Medical History: Hypertension General Exam - General Exam Comments Initial Comments: Mild to moderate erythema of the bilateral ear with fluid behind bilateral TM no severe bulging, no perforation. no pain with palpation. no mastoid tenderness. no hematympanum. pressure over maxillary sinuses with palpation. Limitations: no limitations General appearance: alert, in no apparent distress Head exam: Present: normocephalic Eye exam: Present: normal appearance, PERRL ENT exam: Present: normal oropharynx, normal external ear exam, other (no mastoid tenderness. bilateral serous otitis with mild erythema) Neck exam: Present: normal inspection Neurological exam: Present: alert, oriented X3 Psychiatric exam: Present: normal affect, normal mood Course Vital Signs 05/06/23 05/06/23 09:11 11:47 Temperature 97.3 F L 98.1 F Pulse Rate 85 90 Respiratory 16 18 Rate Blood Pressure 119/84 120/82 O2 Sat by Pulse 98 100 Oximetry - Reevaluation(s) Reevaluation #1: 05/06/23 10:59 i discussed admission with the patient including the decongestant, nasal spray and I will do a course of antibiotics given the erythema. Discussed following up with ENT specialist for ongoing issues. Medical Decision Making - Medical Decision Making Was pt. sent in by a medical professional or institution (, PA, GRANTS ADMINISTRATOR, urgent care, hospital, or care home...) When possible be specific @ -[No] Did you speak to anyone other than the patient for history (EMS, parent, family, police, friend...)? What history was obtained from this source @ -[No] Did you review nursing and triage notes (agree or disagree)? Why? @ -[I reviewed and agree with nursing and triage notes] Were old charts reviewed (outside hosp., previous admission, EMS record, old EKG , old radiological studies, urgent care reports/EKG's, care home records)? Report findings @ -[No old charts were reviewed] Differential Diagnosis (chest pain, altered mental status, abdominal pain women, abdominal pain men, vaginal bleeding, weakness, fever, dyspnea, syncope, headache, dizziness, GI bleed, back pain, seizure, CVA, palpatations, mental hea lth, musculoskeletal)? @ -Otitis media, otitis externa, serous otitis externa, sinusitis, URI EKG interpreted by me (3pts min.). @ -[As above] X-rays interpreted by me (1pt min.). @ -[None done] CT interpreted by me (1pt min.). @ -[None done] U/S interpreted by me (1pt. min.). @ -[None done] What testing was considered but not performed or refused? (CT, X-rays, U/S, labs)? Why? @ -[None] What meds were considered but not given or refused? Why? @ -[None] Did you discuss the management of the patient with other professionals (pro fessionals i.e. , PA, GRANTS ADMINISTRATOR, lab, RT, psych nurse, elementary school social worker, mamma logist, teacher, chief operating officer, case management coordinator)? Give summary @ -Discussed patient's symptoms and medical management with attending ED physician Dr. King today. Was smoking cessation discussed for >3mins.? @ -[No] Was critical care preformed (if so, how long)? @ -[No] Were there social determinants of health that impacted care today? How? (Homelessness, low income, unemployed, alcoholism, drug addiction, transportati on, low edu. Level, literacy, decrease access to med. care, alf, rehab)? @ -[No] Was there de-escalation of care discussed even if they declined (Discuss DNR or withdrawal of care, Hospice)? DNR status @ -[No] What co-morbidities impacted this encounter? (DM, HTN, Smoking, COPD, CAD, Cancer, CVA, ARF, Chemo, Hep., AIDS, mental health diagnosis, sleep apnea, morbid obesity)? @ -[None] Was patient admitted / discharged? Hospital course, mention meds given and route, prescriptions, significant lab abnormalities, going to OR and other pertinent info. @ -This is a minor serous otitis medial with sinusitis that may be treated as an outpatient. Patient is stable for outpatient treatment and follow-up and does not require admission at this time. She understands she is to follow-up with ENT specialist. She understands signs return to emergency room. Undiagnosed new problem with uncertain prognosis? @ -[No] Drug Therapy requiring intensive monitoring for toxicity (Heparin, Nitro, Insulin, Cardizem)? @ -[No] Were any procedures done? @ -[No] Diagnosis/symptom? @ -serous otitis media, eustachian tube dysfunction Acute, or Chronic, or Acute on Chronic? @ -Acute Uncomplicated (without systemic symptoms) or Complicated (systemic symptoms)? @ -Uncomplicated Side effects of treatment? @ -[No] Exacerbation, Progression, or Severe Exacerbation? @ -[No] Poses a threat to life or bodily function? How? (Chest pain, [place], [place], pneumonia, PE, COPD, DKA, ARF, appy, cholecystitis, CVA, Diverticulitis, Homicidal, Suicidal, threat to staff... and all critical care pts) @ -[No] Disposition Clinical Impression: Serous otitis media, Eustachian tube dysfunction, Chronic sinusitis Disposition: HOME SELF-CARE Instructions (If sedation given, give patient instructions): Sinusitis (ED), Earache (ED), Fluid In The Ear (Serous Otitis Media) (ED) Additional Instructions: Follow up with ENT specialist. Prescriptions: Oxymetazoline 0.05% Nasl [place] [Afrin 0.05% Nasal [place]] 2 spray EA NOSTRIL BID 5 Days #15 ml Amoxic-Pot Clav 875-125Mg [Augmentin 875-125] 1 tab PO Q12HR 1 Days #2 tab Cetirizine HCl/Pseudoephedrine [Zyrtec-D ER 5 mg-120 mg Tablet] 1 tab PO Q12H 10 Days #20 tab Is patient prescribed a controlled substance at d/c from ED?: No Referrals: Rickey Mccarthy MD [Primary Care Provider] - 1-2 days Reggie Ribeiro DO [Doctor of Osteopathic Medicine] - 1-2 days Time of Disposition: 11:16
[2023-05-06 15:59] VITALS: BP 120/82; PULSE 90; RESP 18; TEMP 98.1
== END 2023-05-06 11:58 | disposition home or self-care (01) ==
LOC: EC 09:05
DX: H65.93 Unspecified nonsuppurative otitis media, bilateral (principal); H69.93 Unspecified Eustachian tube disorder, bilateral; J32.9 Chronic sinusitis, unspecified; I10 Essential (primary) hypertension; J45.909 Unspecified asthma, uncomplicated; F32.A Depression, unspecified; F41.9 Anxiety disorder, unspecified; F17.200 Nicotine dependence, unspecified, uncomplicated; F12.90 Cannabis use, unspecified, uncomplicated; F15.90 Other stimulant use, unspecified, uncomplicated; Z79.899 Other long term (current) drug therapy; Z90.49 Acquired absence of other specified parts of digestive tract
CPT/HCPCS: 99282

== ENCOUNTER 2023-07-09 08:34 | Emergency (ER) | payer OTHER ==
--- NOTE | 2023-07-09 08:59 | ED ---
General Adult HPI - General Chief complaint: Upper Respiratory Infection Stated complaint: covid symptoms Time Seen by Provider: 07/09/23 08:42 Source: patient, RN notes reviewed Mode of arrival: ambulatory Limitations: no limitations - History of Present Illness Initial comments: 32-year-old female with no significant past medical history presents the emergency department with chief complaint of upper respiratory infection. Patient reports cough, congestion, headache, generalized body for last 2 days. She does report having a recent Covid positive contact. She denies any shortness of breath, chest pain, palpitations, abdominal pain, nausea, vomiting. She is up-to-date on vaccines. - Related Data Home Medications Medication Instructions Recorded Confirmed Buspar(Unknown Dose) 1 tab PO DAILY PRN 10/15/22 10/17/22 Previous Rx's Medication Instructions Recorded Metoprolol Tartrate [Lopressor] 25 mg PO BID 30 Days #60 tab 10/20/22 hydroCHLOROthiazide [Hydrodiuril] 25 mg PO DAILY 30 Days #30 tab 10/20/22 Amoxic-Pot Clav 875-125Mg 1 tab PO Q12HR 1 Days #2 tab 05/06/23 [Augmentin 875-125] Cetirizine HCl/Pseudoephedrine 1 tab PO Q12H 10 Days #20 tab 05/06/23 [Zyrtec-D ER 5 mg-120 mg Tablet] Oxymetazoline 0.05% Nasl [place] 2 spray EA NOSTRIL BID 5 Days #15 05/06/23 [Afrin 0.05% Nasal [place]] ml Allergies Allergy/AdvReac Type Severity Reaction Status Date / Time No Known Allergies Allergy Verified 07/09/23 08:40 Review of Systems ROS Statement: Those systems with pertinent positive or pertinent negative responses have been documented in the HPI. ROS Other: All systems not noted in ROS Statement are negative. Past Medical History Past Medical History: Asthma, Hypertension Additional Past Medical History / Comment(s): pancreatitis. pyloric stenosis, migraines History of Any Multi-Drug Resistant Organisms: MRSA Date of last positivie culture/infection: 2011 MDRO Source:: lt upper thigh area Past Surgical History: Cholecystectomy, Orthopedic Surgery Additional Past Surgical History / Comment(s): lt finger tendon repair Past Anesthesia/Blood Transfusion Reactions: No Reported Reaction Past Psychological History: Anxiety, Depression Smoking Status: Vaper Past Alcohol Use History: None Reported Past Drug Use History: Marijuana, Methamphetamine - Past Family History Mother Family Medical History: Hypertension General Exam - General Exam Comments Initial Comments: General: Alert, in no acute distress Head: atraumatic normocephalic. Eyes PERRL, EOMI intact, mucous membranes moist Respiratory: Lungs clear to auscultation bilaterally Cardiovascular: Heart rate regular rate and rhythm Abdominal: Soft without guarding or rebound Extremities: Normal inspection with full range of motion and normal capillary refill Neuroogic: alert and oriented 3, CN II-XII intact, able to ambulate with steady gait Skin: warm dry and intact with normal color Limitations: no limitations Course Vital Signs 07/09/23 07/09/23 08:37 10:51 Temperature 98 F 98.3 F Pulse Rate 82 89 Respiratory 20 18 Rate Blood Pressure 119/88 124/78 O2 Sat by Pulse 97 96 Oximetry Medical Decision Making - Medical Decision Making Was pt. sent in by a medical professional or institution (, PA, ELECTRIC REPAIR SUPERVISOR, urgent care, hospital, or prison...) When possible be specific @ -[No] Did you speak to anyone other than the patient for history (EMS, parent, family, police, friend...)? What history was obtained from this source @ -[No] Did you review nursing and triage notes (agree or disagree)? Why? @ -[I reviewed and agree with nursing and triage notes] Were old charts reviewed (outside hosp., previous admission, EMS record, old EKG, old radiological studies, urgent care reports/EKG's, prison records)? Report findings @ -[No old charts were reviewed] Differential Diagnosis (chest pain, altered mental status, abdominal pain women, abdominal pain men, vaginal bleeding, weakness, fever, dyspnea, syncope, headache, dizziness, GI bleed, back pain, seizure, CVA, palpatations, mental health, musculoskeletal)? @ -[not applicable] EKG interpreted by me (3pts min.). @ -[As above] X-rays interpreted by me (1pt min.). @ -[None done] CT interpreted by me (1pt min.). @ -[None done] U/S interpreted by me (1pt. min.). @ -[None done] What testing was considered but not performed or refused? (CT, X-rays, U/S, labs)? Why? @ -[None] What meds were considered but not given or refused? Why? @ -[None] Did you discuss the management of the patient with other professionals (professionals i.e. , ORTIZ, ELECTRIC REPAIR SUPERVISOR, lab, RT, psych nurse, social service worker, french weaver, teacher, facilities officer, case resolution specialist)? Give summary @ -[No] Was smoking cessation discussed for >3mins.? @ -[No] Was critical care preformed (if so, how long)? @ -[No] Were there social determinants of health that impacted care today? How? (Homeles sness, low income, unemployed, alcoholism, drug addiction, transportation, low edu. Level, literacy, decrease access to med. care, [facility], rehab)? @ -[No] Was there de-escalation of care discussed even if they declined (Discuss DNR or withdrawal of care, Hospice)? DNR status @ -[No] What co-morbidities impacted this encounter? (DM, HTN, Smoking, COPD, CAD, Cancer, CVA, ARF, Chemo, Hep., AIDS, mental health diagnosis, sleep apnea, morbid obesity)? @ -[None] Was patient admitted / discharged? Hospital course, mention meds given and route, prescriptions, significant lab abnormalities, going to OR and other pertinent info. @ -Discharged. This is a 32-year-old female presents the emergency department with URI symptoms. Patient had a thorough history and physical exam performed while in the ED. Physical exam reveals vital signs are stable. Heart rate regular rate and rhythm, lungs clear to auscultation bilaterally abdomen soft and nontender. Patient vital signs which revealed Covid positive. I discussed the results in detail with the patient verbalized understanding all questions were addressed. She is provided a work note. Return precautions discussed. Patient discharged in stable condition. Case discussed with Dr. davila [facility] who presents with plan of care Undiagnosed new problem with uncertain prognosis? @ -[No] Drug Therapy requiring intensive monitoring for toxicity (Heparin, Nitro, Insulin, Cardizem)? @ -[No] Were any procedures done? @ -[No] Diagnosis/symptom? @ -COVID - Cough Acute, or Chronic, or Acute on Chronic? @ -Acute Uncomplicated (without systemic symptoms) or Complicated (systemic symptoms)? @ -Uncomplicated Side effects of treatment? @ -[No] Exacerbation, Progression, or Severe Exacerbation? @ -[No] Poses a threat to life or bodily function? How? (Chest pain, [place], [place], pneumonia, PE, COPD, DKA, ARF, appy, cholecystitis, CVA, Diverticulitis, Homicidal, Suicidal, threat to staff... and all critical care pts) @ -Low likelihood - Lab Data Lab Results 07/09/23 Range/Units 08:59 Influenza Type A (PCR) Not Detected (Not Detectd) Influenza Type B (PCR) Not Detected (Not Detectd) RSV (PCR) Not Detected (Not Detectd) SARS-CoV-2 (PCR) Detected A (Not Detectd) Disposition Clinical Impression: COVID-19 Disposition: HOME SELF-CARE Condition: Stable Instructions (If sedation given, give patient instructions): Coronavirus Disease 2019 (COVID-19), Upper Respiratory Infection (ED), COVID-19 (Coronavirus Disease 2019) (ED) Additional Instructions: Please take Tylenol or Motrin at home for fever control Please return to the nearest emergency department if worsening cough Is patient prescribed a controlled substance at d/c from ED?: No Referrals: Rickey Mccarthy MD [Primary Care Provider] - 1-2 days Time of Disposition: 10:33
[2023-07-09 10:55] VITALS: BP 124/78; PULSE 89; RESP 18; TEMP 98.3
== END 2023-07-09 10:52 | disposition home or self-care (01) ==
LOC: EC 08:34 → SUPCPDRO 08:34 → EC 10:52
DX: U07.1 COVID-19 (principal); J45.909 Unspecified asthma, uncomplicated; I10 Essential (primary) hypertension; F41.9 Anxiety disorder, unspecified; F32.A Depression, unspecified; F17.290 Nicotine dependence, other tobacco product, uncomplicated; F12.90 Cannabis use, unspecified, uncomplicated; F15.90 Other stimulant use, unspecified, uncomplicated; Z79.899 Other long term (current) drug therapy
CPT/HCPCS: 87636; 99283

== ENCOUNTER 2023-07-12 08:40 | Emergency (ER) | payer OTHER ==
[2023-07-12] MEDS ORDERED: SODIUM CHLORIDE 0.9% 2,000 ML IV STA (08:55)
[2023-07-12] MEDS ORDERED: ONDANSETRON 4 MG/2 ML VIAL IVP STA (08:55)
[2023-07-12] MEDS ORDERED: DICYCLOMINE 10 MG/ML 2 ML AMP IM STA (08:56)
[2023-07-12] MEDS ORDERED: FAMOTIDINE 20 MG/2 ML VIAL IV STA (08:56)
--- NOTE | 2023-07-12 08:58 | ED ---
General Adult HPI - General Chief complaint: Nausea/Vomiting/Diarrhea Stated complaint: Covid +/ Vomiting Time Seen by Provider: 07/12/23 08:45 Source: patient, RN notes reviewed Mode of arrival: ambulatory Limitations: no limitations - History of Present Illness Initial comments: Patient is a pleasant 32-year-old female presenting to the emergency department with concerns for nausea and vomiting. Onset of symptoms was yesterday. Patient is vomited multiple times. Patient is also had some diarrhea. No abdominal pain. Patient tested positive for COVID-19 infection 3 days ago. Patient did have symptoms started 3 days prior to that. No upper respiratory symptoms at this time. No abdominal pain. - Related Data Home Medications Medication Instructions Recorded Confirmed Buspar(Unknown Dose) 1 tab PO DAILY PRN 10/15/22 10/17/22 Previous Rx's Medication Instructions Recorded Metoprolol Tartrate [Lopressor] 25 mg PO BID 30 Days #60 tab 10/20/22 hydroCHLOROthiazide [Hydrodiuril] 25 mg PO DAILY 30 Days #30 tab 10/20/22 Amoxic-Pot Clav 875-125Mg 1 tab PO Q12HR 1 Days #2 tab 05/06/23 [Augmentin 875-125] Cetirizine HCl/Pseudoephedrine 1 tab PO Q12H 10 Days #20 tab 05/06/23 [Zyrtec-D ER 5 mg-120 mg Tablet] Oxymetazoline 0.05% Nasl [place] 2 spray EA NOSTRIL BID 5 Days #15 05/06/23 [Afrin 0.05% Nasal [place]] ml Ondansetron Odt [Zofran Odt] 4 mg PO Q8HR PRN #10 tab 07/12/23 Allergies Allergy/AdvReac Type Severity Reaction Status Date / Time No Known Allergies Allergy Verified 07/12/23 08:45 Review of Systems ROS Statement: Those systems with pertinent positive or pertinent negative responses have been documented in the HPI. ROS Other: All systems not noted in ROS Statement are negative. Constitutional: Reports: chills Eyes: Denies: eye pain ENT: Denies: ear pain Respiratory: Reports: as per HPI Cardiovascular: Denies: chest pain Endocrine: Denies: fatigue Gastrointestinal: Reports: as per HPI, nausea, vomiting, diarrhea. Denies: abdominal pain Genitourinary: Denies: urgency, dysuria, hematuria Musculoskeletal: Denies: back pain Past Medical History Past Medical History: Asthma, Hypertension Additional Past Medical History / Comment(s): pancreatitis. pyloric stenosis, migraines History of Any Multi-Drug Resistant Organisms: MRSA Date of last positivie culture/infection: 2011 MDRO Source:: lt upper thigh area Past Surgical History: Cholecystectomy, Orthopedic Surgery Additional Past Surgical History / Comment(s): lt finger tendon repair Past Anesthesia/Blood Transfusion Reactions: No Reported Reaction Past Psychological History: Anxiety, Depression Smoking Status: Vaper Past Alcohol Use History: None Reported Past Drug Use History: Marijuana, Methamphetamine - Past Family History Mother Family Medical History: Hypertension General Exam Limitations: no limitations General appearance: alert, in no apparent distress Head exam: Present: normocephalic Eye exam: Present: normal appearance ENT exam: Present: normal oropharynx Neck exam: Present: normal inspection Respiratory exam: Present: normal lung sounds bilaterally Cardiovascular Exam: Present: regular rate, normal rhythm GI/Abdominal exam: Present: soft. Absent: distended, tenderness, guarding, rebound, rigid Extremities exam: Present: normal inspection Neurological exam: Present: alert Psychiatric exam: Present: normal affect, normal mood Skin exam: Present: normal color Course Vital Signs 07/12/23 08:42 Temperature 99 F Pulse Rate 97 Respiratory 20 Rate Blood Pressure 124/91 O2 Sat by Pulse 97 Oximetry Medical Decision Making - Medical Decision Making Was pt. sent in by a medical professional or institution (Dr. PA, RETAIL AGENT, urgent care, hospital, or penitentiary...) When possible be specific @ -No Did you speak to anyone other than the patient for history (EMS, parent, family, police, friend...)? What history was obtained from this source @ -No Did you review nursing and triage notes (agree or disagree)? Why? @ -I reviewed and agree with nursing and triage notes Were old charts reviewed (outside hosp., previous admission, EMS record, old EKG, old radiological studies, urgent care reports/EKG's, penitentiary records)? Report findings @ -Labs from previous visit reviewed Differential Diagnosis (chest pain, altered mental status, abdominal pain women, abdominal pain men, vaginal bleeding, weakness, fever, dyspnea, syncope, headache, dizziness, GI bleed, back pain, seizure, CVA, palpatations, mental health, musculoskeletal)? @ -Differential Abdominal Pain Women: Appendicitis, Cholecystitis, diverticulosis, ischemic bowel, pancreatitis, hepatitis, UTI, gastroenteritis, AAA, incarcerated hernia, bowel obstruction, constipation, inflammatory bowel, hepatitis, peptic ulcer disease, splenic i nfarction, perforated viscus, vulvitis, ovarian torsion, PID, kidney stone, placenta abruption, this is not meant to be an all-inclusive list EKG interpreted by me (3pts min.). @ -As above X-rays interpreted by me (1pt min.). @ -None done CT interpreted by me (1pt min.). @ -None done U/S interpreted by me (1pt. min.). @ -None done What testing was considered but not performed or refused? (CT, X-rays, U/S, labs)? Why? @ -None What meds were considered but not given or refused? Why? @ -None Did you discuss the management of the patient with other professionals (professionals i.e. , PA, RETAIL AGENT, lab, RT, psych nurse, clinical social work therapist, arc welding machine operator, teacher, space officer, shoe caser)? Give summary @ -No Was smoking cessation discussed for >3mins.? @ -No Was critical care preformed (if so, how long)? @ -No Were there social determinants of health that impacted care today? How? (Homelessness, low income, unemployed, alcoholism, drug addiction, transportation, low edu. Level, literacy, decrease access to med. care, [facility], rehab)? @ -No Was there de-escalation of care discussed even if they declined (Discuss DNR or withdrawal of care, Hospice)? DNR status @ -No What co-morbidities impacted this encounter? (DM, HTN, Smoking, COPD, CAD, Cancer, CVA, ARF, Chemo, Hep., AIDS, mental health diagnosis, sleep apnea, morbid obesity)? @ -None Was patient admitted / discharged? Hospital course, mention meds given and route, prescriptions, significant lab abnormalities, going to OR and other pertinent info. @ -Patient reevaluated and is feeling better. Patient is updated on results and plan. Patient is comfortable with discharge home. Antibiotics will be sent to pharmacy. Patient recommended follow-up. Undiagnosed new problem with uncertain prognosis? @ -No Drug Therapy requiring intensive monitoring for toxicity (Heparin, Nitro, Insulin, Cardizem)? @ -No Were any procedures done? @ -No Diagnosis/symptom? @ -Vomiting, COVID-19 Acute, or Chronic, or Acute on Chronic? @ -Acute, acute Uncomplicated (without systemic symptoms) or Complicated (systemic symptoms)? @ -default Side effects of treatment? @ -No Exacerbation, Progression, or Severe Exacerbation? @ -No Poses a threat to life or bodily function? How? (Chest pain, [place], [place], pneumonia, PE, COPD, DKA, ARF, appy, cholecystitis, CVA, Diverticulitis, Homicidal, Suicidal, threat to staff... and all critical care pts) @ -No - Lab Data Result diagrams: 07/12/23 09:22 07/12/23 09:22 Lab Results 07/12/23 07/12/23 Range/Units 09: 09:22 WBC 5.5 (3.8-10.6) k/uL RBC 4.90 (3.80-5.40) m/uL Hgb 14.8 (11.4-16.0) gm/dL Hct 44.1 (34.0-46.0) % MCV 90.0 (80.0-100.0) fL MCH 30.3 (25.0-35.0) pg MCHC 33.7 (31.0-37.0) g/dL RDW 12.5 (11.5-15.5) % Plt Count 187 (150-450) k/uL MPV 8.8 Neutrophils % 75 % Lymphocytes % 18 % Monocytes % 4 % Eosinophils % 1 % Basophils % 0 % Neutrophils # 4.1 (1.3-7.7) k/uL Lymphocytes # 1.0 (1.0-4.8) k/uL Monocytes # 0.2 (0-1.0) k/uL Eosinophils # 0.1 (0-0.7) k/uL Basophils # 0.0 (0-0.2) k/uL Sodium 139 (137-145) mmol/L Potassium 3.8 (3.5-5.1) mmol/L Chloride 108 H (98-107) mmol/L Carbon Dioxide 19 L (22-30) mmol/L Anion Gap 12 mmol/L BUN 16 (7-17) mg/dL Creatinine 0.70 (0.52-1.04) mg/dL Est GFR (CKD-EPI)AfAm >90 (>60 ml/min/1.73 sqM) Est GFR (CKD-EPI)NonAf >90 (>60 ml/min/1.73 sqM) Glucose 96 (74-99) mg/dL Calcium 8.8 (8.4-10.2) mg/dL Total Bilirubin 0.7 (0.2-1.3) mg/dL AST 33 (14-36) U/L ALT 32 (4-34) U/L Alkaline Phosphatase 42 (38-126) U/L Total Protein 6.8 (6.3-8.2) g/dL Albumin 4.0 (3.5-5.0) g/dL HCG, Quant <2.4 mIU/mL Disposition Clinical Impression: COVID-19, Vomiting Disposition: HOME SELF-CARE Condition: Stable Instructions (If sedation given, give patient instructions): Acute Nausea and Vomiting (ED) Additional Instructions: Prescription sent to pharmacy. Please do follow-up with her primary care physician in the next couple days for recheck. Return for not tolerating fluids, uncontrolled fever, pain, worsening or changing symptoms or any other concerns. Prescriptions: Ondansetron Odt [Zofran Odt] 4 mg PO Q8HR PRN #10 tab PRN Reason: Nausea Is patient prescribed a controlled substance at d/c from ED?: No Referrals: Rickey Mccarthy MD [Primary Care Provider] - 1-2 days Time of Disposition: 10:56
[2023-07-12] MEDS ORDERED: ACETAMINOPHEN IV (For NPO) 1,000 MG in EMPTY BAG 1 BAG IVPB ONE (09:15)
[2023-07-12 09:52] LABS: Basophils % (A) 0 %; Eosinophils # (A) 0.1 k/uL (0-0.7); Eosinophils % (A) 1 %; HCT 44.1 % (34.0-46.0); HGB 14.8 gm/dL (11.4-16.0); Lymphocytes % (A) 18 %; MCH 30.3 pg (25.0-35.0); MCHC 33.7 g/dL (31.0-37.0); Mean Platelet Volume 8.8; Monocytes # (A) 0.2 k/uL (0-1.0); Monocytes % (A) 4 %; Neutrophils # (A) 4.1 k/uL (1.3-7.7); Neutrophils % (A) 75 %; Platelet Count 187 k/uL (150-450); RDW 12.5 % (11.5-15.5); WBC 5.5 k/uL (3.8-10.6)
[2023-07-12 10:05] LABS: African American GFR (CKD) >90 (>60 ml/min/1.73 sqM); Alkaline Phosphatase 42 U/L (38-126); Anion Gap 12 mmol/L; Blood Urea Nitrogen 16 mg/dL (7-17); Calcium 8.8 mg/dL (8.4-10.2); Carbon Dioxide 19 mmol/L (22-30); Chloride 108 mmol/L (98-107); Glucose 96 mg/dL (74-99); Non-African American GFR(CKD) >90 (>60 ml/min/1.73 sqM); Sodium 139 mmol/L (137-145); Total Bilirubin 0.7 mg/dL (0.2-1.3); Total Protein 6.8 g/dL (6.3-8.2)
[2023-07-12 10:18] LABS: ALT 32 U/L (4-34); AST 33 U/L (14-36); Potassium 3.8 mmol/L (3.5-5.1)
[2023-07-12 10:21] LABS: HCG,Quantitative Serum <2.4 mIU/mL
[2023-07-12 12:08] VITALS: BP 117/73; PULSE 65; RESP 18; TEMP 98.1
== END 2023-07-12 12:00 | disposition home or self-care (01) ==
LOC: EC 08:40
DX: U07.1 COVID-19 (principal); R11.2 Nausea with vomiting, unspecified; I10 Essential (primary) hypertension; J45.909 Unspecified asthma, uncomplicated; F41.9 Anxiety disorder, unspecified; F32.A Depression, unspecified; F17.290 Nicotine dependence, other tobacco product, uncomplicated; F12.90 Cannabis use, unspecified, uncomplicated; F15.90 Other stimulant use, unspecified, uncomplicated; Z79.899 Other long term (current) drug therapy
CPT/HCPCS: 36415; 80053; 85025; 84702; 99284; 96374; 96375 ×2; 96361 ×2; 96372; J0500; J2405; J3490; J0131

== ENCOUNTER 2023-10-07 05:00 | Observation (INO) | payer OTHER ==
[2023-10-07] MEDS: ONDANSETRON 4 MG/2 ML VIAL IVP STA (05:36)
[2023-10-07] MEDS: MORPHINE SULFATE 4 MG/ML SYRINGE IVP STA (05:36)
[2023-10-07] MEDS: SODIUM CHLORIDE 0.9% 1,000 ML IV STA ×2 (05:37→06:40)
[2023-10-07] MEDS: PANTOPRAZOLE 40 MG/10 ML VIAL IVP STA (05:37)
--- NOTE | 2023-10-07 05:39 | ED ---
General Adult HPI - General Source: patient, RN notes reviewed, old records reviewed Mode of arrival: ambulatory Limitations: no limitations <Yobany Monaco - Last Filed: 10/07/23 07:03> <Dylan Hutchins - Last Filed: 10/07/23 09:05> - General Chief complaint: Abdominal Pain Stated complaint: abd pain N/V Time Seen by Provider: 10/07/23 05:25 - History of Present Illness Initial comments: Is a 33-year-old female who presents emergency department complaining of abdominal pain. States it reminds her of pancreatitis. Has a history of prior alcohol abuse. Recently had an alcoholic beverage multiple days ago. However symptoms started overnight this evening. States she woke up with epigastric abdominal discomfort. Has a history of a cholecystectomy. Has had multiple episodes of nonbilious nonbloody emesis. Denies any chest pain or shortness of breath. Denies any diarrhea or constipation. No other acute complaints at this time. Denies any vaginal discharge or bleeding. Presents for further ev aluation. (Yobany Monaco) - Related Data Home Medications Medication Instructions Recorded Confirmed Buspar(Unknown Dose) 1 tab PO DAILY PRN 10/15/22 10/17/22 Previous Rx's Medication Instructions Recorded Metoprolol Tartrate [Lopressor] 25 mg PO BID 30 Days #60 tab 10/20/22 hydroCHLOROthiazide [Hydrodiuril] 25 mg PO DAILY 30 Days #30 tab 10/20/22 Amoxic-Pot Clav 875-125Mg 1 tab PO Q12HR 1 Days #2 tab 05/06/23 [Augmentin 875-125] Cetirizine HCl/Pseudoephedrine 1 tab PO Q12H 10 Days #20 tab 05/06/23 [Zyrtec-D ER 5 mg-120 mg Tablet] Oxymetazoline 0.05% Nasl [place] 2 spray EA NOSTRIL BID 5 Days #15 05/06/23 [Afrin 0.05% Nasal [place]] ml Ondansetron Odt [Zofran Odt] 4 mg PO Q8HR PRN #10 tab 07/12/23 Allergies Allergy/AdvReac Type Severity Reaction Status Date / Time No Known Allergies Allergy Verified 10/07/23 05:04 Review of Systems ROS Other: All systems not noted in ROS Statement are negative. <Yobany Monaco - Last Filed: 10/07/23 07:03> ROS Other: All systems not noted in ROS Statement are negative. <Dylan Hutchins - Last Filed: 10/07/23 09:05> ROS Statement: Those systems with pertinent positive or pertinent negative responses have been documented in the HPI. Review of Systems: CONST: Denies fever EYES: Denies blurry vision ENT: Denies nasal congestion C/V: Denies Chest pain RESP: Denies shortness of breath GI: Endorses abdominal pain : Denies dysuria SKIN: Denies rash. MSK: Denies joint pain. NEURO: Denies headache (Yobany Monaco) Past Medical History Past Medical History: Asthma, Hypertension Additional Past Medical History / Comment(s): pancreatitis. pyloric stenosis, migraines History of Any Multi-Drug Resistant Organisms: MRSA Date of last positivie culture/infection: 2011 MDRO Source:: lt upper thigh area Past Surgical History: Cholecystectomy, Orthopedic Surgery Additional Past Surgical History / Comment(s): lt finger tendon repair Past Anesthesia/Blood Transfusion Reactions: No Reported Reaction Past Psychological History: Anxiety, Depression Smoking Status: Vaper Past Alcohol Use History: None Reported Past Drug Use History: Marijuana, Methamphetamine - Past Family History Mother Family Medical History: Hypertension <Yobany Monaco - Last Filed: 10/07/23 07:03> General Exam Limitations: no limitations <Yobany Monaco - Last Filed: 10/07/23 07:03> - General Exam Comments Initial Comments: General: Appears in mild acute distress. HEAD: Normal with no signs of head trauma. EYES: PERRLA, EOMI, conjunctiva normal, no discharge. ENT: Hearing grossly intact, normal oropharynx. RESPIRATORY: Clear breath sounds bilaterally. No wheezes, rales, or rhonchi. C/V: Regular rate and rhythm. S1 and S2 auscultated, no edema, peripheral pulses 2+ and intact throughout ABD: Abdomen is soft, nondistended. Tender palpation epigastric region. No guarding. No rebound tenderness. No peritoneal signs. EXT: Normal range of motion, no obvious deformity SKIN: No rashes or lesions observed on exposed skin. NEURO: Alert and oriented x 4. (Yobany Monaco) Course Vital Signs 10/07/23 10/07/23 10/07/23 05:01 06:21 08:02 Temperature 97.8 F 98.7 F Pulse Rate 69 55 L 76 Respiratory 18 18 20 Rate Blood Pressure 102/66 90/50 103/63 O2 Sat by Pulse 96 100 98 Oximetry Medical Decision Making - Lab Data Result diagrams: 10/07/23 05:44 10/07/23 05:44 - EKG Data -: EKG Interpreted by Me <Yobany Monaco - Last Filed: 10/07/23 07:03> - Lab Data Result diagrams: 10/07/23 05:44 10/07/23 05:44 <Dylan Hutchins - Last Filed: 10/07/23 09:05> - Medical Decision Making Was pt. sent in by a medical professional or institution (, PA, VACUUM TRUCK DRIVER, urgent care, hospital, or [facility]cc...) When possible be specific @ -No Did you speak to anyone other than the patient for history (EMS, parent, family, police, friend...)? What history was obtained from this source @ -No Did you review nursing and triage notes (agree or disagree)? Why? @ -I reviewed and agree with nursing and triage notes Were old charts reviewed (outside hosp., previous admission, EMS record, old EKG, old radiological studies, urgent care reports/EKG's, [facility] records)? Report findings @ -Old charts reviewed Differential Diagnosis (chest pain, altered mental status, abdominal pain women, abdominal pain men, vaginal bleeding, weakness, fever, dyspnea, syncope, headache, dizziness, GI bleed, back pain, seizure, CVA, palpatations, mental health, musculoskeletal)? @ -Differential Abdominal Pain Women: Appendicitis, Cholecystitis, diverticulosis, ischemic bowel, pancreatitis, hepatitis, UTI, gastroenteritis, AAA, incarcerated hernia, bowel obstruction, constipation, inflammatory bowel, hepatitis, peptic ulcer disease, splenic infarction, perforated viscus, vulvitis, ovarian torsion, PID, kidney stone, placenta abruption, this is not meant to be an all-inclusive list EKG interpreted by me (3pts min.). @ -As above X-rays interpreted by me (1pt min.). @ -None done CT interpreted by me (1pt min.). @ -Pending U/S interpreted by me (1pt. min.). @ -None done What testing was considered but not performed or refused? (CT, X-rays, U/S, labs)? Why? @ -None What meds were considered but not given or refused? Why? @ -None Did you discuss the management of the patient with other professionals (professionals i.e. , PA, VACUUM TRUCK DRIVER, lab, RT, psych nurse, psychologist social, die maintenance, teacher, associate loan officer, case specialist)? Give summary @ -No Was smoking cessation discussed for >3mins.? @ -No Was critical care preformed (if so, how long)? @ -No Were there social determinants of health that impacted care today? How? (Homelessness, low income, unemployed, alcoholism, drug addiction, transportation, low edu. Level, literacy, decrease access to med. care, fdc, rehab)? @ -No Was there de-escalation of care discussed even if they declined (Discuss DNR or withdrawal of care, Hospice)? DNR status @ -No What co-morbidities impacted this encounter? (DM, HTN, Smoking, COPD, CAD, Cancer, CVA, ARF, Chemo, Hep., AIDS, mental health diagnosis, sleep apnea, morbid obesity)? @ -None Was patient admitted / discharged? Hospital course, mention meds given and route, prescriptions, significant lab abnormalities, going to OR and other pertinent info. @ -Based on the patient's presentation and physical exam, patient presents emergency department complaining of abdominal pain. We will obtain abdominal laboratory studies. Patient may require CT imaging but we will initially obtain labs. She was in agreement this plan. She will be symptomatically treated with IV fluids, Zofran, morphine. Vital signs are within acceptable limits. Screening EKG shows no signs of acute ischemia. Patient's laboratory studies remarkable for leukocytosis of 13. Patient is not . Urine study still pending. On reevaluation, patient is now complaining of lower chest pain. We will add on a troponin to her labs as well as his obtain a repeat EKG. Will attempt to treat with GI cocktail and now obtain a CT of the abdomen pelvis that she is still complaining of pain. She was in agreement this plan. At this time is the end my shift. Patient signed out to Dr. Hutchins pending results of imaging and labs. Undiagnosed new problem with uncertain prognosis? @ -No Drug Therapy requiring intensive monitoring for toxicity (Heparin, Nitro, Insulin, Cardizem)? @ -No Were any procedures done? @ -No (Yobany Monaco) Was patient admitted / discharged? Hospital course, mention meds given and route, prescriptions, significant lab abnormalities, going to OR and other pertinent info. @ -Patient's CAT scan came back with a distended fluid-filled appendix. I spoke with Dr. Jack Santiago believe that the appendix needed to come out and will be taking the patient to the OR patient was started on Zosyn Undiagnosed new problem with uncertain prognosis? @ -No Drug Therapy requiring intensive monitoring for toxicity (Heparin, Nitro, Insulin, Cardizem)? @ -No Were any procedures done? @ -No Diagnosis/symptom? @ -Acute appendicitis Acute, or Chronic, or Acute on Chronic? @ -Acute Uncomplicated (without systemic symptoms) or Complicated (systemic symptoms)? @ -Complicated Side effects of treatment? @ -No Exacerbation, Progression, or Severe Exacerbation? @ -No Poses a threat to life or bodily function? How? (Chest pain, [place], [place], pneumonia, PE, COPD, DKA, ARF, appy, cholecystitis, CVA, Diverticulitis, Homicidal, Suicidal, threat to staff... and all critical care pts) @ -Yes this could lead to sepsis and endorgan dysfunction (Dylan Hutchins) - Lab Data Lab Results 10/07/23 10/07/23 10/07/23 Range/Units 05:44 05:44 05:44 WBC 13.0 H (3.8-10.6) k/uL RBC 4.78 (3.80-5.40) m/uL Hgb 14.8 (11.4-16.0) gm/dL Hct 43.0 (34.0-46.0) % MCV 90.0 (80.0-100.0) fL MCH 31.0 (25.0-35.0) pg MCHC 34.4 (31.0-37.0) g/dL RDW 13.6 (11.5-15.5) % Plt Count 260 (150-450) k/uL MPV 8.9 Neutrophils % 80 % Lymphocytes % 13 % Monocytes % 5 % Eosinophils % 1 % Basophils % 0 % Neutrophils # 10.3 H (1.3-7.7) k/uL Lymphocytes # 1.7 (1.0-4.8) k/uL Monocytes # 0.6 (0-1.0) k/uL Eosinophils # 0.1 (0-0.7) k/uL Basophils # 0.0 (0-0.2) k/uL PT 10.3 (10.0-12.5) sec INR 0.9 (<1.2) APTT 22.7 (22.0-30.0) sec Sodium 136 L (137-145) mmol/L Potassium 3.7 (3.5-5.1) mmol/L Chloride 102 (98-107) mmol/L Carbon Dioxide 28 (22-30) mmol/L Anion Gap 6 mmol/L BUN 16 (7-17) mg/dL Creatinine 0.94 (0.52-1.04) mg/dL Est GFR (CKD-EPI)AfAm >90 (>60 ml/min/1.73 sqM) Est GFR (CKD-EPI)NonAf 79 (>60 ml/min/1.73 sqM) Glucose 151 H (74-99) mg/dL Plasma Lactic Acid [place] (0.7-2.0) mmol/L Calcium 9.5 (8.4-10.2) mg/dL Total Bilirubin 0.7 (0.2-1.3) mg/dL AST 36 (14-36) U/L ALT 31 (4-34) U/L Alkaline Phosphatase 53 (38-126) U/L Troponin I (0.000-0.034) ng/mL Total Protein 7.1 (6.3-8.2) g/dL Albumin 4.3 (3.5-5.0) g/dL Amylase 56 (30-110) U/L Lipase 103 (23-300) U/L HCG, Qual Not Detected Urine Color Urine Appearance (Clear) Urine pH (5.0-8.0) Ur Specific [place] (1.001-1.035) Urine Protein (Negative) Urine Glucose (UA) (Negative) Urine Ketones (Negative) Urine Blood (Negative) Urine Nitrite (Negative) Urine Bilirubin (Negative) Urine Urobilinogen (<2.0) mg/dL Ur Leukocyte Esterase (Negative) 10/07/23 10/07/23 10/07/23 Range/Units 05:44 06:15 08:02 WBC (3.8-10.6) k/uL RBC (3.80-5.40) m/uL Hgb (11.4-16.0) gm/dL Hct (34.0-46.0) % MCV (80.0-100.0) fL MCH (25.0-35.0) pg MCHC (31.0-37.0) g/dL RDW (11.5-15.5) % Plt Count (150-450) k/uL MPV Neutrophils % % Lymphocytes % % Monocytes % % Eosinophils % % Basophils % % Neutrophils # (1.3-7.7) k/uL Lymphocytes # (1.0-4.8) k/uL Monocytes # (0-1.0) k/uL Eosinophils # (0-0.7) k/uL Basophils # (0-0.2) k/uL PT (10.0-12.5) sec INR (<1.2) APTT (22.0-30.0) sec Sodium (137-145) mmol/L Potassium (3.5-5.1) mmol/L Chloride (98-107) mmol/L Carbon Dioxide (22-30) mmol/L Anion Gap mmol/L BUN (7-17) mg/dL Creatinine (0.52-1.04) mg/dL Est GFR (CKD-EPI)AfAm (>60 ml/min/1.73 sqM) Est GFR (CKD-EPI)NonAf (>60 ml/min/1.73 sqM) Glucose (74-99) mg/dL Plasma Lactic Acid [place] 1.3 (0.7-2.0) mmol/L Calcium (8.4-10.2) mg/dL Total Bilirubin (0.2-1.3) mg/dL AST (14-36) U/L ALT (4-34) U/L Alkaline Phosphatase (38-126) U/L Troponin I <0.012 (0.000-0.034) ng/mL Total Protein (6.3-8.2) g/dL Albumin (3.5-5.0) g/dL Amylase (30-110) U/L Lipase (23-300) U/L HCG, Qual Urine Color Colorless Urine Appearance Clear (Clear) Urine pH 6.5 (5.0-8.0) Ur Specific [place] 1.033 (1.001-1.035) Urine Protein Negative (Negative) Urine Glucose (UA) Negative (Negative) Urine Ketones Negative (Negative) Urine Blood Negative (Negative) Urine Nitrite Negative (Negative) Urine Bilirubin Negative (Negative) Urine Urobilinogen <2.0 (<2.0) mg/dL Ur Leukocyte Esterase Negative (Negative) - EKG Data EKG Comments: 12-lead Electrocardiogram Interpretation Note EKG was reviewed and interpreted by myself. 12-lead ECG performed at 0531 is interpreted by me as revealing sinus bradycardia at a rate of 52 beats per minute. [place] is normal. [place] interval is 138 ms, QRS duration is 106 ms. QTc is 463 ms.. There were no ST or T wave abnormalities to suggest myocardial ischemia or injury. R wave progression across the precordium was satisfactory. By my interpretation this EKG is non-diagnostic for acute ischemia. 12-lead Electrocardiogram Interpretation Note EKG was reviewed and interpreted by myself. 12-lead ECG performed at 0657 is interpreted by me as revealing bradycardia at a rate of 58 beats per minute. [place] is normal. [place] interval is 141 ms, QRS duration is 107 ms, QTc is 466 ms.. There were no ST or T wave abnormalities to suggest myocardial ischemia or injury. R wave progression across the precordium was satisfactory. By my interpretation this EKG is non-diagnostic for acute ischemia. (Yobany Monaco) Disposition <Yobany Monaco - Last Filed: 10/07/23 07:03> Time of Disposition: 09:05 <Dylan Hutchins - Last Filed: 10/07/23 09:05> Clinical Impression: Acute appendicitis Disposition: ADMITTED IP TO THIS [facility] Referrals: Rickey Mccarthy DO [Primary Care Provider] - 1-2 days
[2023-10-07 05:58] LABS: Basophils % (A) 0 %; Eosinophils # (A) 0.1 k/uL (0-0.7); Eosinophils % (A) 1 %; HGB 14.8 gm/dL (11.4-16.0); Lymphocytes # (A) 1.7 k/uL (1.0-4.8); Lymphocytes % (A) 13 %; MCHC 34.4 g/dL (31.0-37.0); Mean Platelet Volume 8.9; Monocytes # (A) 0.6 k/uL (0-1.0); Monocytes % (A) 5 %; Neutrophils # (A) 10.3 k/uL (1.3-7.7); Neutrophils % (A) 80 %; Platelet Count 260 k/uL (150-450); RBC 4.78 m/uL (3.80-5.40); RDW 13.6 % (11.5-15.5)
[2023-10-07 06:15] LABS: INR 0.9 (<1.2); Partial Thromboplastin Time 22.7 sec (22.0-30.0); Prothrombin Time 10.3 sec (10.0-12.5)
[2023-10-07 06:16] LABS: ALT 31 U/L (4-34); AST 36 U/L (14-36); African American GFR (CKD) >90 (>60 ml/min/1.73 sqM); Albumin 4.3 g/dL (3.5-5.0); Alkaline Phosphatase 53 U/L (38-126); Amylase 56 U/L (30-110); Anion Gap 6 mmol/L; Blood Urea Nitrogen 16 mg/dL (7-17); Calcium 9.5 mg/dL (8.4-10.2); Carbon Dioxide 28 mmol/L (22-30); Chloride 102 mmol/L (98-107); Glucose 151 mg/dL (74-99); Lipase 103 U/L (23-300); Non-African American GFR(CKD) 79 (>60 ml/min/1.73 sqM); Potassium 3.7 mmol/L (3.5-5.1); Sodium 136 mmol/L (137-145); Total Bilirubin 0.7 mg/dL (0.2-1.3); Total Protein 7.1 g/dL (6.3-8.2)
[2023-10-07 06:20] LABS: HCG,Qualitative Serum Not Detected
[2023-10-07] MEDS: MAG HYDROX/AL HYDROX/SIMETH 30 ML, HYOSCYAMINE ELIXIR 10 ML, LIDOCAINE VISCOUS 2% 10 ML PO STA (06:40)
--- NOTE | 2023-10-07 07:57 | CT ---
EXAMINATION TYPE: CT abdomen pelvis w con DATE OF EXAM: 10/07/2023 COMPARISON: Correlation abdominal ultrasound 08/13/2017 HISTORY: 33-year-old female Abdominal pain, acute, non localized. History of pancreatitis TECHNIQUE: Contiguous axial scanning of the abdomen and pelvis following administration of 100 ml Iso mandy 300 IV contrast. Delayed images through the kidneys and coronal/sagittal reconstructions perform ed. CT DLP: 1473 mGycm Automated exposure control for dose reduction was used. FINDINGS: LUNG BASES: Heart normal size without pericardial effusion. Tiny hiatal hernia. Some strandy atelecta sis. No pleural effusion. LIVER/GB: No significant abnormality is appreciated. Status post cholecystectomy. PANCREAS: No significant abnormality is seen. SPLEEN: Thinly peripherally calcified large cyst anterior spleen measuring 8.6 cm versus 7.9 cm on 2016 ultrasound. ADRENALS: No significant abnormality is seen. KIDNEYS: 4 mm nonobstructive right renal calculus. There is a small 8 mm benign cortical cyst posteri or left kidney. Symmetric uptake and excretion of contrast from both kidneys. Retroaortic left renal vein. BOWEL: Some scattered prominent fluid-filled small bowel loops especially in the right lower quadrant . Fluid extends into and mildly distends the appendix at 8 mm in caliber. No jeramy periappendiceal fa t stranding at this time. Some mucosal hyperemia difficult to exclude. Mild overall stool burden. No pericolonic inflammatory change. LYMPH NODES: No suspicious greater than 1 cm lymph node is identified. OTHER: No significant abnormality is identified. PELVIS: The right tubal ligation clip is displaced superiorly into the left lower quadrant. Left tuba l ligation clip in place. Uterus is anteverted but myometrium is diffusely heterogeneous in appearan ce. There are also is heterogeneous and somewhat prominent appearance to the cervix. There is also fl uid along the uterine cavity. A dominant follicle in either ovary measuring 3.1 cm on the right and 2 .3 cm on the left. No abnormal fluid collection in the pelvis or pelvic lymph adenopathy. Bones: Mild spondylotic change in the lumbar spine. Mild degenerative changes at the hips. BONES: No significant abnormality is identified. IMPRESSION: 1. The appendix is fluid distended and mildly thickened at 8 mm. However, it does not show any jeramy surrounding inflammation at this time. Correlate for the possibility of potential early acute appendi citis. Clinical monitoring may be helpful. 2. Some clustered prominent fluid-filled small bowel loops in the right lower quadrant could represen t a regional ileus or enteritis. 3. 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 Measuring 7.9 cm back on the ultrasound of 2017 . 4. Very heterogeneous uterine myometrium. Findings could reflect physiologic changes to the uterus or underlying adenomyosis. There also appears to be fluid within the uterine cavity. Query any active m enstruation. Follow-up outpatient pelvic ultrasound if clinically indicated. The cervix also has a bu lky appearance. Correlate with findings on routine Pap smear. 5. Note that the patient's right tubal ligation clip is displaced and has migrated to the left lower quadrant.
[2023-10-07] MEDS: MAGNESIUM SULFATE-D5W PMX 1 GM in DEXTROSE/WATER 1 100ML.BAG IVPB ONE (08:01)
[2023-10-07 08:36] LABS: Appearance,Urine Clear (Clear); Bilirubin,Urine Negative (Negative); Blood,Urine Negative (Negative); Color,Urine Colorless; Glucose,Urine (UA) Negative (Negative); Ketones,Urine Negative (Negative); Leukocyte Esterase,Urine Negative (Negative); Nitrite,Urine Negative (Negative); PH, Urine 6.5 (5.0-8.0); Protein,Urine Negative (Negative); Specific Gravity,Urine 1.033 (1.001-1.035); Urobilinogen,Urine <2.0 mg/dL (<2.0)
[2023-10-07] MEDS: PIPERACILLIN-TAZOBACTAM 3.375 GM in SODIUM CHLORIDE 0.9% 100 ML IVPB STA (09:35)
[2023-10-07] MEDS: SODIUM CHLORIDE 0.9% 1,000 ML IV ONE (09:35)
[2023-10-07] MEDS ORDERED: ONDANSETRON 4 MG/2 ML VIAL IVP PRN (12:40)
--- NOTE | 2023-10-07 12:40 | P.GSHP ---
History of Present Illness H&P Date: 10/07/23 CHIEF COMPLAINT: abdominal pain HISTORY OF PRESENT ILLNESS: This is a 33 year old female who presents to the ER with complaints of abdominal pain that started at 3AM this morning. Patient reports pain initially started just above the bellybutton and has moved down to the right lower quadrant. She was having nausea and vomiting also was experiencing chills and sweats. She initially thought it was a flareup of her pancreatitis. She did have 1 alcoholic beverage the night before. She had a CT abdomen and pelvis reported appendix is fluid distended and mildly thickened. Correlate for possibility of early acute appendicitis. Patient's white count is elevated. Past surgical history includes cholecystectomy and repair of pyloric stenosis. PAST MEDICAL HISTORY: SVT asthma, hypertension, pancreatitis, pyloric stenosis PAST SURGICAL HISTORY: See below and uterine ablation MEDICATIONS: See below ALLERGIES: See below SOCIAL HISTORY: No illicit drug use. REVIEW OF SYSTEMS: CONSTITUTIONAL: Denies fever or chills. HEENT: Denies blurred vision, vision changes, or eye pain. Denies hemoptysis CARDIOVASCULAR: Denies chest pain or pressure. RESPIRATORY: No shortness of breath. GASTROINTESTINAL: See HPI for pertinent findings HEMATOLOGIC: Denies bleeding disorders. GENITOURINARY: Denies any blood in urine or increased urinary frequency. SKIN: Denies pruitis. Denies rash. PHYSICAL EXAM: VITAL SIGNS: Reviewed GENERAL: Well-developed in no acute distress. HEENT: No sclera icterus. Extraocular movements grossly intact. Moist buccal mucosa. Head is atraumatic, normocephalic. No nasal drainage. ABDOMEN: Soft. Nondistended. Tenderness with palpation to right lower quadrant. NEUROLOGIC: Alert and oriented. Cranial nerves II through XII grossly intact. LABORATORY DATA: WBC 13 Hgb 14.8 platelets 260 Sodium is 136 potassium 3.7 creatinine 0.94 Lactic acid 1.3 LFTs normal Urine hCG not detected Urinalysis negative for infection IMAGING: CT scan abdomen pelvis reports appendix fluid distended and mildly thickened at 8 mm. Does not show any jeramy surrounding inflammation at this time. Correlate for possibility of potential early acute appendicitis. Some clustered prominent fluid-filled small bowel loops in the right lower quadrant could represent regio nal ileus or enteritis. Suspect chronic 8.6 cm pseudocyst of the spleen. Measuring 7.9 cm back on ultrasound 2017. Heterogenous uterine myometrium. Bulky cervix in appearance ASSESSMENT: 1. Acute appendicitis PLAN: -Patient scheduled for laparoscopic appendectomy today with Dr. Santiago -Keep patient n.p.o. -Continue IV antibiotics -Continue IV fluids -Continue pain management Physician Tool Grinder Operator note has been reviewed by physician. Signing provider agrees with the documented findings, assessment, and plan of care. I have personally seen and examined the patient, reviewed the SERVICES ADVISOR /PAs history, exam and MDM and agree with the assessment and plan as written. Based on total visit time, I have performed more than 50% of the visit. As above: Patient with right lower quadrant pain that began around 3 AM. CAT scan reviewed and shows a dilated appendix. There may be some mild inflammatory changes around it. Remains tender right lower quadrant. Rates her pain at a 7 out of 10 despite analgesics. Options discussed. Will proceed with laparoscopic, possible open appendectomy at this time. Continue antibiotics. Risks of bleeding, infection, scarring, hernia, conversion to an open procedure, abscess, leak all discussed. She understands and wishes to proceed. Past Medical History Past Medical History: Asthma, Hypertension Additional Past Medical History / Comment(s): pancreatitis. pyloric stenosis, migraines History of Any Multi-Drug Resistant Organisms: MRSA Date of last positivie culture/infection: 2011 MDRO Source:: lt upper thigh area Past Surgical History: Cholecystectomy, Orthopedic Surgery Additional Past Surgical History / Comment(s): lt finger tendon repair Past Anesthesia/Blood Transfusion Reactions: No Reported Reaction Past Psychological History: Anxiety, Depression Smoking Status: Vaper Past Alcohol Use History: None Reported Past Drug Use History: Marijuana, Methamphetamine - Past Family History Mother Family Medical History: Hypertension Medications and Allergies Home Medications Medication Instructions Recorded Confirmed Type Albuterol Sulfate [Albuterol 2 puff PO RT-Q4H PRN 10/07/23 10/07/23 History Sulfate Hfa] Escitalopram [Lexapro] 20 mg PO DAILY 10/07/23 10/07/23 History Metoprolol Succinate (ER) [Toprol 25 mg PO DAILY 10/07/23 10/07/23 History Xl] Topiramate [Topamax] 50 mg PO DAILY 10/07/23 10/07/23 History hydroCHLOROthiazide [Hydrodiuril] 25 mg PO DAILY 10/07/23 10/07/23 History Allergies Allergy/AdvReac Type Severity Reaction Status Date / Time No Known Allergies Allergy Verified 10/07/23 09:46 Surgical - Exam Vital Signs Temp Pulse Resp BP Pulse Ox 97.8 F 69 18 102/66 96 10/07/23 05:01 10/07/23 05:01 10/07/23 05:01 10/07/23 05:01 10/07/23 05:01 Results - Labs 10/07/23 05:44 10/07/23 05:44 Abnormal Lab Results - Last 24 Hours (Table) 10/07/23 10/07/23 Range/Units 05:44 05:44 WBC 13.0 H (3.8-10.6) k/uL Neutrophils # 10.3 H (1.3-7.7) k/uL Sodium 136 L (137-145) mmol/L Glucose 151 H (74-99) mg/dL Diabetes panel 10/07/23 Range/Units 05:44 Sodium 136 L (137-145) mmol/L Potassium 3.7 (3.5-5.1) mmol/L Chloride 102 (98-107) mmol/L Carbon Dioxide 28 (22-30) mmol/L BUN 16 (7-17) mg/dL Creatinine 0.94 (0.52-1.04) mg/dL Glucose 151 H (74-99) mg/dL Calcium 9.5 (8.4-10.2) mg/dL AST 36 (14-36) U/L ALT 31 (4-34) U/L Alkaline Phosphatase 53 (38-126) U/L Total Protein 7.1 (6.3-8.2) g/dL Albumin 4.3 (3.5-5.0) g/dL Calcium panel 10/07/23 Range/Units 05:44 Calcium 9.5 (8.4-10.2) mg/dL Albumin 4.3 (3.5-5.0) g/dL Pituitary panel 10/07/23 Range/Units 05:44 Sodium 136 L (137-145) mmol/L Potassium 3.7 (3.5-5.1) mmol/L Chloride 102 (98-107) mmol/L Carbon Dioxide 28 (22-30) mmol/L BUN 16 (7-17) mg/dL Creatinine 0.94 (0.52-1.04) mg/dL Glucose 151 H (74-99) mg/dL Calcium 9.5 (8.4-10.2) mg/dL Adrenal panel 10/07/23 Range/Units 05:44 Sodium 136 L (137-145) mmol/L Potassium 3.7 (3.5-5.1) mmol/L Chloride 102 (98-107) mmol/L Carbon Dioxide 28 (22-30) mmol/L BUN 16 (7-17) mg/dL Creatinine 0.94 (0.52-1.04) mg/dL Glucose 151 H (74-99) mg/dL Calcium 9.5 (8.4-10.2) mg/dL Total Bilirubin 0.7 (0.2-1.3) mg/dL AST 36 (14-36) U/L ALT 31 (4-34) U/L Alkaline Phosphatase 53 (38-126) U/L Total Protein 7.1 (6.3-8.2) g/dL Albumin 4.3 (3.5-5.0) g/dL
[2023-10-07] MEDS ORDERED: MORPHINE SULFATE 4 MG/ML SYRINGE IVP PRN (12:41)
[2023-10-07] MEDS: IV FLUID CONTINUATION 1,000 ML IV ONE (13:19)
[2023-10-07] MEDS: ONDANSETRON 4 MG/2 ML VIAL IVP ONE ×3 (13:27→17:33)
[2023-10-07] MEDS: SCOPOLAMINE 1 MG/72 HR PATCH TRANSDERM ONE (13:28)
[2023-10-07] MEDS: DEXAMETHASONE SOD PHOSPHATE 4 MG/ML 1 ML VIAL IVP ONE (13:28)
[2023-10-07] MEDS ORDERED: LIDOCAINE 1% INJ 10MG/ML (20 ML MDV) ONE (14:05)
[2023-10-07] MEDS ORDERED: fentaNYL (PF) 50 MCG/ML 2 ML AMP ONE (14:05)
[2023-10-07] MEDS ORDERED: GLYCOPYRROLATE 0.2 MG/ML 2 ML VIAL ONE (14:05)
[2023-10-07] MEDS ORDERED: SUCCINYLCHOLINE CHLORIDE 200 MG/10 ML VIAL IV ONE (14:05)
[2023-10-07] MEDS ORDERED: ROCURONIUM 10 MG/ML (5 ML VIAL) IV ONE (14:05)
[2023-10-07] MEDS ORDERED: PHENYLEPHRINE 10 MG/ML VIAL ONE (14:05)
[2023-10-07] MEDS ORDERED: PROPOFOL 10 MG/ML 20 ML VIAL IV ONE (14:05)
[2023-10-07] MEDS ORDERED: MIDAZOLAM 2 MG/2 ML VIAL ONE (14:05)
[2023-10-07] MEDS ORDERED: NEOSTIGMINE 1 MG/ML 10 ML VIAL ONE (14:05)
[2023-10-07] MEDS: BUPIVACAINE (PF) 0.25% 30 ML VIAL SQ ONE (14:10)
[2023-10-07] MEDS: LACTATED RINGERS 1,000 ML IV ONE (14:58)
[2023-10-07] MEDS ORDERED: NALOXONE 0.4 MG/ML 1 ML VIAL IV PRN (15:00)
[2023-10-07] MEDS ORDERED: ACETAMINOPHEN TAB 325 MG TAB PO PRN (15:02)
--- NOTE | 2023-10-07 15:05 | P.OP ---
Date of Procedure: 10/07/23 Procedure(s) Performed: PREOPERATIVE DIAGNOSIS: Acute appendicitis POSTOPERATIVE DIAGNOSIS: Same PROCEDURE: Laparoscopic appendectomy SURGEON: Jack EBL: 5 cc ANESTHESIA: General COMPLICATIONS: None OPERATIVE PROCEDURE: The patient was brought and placed on the operating table in the supine position. The patient was placed under general anesthesia. The abdomen was prepped and draped in the usual sterile fashion. A small vertical infraumbilical incision was made. The fascia was retracted anteriorly with Myrna forceps. The Veress needle was advanced into the peritoneal cavity. The saline drop test was normal. Insufflation took place to 15 mmHg. A 5 mm trocar was then placed. An additional 5 mm suprapubic trocar was placed under direct visualization as well as a 12 mm left lower quadrant trocar under direct visualization. The appendix was inspected. It was acutely inflamed. There was some purulent fluid around the appendix. There was no signs of perforation or gangrene. The patient's right ovary had a benign appearing cyst. I did run the small bowel to rule out any other abnormalities and none were seen. The patient had no visible adhesions. The visualized stomach liver and colon appeared normal. I could not visualize the spleen well. Attention was directed to the appendix. The mesoappendix was dissected. The base of the appendix was divided using a linear 45 mm intestinal stapler. The mesentery itself was divided using LigaSure. The area was then irrigated. No further purulence or bleeding was seen. The appendix was brought out of the peritoneal cavity through the left lower quadrant trocar site with an Endo Catch bag. The fascia at the 12 mm site was closed using a Jean Claude-Melissa 0 Vicryl stitch. The skin at all 3 sites was closed using 4-0 Monocryl sutures. Skin glue was then applied. DISPOSITION: Stable to recovery room
[2023-10-07] MEDS: HYDROmorphone 0.5 MG/0.5 ML SYRINGE IVP ONE ×2 (15:58→16:22)
[2023-10-07] MEDS: PIPERACILLIN-TAZOBACTAM 3.375 GM in SODIUM CHLORIDE 0.9% 100 ML IVPB SCH (17:28)
[2023-10-07] MEDS: DEXAMETHASONE SOD PHOSPHATE 4 MG/ML 1 ML VIAL IV ONE (17:32)
[2023-10-07] MEDS: LACTATED RINGERS 1,000 ML IV SCH (17:33)
[2023-10-07] MEDS: HYDROmorphone 1 MG/ML 1 ML SYRINGE IVP PRN (19:49)
[2023-10-07] MEDS: ESCITALOPRAM 20 MG TAB PO SCH (21:33)
[2023-10-07] MEDS: traMADol 50 MG TAB PO PRN (21:33)
[2023-10-07] MEDS: TOPIRAMATE 25 MG TAB PO SCH (21:34)
[2023-10-08] MEDS ORDERED: HYDROmorphone 0.5 MG/0.5 ML SYRINGE IVP PRN (07:00)
[2023-10-08] MEDS: HYDROcodone/APAP 5-325MG 1 EACH TAB PO PRN (08:12)
[2023-10-08 11:19] LABS: Basophils % (A) 0 %; Eosinophils % (A) 0 %; HGB 12.1 gm/dL (11.4-16.0); Lymphocytes # (A) 1.6 k/uL (1.0-4.8); Lymphocytes % (A) 19 %; MCH 29.9 pg (25.0-35.0); MCHC 32.7 g/dL (31.0-37.0); MCV 91.6 fL (80.0-100.0); Monocytes # (A) 0.6 k/uL (0-1.0); Monocytes % (A) 7 %; Neutrophils % (A) 71 %; Platelet Count 199 k/uL (150-450); RBC 4.04 m/uL (3.80-5.40); RDW 13.6 % (11.5-15.5); WBC 8.4 k/uL (3.8-10.6)
[2023-10-08 13:32] VITALS: RESP 14; TEMP 98.3
--- NOTE | 2023-10-08 14:50 | P.DS ---
Providers Date of admission: 10/07/23 09:05 Expected date of discharge: 10/08/23 Attending physician: Dung Santiago Primary care physician: Rickey Mccarthy Hospital Course: Discharge diagnosis 1. Acute appendicitis Hospital course This is a 33-year-old female presented with right lower quadrant abdominal pain. CT abdomen and pelvis reported appendix is fluid distended and mildly thickened. Correlate for possibility of early acute appendicitis. Patient's white count is elevated. Patient is status post laparoscopic appendectomy. She tolerated surgery well. Her white count has normalized. She is afebrile. She is tolerating diet. Her pain is controlled. She has been up and ambulating. Denies any difficulty urinating. She is stable for discharge. Please refer to chart for any further details. Physician Elementary Reading Tutor note has been reviewed by physician. Signing provider agrees with the documented findings, assessment, and plan of care. Patient Condition at Discharge: Stable Plan - Discharge Summary Discharge Rx Participant: No New Discharge Prescriptions: New Amoxic-Pot Clav 875-125Mg [Augmentin 875-125] 1 tab PO Q12HR 7 Days #14 tab HYDROcodone/APAP 5-325MG [[place] 5-325] 1 tab PO Q6HR PRN 3 Days #12 tab PRN Reason: Pain Continue Topiramate [Topamax] 50 mg PO DAILY Metoprolol Succinate (ER) [Toprol XL] 25 mg PO DAILY Albuterol Sulfate [Albuterol Sulfate Hfa] 2 puff PO RT-Q4H PRN PRN Reason: Shortness Of Breath Escitalopram [Lexapro] 20 mg PO DAILY Discharge Medication List Albuterol Sulfate [Albuterol Sulfate Hfa] 2 puff PO RT-Q4H PRN 10/07/23 [History] Escitalopram [Lexapro] 20 mg PO DAILY 10/07/23 [History] Metoprolol Succinate (ER) [Toprol XL] 25 mg PO DAILY 10/07/23 [History] Topiramate [Topamax] 50 mg PO DAILY 10/07/23 [History] Amoxic-Pot Clav 875-125Mg [Augmentin 875-125] 1 tab PO Q12HR 7 Days #14 tab 10/08/23 [Rx] HYDROcodone/APAP 5-325MG [[place] 5-325] 1 tab PO Q6HR PRN 3 Days #12 tab 10/08/23 [Rx] Follow up Appointment(s)/Referral(s): Dung Santiago MD [Medical Doctor] - 1 Week Rickey Mccarthy DO [Primary Care Provider] - 1-2 days Activity/Diet/Wound Care/Special Instructions: No driving while taking [place] No lifting over 10 pounds You may shower. No soaking or tub baths for 2 weeks Very light activity until you are reevaluated at your follow up appointment with your surgeon Do Not take hydrochlorothiazide for the next 3 days and follow up with PCP Check BP daily and hold hydrochlorothiazide for SBP<120 Discharge Disposition: HOME SELF-CARE
[2023-10-08 15:07] VITALS: BP 114/73; PULSE 88
[2023-10-08] MEDS ORDERED: ESCITALOPRAM 20 MG TAB PO SCH (21:00)
[2023-10-08] MEDS ORDERED: TOPIRAMATE 25 MG TAB PO SCH (21:00)
== END 2023-10-08 16:02 | disposition home or self-care (01) ==
LOC: EC 05:00 → 6NMEDSUR 09:05 → 4SSUR 15:05
PROVIDERS: ADMIT Surgery; ATTEND Surgery
DX: K35.80 Unspecified acute appendicitis (principal); I10 Essential (primary) hypertension; F41.9 Anxiety disorder, unspecified; F32.A Depression, unspecified; Z90.49 Acquired absence of other specified parts of digestive tract; Z86.14 Personal history of Methicillin resistant Staphylococcus aureus infection; Z79.899 Other long term (current) drug therapy
CPT/HCPCS: 96376 ×2; 96361; 96365; 96366 ×2; 96367; 96375; 99285; 36415; 93005; 81025; 88304; 80053; 82150; 83605; 83690; 84484; 85025 ×2; 85610; 85730; 81003; 84703; 87040; 87070; 87205; 87075; 74177; 44970; G0378 ×3; J2543 ×2; J2250; J0330; J2270; J1100; J2710; J2405; J2001; J3010; J1170 ×3; J3475; J2704; C9113; Q9967; J2371; J0665

== ENCOUNTER 2023-10-18 10:31 | Emergency (ER) | payer OTHER ==
[2023-10-18] MEDS: SODIUM CHLORIDE 0.9% 500 ML 500 ML IV STA (11:28)
[2023-10-18 11:36] LABS: Basophils % (A) 0 %; Eosinophils # (A) 0.1 k/uL (0-0.7); Eosinophils % (A) 1 %; HGB 14.4 gm/dL (11.4-16.0); Lymphocytes # (A) 1.5 k/uL (1.0-4.8); Lymphocytes % (A) 21 %; MCH 30.7 pg (25.0-35.0); MCHC 33.4 g/dL (31.0-37.0); MCV 91.7 fL (80.0-100.0); Mean Platelet Volume 8.6; Monocytes # (A) 0.3 k/uL (0-1.0); Monocytes % (A) 4 %; Neutrophils % (A) 71 %; Platelet Count 234 k/uL (150-450); RBC 4.69 m/uL (3.80-5.40); RDW 13.1 % (11.5-15.5)
[2023-10-18 11:37] VITALS: RESP 18
[2023-10-18 11:47] LABS: INR 0.9 (<1.2); Prothrombin Time 10.1 sec (10.0-12.5)
--- NOTE | 2023-10-18 12:07 | ED ---
Abdominal Pain HPI - General Chief Complaint: Abdominal Pain Stated Complaint: Bruising/pain on legs-post surgery Time Seen by Provider: 10/18/23 10:37 Source: patient, RN notes reviewed Mode of arrival: ambulatory Limitations: no limitations - History of Present Illness Initial Comments: 33-year-old female presents emergency department with chief complaint of abdominal discomfort, bruising of her legs. Patient states she had a appendectomy by Dr. Santiago patient states that she is doing well she initially was constipated but was given laxatives by PCP. She states she has some left- sided discomfort and swelling around her incision. She denies any fevers or chills she states she initially was taking [place] after discharge but states that she is not taking it currently. She has no complaint of dysuria she states she noticed some faint bruising of the bilateral lower extremities which started on Wednesday. - Related Data Home Medications Medication Instructions Recorded Confirmed Albuterol Sulfate [Albuterol 2 puff PO RT-Q4H PRN 10/07/23 10/07/23 Sulfate Hfa] Escitalopram [Lexapro] 20 mg PO DAILY 10/07/23 10/07/23 Metoprolol Succinate (ER) [Toprol 25 mg PO DAILY 10/07/23 10/07/23 XL] Topiramate [Topamax] 50 mg PO DAILY 10/07/23 10/07/23 Previous Rx's Medication Instructions Recorded Amoxic-Pot Clav 875-125Mg 1 tab PO Q12HR 7 Days #14 tab 10/08/23 [Augmentin 875-125] HYDROcodone/APAP 5-325MG [[place] 1 tab PO Q6HR PRN 3 Days #12 tab 10/08/23 5-325] Allergies Allergy/AdvReac Type Severity Reaction Status Date / Time No Known Allergies Allergy Verified 10/18/23 10:53 Review of Systems ROS Statement: Those systems with pertinent positive or pertinent negative responses have been documented in the HPI. ROS Other: All systems not noted in ROS Statement are negative. Past Medical History Past Medical History: Asthma, Hypertension Additional Past Medical History / Comment(s): pancreatitis. pyloric stenosis, migraines History of Any Multi-Drug Resistant Organisms: MRSA Date of last positivie culture/infection: 2011 MDRO Source:: lt upper thigh area Past Surgical History: Appendectomy, Cholecystectomy, Orthopedic Surgery Additional Past Surgical History / Comment(s): lt finger tendon repair Past Anesthesia/Blood Transfusion Reactions: No Reported Reaction Past Psychological History: Anxiety, Depression Smoking Status: Vaper Past Alcohol Use History: None Reported Past Drug Use History: Marijuana, Methamphetamine - Past Family History Mother Family Medical History: Hypertension General Exam General appearance: alert, in no apparent distress Head exam: Present: atraumatic, normocephalic, normal inspection Eye exam: Present: normal appearance, PERRL, EOMI. Absent: scleral icterus, conjunctival injection, periorbital swelling ENT exam: Present: normal exam, normal oropharynx, mucous membranes moist Neck exam: Present: normal inspection, full ROM. Absent: tenderness, meningismus, lymphadenopathy Respiratory exam: Present: normal lung sounds bilaterally. Absent: respiratory distress, wheezes, rales, rhonchi, stridor Cardiovascular Exam: Present: regular rate, normal rhythm, normal heart sounds. Absent: systolic murmur, diastolic murmur, rubs, gallop, clicks GI/Abdominal exam: Present: soft, tenderness (Left-sided mild tenderness around left-sided incision), normal bowel sounds. Absent: distended, guarding, rebound, rigid Back exam: Absent: CVA tenderness (R), CVA tenderness (L) Neurological exam: Present: alert Skin exam: Present: other (Ecchymosis lower extremities) Course Vital Signs 10/18/23 10:49 Temperature 97.3 F L Pulse Rate 95 Respiratory 18 Rate Blood Pressure 115/80 O2 Sat by Pulse 98 Oximetry Medical Decision Making - Medical Decision Making Was pt. sent in by a medical professional or institution (, PA, PROPERTY APPRAISER, urgent care, hospital, or senior living...) When possible be specific @ -No Did you speak to anyone other than the patient for history (EMS, parent, family, police, friend...)? What history was obtained from this source @ -No Did you review nursing and triage notes (agree or disagree)? Why? @ -I reviewed and agree with nursing and triage notes Were old charts reviewed (outside hosp., previous admission, EMS record, old EKG, old radiological studies, urgent care reports/EKG's, senior living records)? Report findings @ -Reviewed recent admission, laboratory studies, CT Differential Diagnosis (chest pain, altered mental status, abdominal pain women, abdominal pain men, vaginal bleeding, weakness, fever, dyspnea, syncope, headache, dizziness, GI bleed, back pain, seizure, CVA, palpatations, mental health, musculoskeletal)? @ -Differential Abdominal Pain Women: Appendicitis, Cholecystitis, diverticulosis, ischemic bowel, pancreatitis, hepatitis, UTI, gastroenteritis, AAA, incarcerated hernia, bowel obstruction, constipation, inflammatory bowel, hepatitis, peptic ulcer disease, splenic in farction, perforated viscus, vulvitis, ovarian torsion, PID, kidney stone, placenta abruption, this is not meant to be an all-inclusive list EKG interpreted by me (3pts min.). @ -[None none X-rays interpreted by me (1pt min.). @ -X-ray KUB showing nonspecific bowel gas pattern calcified cyst left upper quadrant CT interpreted by me (1pt min.). @ -None done U/S interpreted by me (1pt. min.). @ -Ultrasound over left side of the abdomen over incision site no fluid collection or acute or malady What testing was considered but not performed or refused? (CT, X-rays, U/S, labs)? Why? @ -None What meds were considered but not given or refused? Why? @ -None Did you discuss the management of the patient with other professionals (professionals i.e. , PA, PROPERTY APPRAISER, lab, RT, psych nurse, child protective services social worker, senior data developer, teacher, vice squad police officer, case managers)? Give summary @ -No Was smoking cessation discussed for >3mins.? @ -No Was critical care preformed (if so, how long)? @ -No Were there social determinants of health that impacted care today? How? (Homelessness, low income, unemployed, alcoholism, drug addiction, transportation, low edu. Level, literacy, decrease access to med. care, shelter, rehab)? @ -No Was there de-escalation of care discussed even if they declined (Discuss DNR or withdrawal of care, Hospice)? DNR status @ -No What co-morbidities impacted this encounter? (DM, HTN, Smoking, COPD, CAD, Cancer, CVA, ARF, Chemo, Hep., AIDS, mental health diagnosis, sleep apnea, morbid obesity)? @ -None Was patient admitted / discharged? Hospital course, mention meds given and route, prescriptions, significant lab abnormalities, going to OR and other pertinent info. @ -Discharge patient is well-appearing vitals are stable unremarkable findings on labs, imaging patient has a follow-up appointment with surgeon return pressure discussed. Undiagnosed new problem with uncertain prognosis? @ -No Drug Therapy requiring intensive monitoring for toxicity (Heparin, Nitro, Insulin, Cardizem)? @ -No Were any procedures done? @ -No Diagnosis/symptom? @ -Abdominal pain Acute, or Chronic, or Acute on Chronic? @ -Acute Uncomplicated (without systemic symptoms) or Complicated (systemic symptoms)? @ -Uncomplicated Side effects of treatment? @ -No Exacerbation, Progression, or Severe Exacerbation? @ -No Poses a threat to life or bodily function? How? (Chest pain, [place], ME, pneumonia, PE, COPD, DKA, ARF, appy, cholecystitis, CVA, Diverticulitis, Homicidal, Suicidal, threat to staff... and all critical care pts) @ -No - Lab Data Result diagrams: 10/18/23 11:29 10/18/23 11:29 Lab Results 10/18/23 10/18/23 10/18/23 Range/Units 11:29 11:29 11:29 WBC 7.0 (3.8-10.6) k/uL RBC 4.69 (3.80-5.40) m/uL Hgb 14.4 (11.4-16.0) gm/dL Hct 43.0 (34.0-46.0) % MCV 91.7 (80.0-100.0) fL MCH 30.7 (25.0-35.0) pg MCHC 33.4 (31.0-37.0) g/dL RDW 13.1 (11.5-15.5) % Plt Count 234 (150-450) k/uL MPV 8.6 Neutrophils % 71 % Lymphocytes % 21 % Monocytes % 4 % Eosinophils % 1 % Basophils % 0 % Neutrophils # 5.0 (1.3-7.7) k/uL Lymphocytes # 1.5 (1.0-4.8) k/uL Monocytes # 0.3 (0-1.0) k/uL Eosinophils # 0.1 (0-0.7) k/uL Basophils # 0.0 (0-0.2) k/uL PT 10.1 (10.0-12.5) sec INR 0.9 (<1.2) APTT 25.0 (22.0-30.0) sec Sodium 138 (137-145) mmol/L Potassium 4.1 (3.5-5.1) mmol/L Chloride 114 H (98-107) mmol/L Carbon Dioxide 18 L (22-30) mmol/L Anion Gap 6 mmol/L BUN 9 (7-17) mg/dL Creatinine 0.70 (0.52-1.04) mg/dL Est GFR (CKD-EPI)AfAm >90 (>60 ml/min/1.73 sqM) Est GFR (CKD-EPI)NonAf >90 (>60 ml/min/1.73 sqM) Glucose 89 (74-99) mg/dL Calcium 9.0 (8.4-10.2) mg/dL Total Bilirubin 0.5 (0.2-1.3) mg/dL AST 30 (14-36) U/L ALT 38 H (4-34) U/L Alkaline Phosphatase 47 (38-126) U/L Total Protein 6.5 (6.3-8.2) g/dL Albumin 3.8 (3.5-5.0) g/dL Lipase 90 (23-300) U/L Disposition Clinical Impression: Abdominal pain Disposition: HOME SELF-CARE Condition: Stable Instructions (If sedation given, give patient instructions): Abdominal Pain (ED) Additional Instructions: Please return to the Emergency Department if symptoms worsen or any other concerns. Is patient prescribed a controlled substance at d/c from ED?: No Referrals: Rickey Mccarthy DO [Primary Care Provider] - 1-2 days Time of Disposition: 13:12
--- NOTE | 2023-10-18 12:26 | XR ---
EXAMINATION TYPE: XR KUB DATE OF EXAM: 10/18/2023 12:01 PM CLINICAL INDICATION:Female, 33 years old with history of abdominal pain; [facility] COMPARISON: None. TECHNIQUE: One radiographic view of the abdomen was obtained. FINDINGS: The bowel gas pattern is nonspecific without dilated loops of small or large bowel. There i s no evidence for organomegaly or pneumoperitoneum. The osseous structures are intact. No abnormal calcifications are present. Fecal material and gas are demonstrated throughout the colon and rectum. Peripherally calcified left upper quadrant splenic probable pseudocyst. Right: Lithiasis clips. Surg ical clips in the pelvis. IMPRESSION: Nonspecific bowel gas pattern without radiographic evidence for acute process.
--- NOTE | 2023-10-18 12:38 | US ---
EXAMINATION TYPE: US abdomen limited DATE OF EXAM: 10/18/2023 COMPARISON: NONE CLINICAL INDICATION: Female, 33 years old with history of left sided incision, pain swelling; Post ap pendectomy 10/07/23. Pain LLQ near incision TECHNIQUE: Real-time sector scanning sonography left lower quadrant FINDINGS: scanned within area of concern, LLQ near incision, no evidence of significant fluid collec tion at this time IMPRESSION: 1. No suspicious abnormality left lower quadrant at the area of patient's pain near the incision
[2023-10-18 12:49] LABS: ALT 38 U/L (4-34); AST 30 U/L (14-36); African American GFR (CKD) >90 (>60 ml/min/1.73 sqM); Albumin 3.8 g/dL (3.5-5.0); Alkaline Phosphatase 47 U/L (38-126); Anion Gap 6 mmol/L; Blood Urea Nitrogen 9 mg/dL (7-17); Carbon Dioxide 18 mmol/L (22-30); Chloride 114 mmol/L (98-107); Glucose 89 mg/dL (74-99); Lipase 90 U/L (23-300); Non-African American GFR(CKD) >90 (>60 ml/min/1.73 sqM); Potassium 4.1 mmol/L (3.5-5.1); Sodium 138 mmol/L (137-145); Total Bilirubin 0.5 mg/dL (0.2-1.3); Total Protein 6.5 g/dL (6.3-8.2)
[2023-10-18 13:39] VITALS: BP 114/75; PULSE 62; TEMP 98
[2023-10-18 13:58] LABS: Appearance,Urine Cloudy (Clear); Bilirubin,Urine Negative (Negative); Blood,Urine Negative (Negative); Color,Urine Light Yellow; Glucose,Urine (UA) Negative (Negative); Ketones,Urine Negative (Negative); Leukocyte Esterase,Urine Large (Negative); Mucus,Urine Few /hpf; Nitrite,Urine Negative (Negative); PH, Urine 5.5 (5.0-8.0); Protein,Urine Negative (Negative); RBC,Urine 1 /hpf (0-5); Specific Gravity,Urine 1.019 (1.001-1.035); Squamous Epithelial Cell,Urine 5 /hpf (0-4); Urobilinogen,Urine <2.0 mg/dL (<2.0); WBC,Urine 6 /hpf (0-5)
== END 2023-10-18 13:24 | disposition home or self-care (01) ==
LOC: EC 10:31
DX: R10.9 Unspecified abdominal pain (principal); J45.909 Unspecified asthma, uncomplicated; I10 Essential (primary) hypertension; F41.9 Anxiety disorder, unspecified; F32.A Depression, unspecified; F17.290 Nicotine dependence, other tobacco product, uncomplicated; F12.90 Cannabis use, unspecified, uncomplicated; F15.90 Other stimulant use, unspecified, uncomplicated; Z79.899 Other long term (current) drug therapy
CPT/HCPCS: 36415; 74018; 76705; 80053; 81001; 83690; 85025; 85610; 85730; 96360; 99284

== ENCOUNTER → 2023-11-29 | Outpatient (CLI) | payer OTHER ==
--- NOTE | 2023-11-29 13:13 | XR ---
EXAMINATION TYPE: XR chest 2V DATE OF EXAM: 11/29/2023 COMPARISON: 10/15/2022 TECHNIQUE: PA and lateral views submitted. HISTORY: Chest pain FINDINGS: Subsegmental change left lung base. Linear changes left upper lobe stable most typical of scarring or atelectasis. No pneumothorax or side pleural effusion. Heart size normal and no overt failure. Hoffman us structures demonstrate hypertrophic and degenerative changes of the spine. IMPRESSION: 1. Left basilar atelectasis versus early infiltrate..
== END | disposition home or self-care (01) ==
LOC: RADXRMAIN 12:33
PROVIDERS: ATTEND Internal Medicine
DX: R07.9 Chest pain, unspecified (principal)
CPT/HCPCS: 71046

== ENCOUNTER 2023-12-27 14:31 | Emergency (ER) | payer OTHER ==
--- NOTE | 2023-12-27 14:41 | ED ---
Extremity Problem HPI - General Source: patient, RN notes reviewed Mode of arrival: ambulatory Limitations: no limitations <Shirley Lewis - Last Filed: 12/27/23 14:40> <Belen Luong - Last Filed: 12/27/23 22:20> - General Chief complaint: Extremity Problem,Nontraumatic Stated complaint: Pain L foot Time Seen by Provider: 12/27/23 14:40 - History of Present Illness Initial comments: Quick note: 33-year-old female presented to the ER with chief complaint of left foot pain. She states been going on for about 2 weeks. Denies any known traumas or injuries. Denies any calf tenderness or swelling. (Shirley Lewis) 33-year-old female presents to the emergency department for evaluation of left foot pain. She states that this has been going on for 2 weeks. She notes that it is on the top of her foot in the distal portion of her foot. She denies any injury. She states it is worse when she walks on it. She denies any redness, swelling, calf pain. She has not tried any medication to help with the discomfort. (Belen Luong) - Related Data Home Medications Medication Instructions Recorded Confirmed Albuterol Sulfate [Albuterol 2 puff PO RT-Q4H PRN 10/07/23 10/07/23 Sulfate Hfa] Escitalopram [Lexapro] 20 mg PO DAILY 10/07/23 10/07/23 Metoprolol Succinate (ER) [Toprol 25 mg PO DAILY 10/07/23 10/07/23 XL] Topiramate [Topamax] 50 mg PO DAILY 10/07/23 10/07/23 Previous Rx's Medication Instructions Recorded Amoxic-Pot Clav 875-125Mg 1 tab PO Q12HR 7 Days #14 tab 10/08/23 [Augmentin 875-125] HYDROcodone/APAP 5-325MG [[place] 1 tab PO Q6HR PRN 3 Days #12 tab 10/08/23 5-325] Allergies Allergy/AdvReac Type Severity Reaction Status Date / Time No Known Allergies Allergy Verified 12/27/23 14:39 Review of Systems ROS Other: All systems not noted in ROS Statement are negative. <Shirley Lewis - Last Filed: 05/06/24 14:40> ROS Other: All systems not noted in ROS Statement are negative. <Belen Luong - Last Filed: 12/27/23 22:20> ROS Statement: Those systems with pertinent positive or pertinent negative responses have been documented in the HPI. Past Medical History Past Medical History: Asthma, Hypertension Additional Past Medical History / Comment(s): pancreatitis. pyloric stenosis, migraines History of Any Multi-Drug Resistant Organisms: MRSA Date of last positivie culture/infection: 2011 MDRO Source:: lt upper thigh area Past Surgical History: Appendectomy, Cholecystectomy, Orthopedic Surgery Additional Past Surgical History / Comment(s): lt finger tendon repair Past Anesthesia/Blood Transfusion Reactions: No Reported Reaction Past Psychological History: Anxiety, Depression Smoking Status: Vaper Past Alcohol Use History: None Reported Past Drug Use History: Marijuana, Methamphetamine - Past Family History Mother Family Medical History: Hypertension <Shirely Lewis - Last Filed: 12/27/23 14:40> General Exam Limitations: no limitations <Shirley Lewis - Last Filed: 12/27/23 14:40> Limitations: no limitations General appearance: alert, in no apparent distress Head exam: Present: atraumatic, normocephalic, normal inspection Eye exam: Present: normal appearance, PERRL, EOMI. Absent: scleral icterus, conjunctival injection, periorbital swelling Respiratory exam: Present: normal lung sounds bilaterally. Absent: respiratory distress, wheezes, rales, rhonchi, stridor Cardiovascular Exam: Present: regular rate, normal rhythm, normal heart sounds. Absent: systolic murmur, diastolic murmur, rubs, gallop, clicks Extremities exam: Present: normal inspection, full ROM, tenderness (Tenderness palpation of the distal dorsal aspect of the left foot), normal capillary refill, other (DP and PT pulses 2+). Absent: pedal edema, joint swelling, calf tenderness Neurological exam: Present: alert, oriented X3 Psychiatric exam: Present: normal affect, normal mood Skin exam: Present: warm, dry, intact, normal color. Absent: rash <Belen Luong - Last Filed: 12/27/23 22:20> - General Exam Comments Initial Comments: Visual Physical Exam Vital signs reviewed General: Well-appearing, nontoxic, no acute distress. Head: Normocephalic, atraumatic Eyes: PERRLA, EOMI ENT: Airway patent Chest: Nonlabored breathing Skin: No visual rash, normal skin tone Neuro: Alert and oriented 3 Musculoskeletal: No gross abnormalities (Shirley Lewis) Course Vital Signs 12/27/23 12/27/23 14:36 16:22 Temperature 98.0 F Pulse Rate 77 Respiratory 16 16 Rate Blood Pressure 130/90 O2 Sat by Pulse 97 Oximetry Medical Decision Making <Shirley Leiws - Last Filed: 12/27/23 14:40> <Belen Luong - Last Filed: 12/27/23 22:20> - Medical Decision Making I performed the quick note portion of this chart. Electronically signed by Shirley Lewis PA-C (Shirley Lewis) Was pt. sent in by a medical professional or institution ([facility], LICENSED [employer]ENT[employer] PROFESSIONAL, urgent care, hospital, or snf...) When possible be specific @ -No Did you speak to anyone other than the patient for history (EMS, parent, family, police, friend...)? What history was obtained from this source @ -No Did you review nursing and triage notes (agree or disagree)? Why? @ -I reviewed and agree with nursing and triage notes Were old charts reviewed (outside hosp., previous admission, EMS record, old EKG, old radiological studies, urgent care reports/EKG's, snf records)? Report findings @ -No old charts were reviewed Differential Diagnosis (chest pain, altered mental status, abdominal pain women, abdominal pain men, vaginal bleeding, weakness, fever, dyspnea, syncope, heada lenard, dizziness, GI bleed, back pain, seizure, CVA, palpatations, mental health, musculoskeletal)? @ -n differential Musculoskeletal Muscular strain, contusion, ligament sprain, fracture, arthritis, septic arthritis, bursitis, cellulitis, muscle spasm, nerve compression, DVT, arterial occlusion, herpes zoster, electrolyte abnormality, tumor.... This is not meant to be in all inclusive list EKG interpreted by me (3pts min.). @ -None X-rays interpreted by me (1pt min.). @ -X-ray of the left foot shows no evidence of acute fracture or dislocation CT interpreted by me (1pt min.). @ -None done U/S interpreted by me (1pt. min.). @ -None done What testing was considered but not performed or refused? (CT, X-rays, U/S, labs)? Why? @ -None What meds were considered but not given or refused? Why? @ -None Did you discuss the management of the patient with other professionals (professionals i.e. , PA, LICENSED MENTAL HEALTH PROFESSIONAL, lab, RT, psych nurse, transition social worker, admiralty lawyer, teacher, booking officer, family service caseworker)? Give summary @ -No Was smoking cessation discussed for >3mins.? @ -No Was critical care preformed (if so, how long)? @ -No Were there social determinants of health that impacted care today? How? ( Homelessness, low income, unemployed, alcoholism, drug addiction, transportation, low edu. Level, literacy, decrease access to med. care, nursing home, rehab)? @ -No Was there de-escalation of care discussed even if they declined (Discuss DNR or withdrawal of care, Hospice)? DNR status @ -No What co-morbidities impacted this encounter? (DM, HTN, Smoking, COPD, CAD, Cancer, CVA, ARF, Chemo, Hep., AIDS, mental health diagnosis, sleep apnea, morbid obesity)? @ -None Was patient admitted / discharged? Hospital course, mention meds given and route, prescriptions, significant lab abnormalities, going to OR and other pertinent info. @ -Discharge. Patient presented to the emergency department for evaluation of left foot pain. X-rays obtained which show no evidence of acute fracture. Distally neurovascular intact. Discussed symptomatic treatment with patient at this time. Patient understanding of plan. Patient stable at time of discharge. Case discussed with Dr. Hutchins. Undiagnosed new problem with uncertain prognosis? @ -No Drug Therapy requiring intensive monitoring for toxicity (Heparin, Nitro, Insulin, Cardizem)? @ -No Were any procedures done? @ -No Diagnosis/symptom? @ -Foot pain Acute, or Chronic, or Acute on Chronic? @ -acute Uncomplicated (without systemic symptoms) or Complicated (systemic symptoms)? @ -uncomplicated Side effects of treatment? @ -No Exacerbation, Progression, or Severe Exacerbation? @ -No Poses a threat to life or bodily function? How? (Chest pain, [place], [place], pneumonia, PE, COPD, DKA, ARF, appy, cholecystitis, CVA, Diverticulitis, Homicidal, Suicida l, threat to staff... and all critical care pts) @ -No (Belen Luong) Disposition <Shirley Lewis - Last Filed: 12/27/23 14:40> Is patient prescribed a controlled substance at d/c from ED?: No <Belen Luong - Last Filed: 12/27/23 22:20> Clinical Impression: Foot pain Disposition: HOME SELF-CARE Condition: Stable Instructions (If sedation given, give patient instructions): Metatarsalgia (DC) Additional Instructions: Rest, ice, elevate the foot. Utilize your compression socks. Alternate Tylenol and Motrin for pain. Referrals: Rickey Mccarthy, [Primary Care Provider] - 1-2 days
[2023-12-27 15:23] VITALS: BP 130/90; PULSE 77; RESP 16; TEMP 98
--- NOTE | 2023-12-27 15:28 | XR ---
EXAMINATION TYPE: XR foot complete LT DATE OF EXAM: 12/27/2023 COMPARISON: NONE HISTORY: Pain TECHNIQUE: Three views are submitted. FINDINGS: The osseous structures are intact. There is no acute fracture or dislocation. Joint spaces are p reserved. IMPRESSION: 1. No acute fracture or dislocation. If symptoms persist, follow-up exam in 7 to 10 days could be ob tained.
== END 2023-12-27 16:24 | disposition home or self-care (01) ==
LOC: EC 14:31
DX: M79.672 Pain in left foot (principal); F17.290 Nicotine dependence, other tobacco product, uncomplicated
CPT/HCPCS: 99283

== ENCOUNTER → 2024-01-19 | Outpatient (CLI) | payer OTHER ==
--- NOTE | 2024-01-19 11:01 | XR ---
EXAMINATION TYPE: XR chest 2V DATE OF EXAM: 01/19/2024 COMPARISON: For a 24 TECHNIQUE: PA and lateral views submitted. HISTORY: Cough FINDINGS: The lungs are clear and there is no pneumothorax, pleural effusion, or focal pneumonia. Improved ae ration left lung base. Heart size normal and no overt failure. Osseous structures demonstrate hypertr ophic and degenerative changes of the spine. Linear changes left upper lobe suggestive of scarring or chronic discoid atelectasis stable. IMPRESSION: 1. Interval marked improvement in aeration at the left lung base with near complete resolution.
== END | disposition home or self-care (01) ==
LOC: LABWHC1 10:04
PROVIDERS: ATTEND Internal Medicine
DX: J18.9 Pneumonia, unspecified organism (principal); J98.4 Other disorders of lung
CPT/HCPCS: 71046

== ENCOUNTER 2024-03-02 01:07 | Emergency (ER) | payer OTHER ==
[2024-03-02 03:08] LABS: Basophils % (A) 0 %; Eosinophils # (A) 0.1 k/uL (0-0.7); Eosinophils % (A) 1 %; HCT 44.4 % (34.0-46.0); HGB 14.9 gm/dL (11.4-16.0); INR 0.9 (<1.2); Lymphocytes # (A) 1.7 k/uL (1.0-4.8); Lymphocytes % (A) 19 %; MCH 30.5 pg (25.0-35.0); MCHC 33.6 g/dL (31.0-37.0); MCV 90.8 fL (80.0-100.0); Mean Platelet Volume 8.8; Monocytes # (A) 0.7 k/uL (0-1.0); Monocytes % (A) 7 %; Neutrophils # (A) 6.6 k/uL (1.3-7.7); Neutrophils % (A) 72 %; Partial Thromboplastin Time 22.6 sec (22.0-30.0); Platelet Count 247 k/uL (150-450); Prothrombin Time 10.3 sec (10.0-12.5); RBC 4.88 m/uL (3.80-5.40); RDW 12.8 % (11.5-15.5); WBC 9.2 k/uL (3.8-10.6)
[2024-03-02 03:22] LABS: ALT 22 U/L (4-34); AST 26 U/L (14-36); African American GFR (CKD) >90 (>60 ml/min/1.73 sqM); Albumin 4.4 g/dL (3.5-5.0); Alkaline Phosphatase 46 U/L (38-126); Anion Gap 9 mmol/L; Blood Urea Nitrogen 10 mg/dL (7-17); Calcium 9.4 mg/dL (8.4-10.2); Carbon Dioxide 22 mmol/L (22-30); Chloride 108 mmol/L (98-107); Glucose 84 mg/dL (74-99); Non-African American GFR(CKD) 87 (>60 ml/min/1.73 sqM); Potassium 3.5 mmol/L (3.5-5.1); Sodium 139 mmol/L (137-145); Total Bilirubin 0.7 mg/dL (0.2-1.3); Total Protein 7.2 g/dL (6.3-8.2)
[2024-03-02 03:23] LABS: Appearance,Urine Clear (Clear); Bacteria,Urine Rare /hpf; Bilirubin,Urine Negative (Negative); Blood,Urine Negative (Negative); Color,Urine Yellow; Glucose,Urine (UA) Negative (Negative); Ketones,Urine Negative (Negative); Leukocyte Esterase,Urine Small (Negative); Mucus,Urine Many /hpf; Nitrite,Urine Negative (Negative); PH, Urine 5.5 (5.0-8.0); Protein,Urine Trace (Negative); RBC,Urine 2 /hpf (0-5); Specific Gravity,Urine 1.025 (1.001-1.035); Squamous Epithelial Cell,Urine 1 /hpf (0-4); Urobilinogen,Urine <2.0 mg/dL (<2.0); WBC,Urine 3 /hpf (0-5)
[2024-03-02 03:43] VITALS: RESP 18
--- NOTE | 2024-03-02 04:00 | ED ---
General Adult HPI - General Chief complaint: Shortness of Breath Stated complaint: SAIGE chest pain abd pain elevated heart rate Time Seen by Provider: 03/02/24 01:19 Source: patient, RN notes reviewed Mode of arrival: ambulatory Limitations: no limitations - History of Present Illness Initial comments: 33-year-old female with no prior cardiac history presenting to the ED with complaints of chest pain and shortness of breath. Patient states she was at [employer] when she started to feel a burning pain from the top of her abdomen going up the middle of her chest. Secondary to the symptoms reported that she started to feel short of breath. Symptoms lasted for 30 minutes and spontaneously resolved on their own. Patient is a non-smoker. Denies contraceptive use. No other complaints at this time. - Related Data Home Medications Medication Instructions Recorded Confirmed Albuterol Sulfate [Albuterol 2 puff PO RT-Q4H PRN 10/07/23 10/07/23 Sulfate Hfa] Escitalopram [Lexapro] 20 mg PO DAILY 10/07/23 10/07/23 Metoprolol Succinate (ER) [Toprol 25 mg PO DAILY 10/07/23 10/07/23 XL] Topiramate [Topamax] 50 mg PO DAILY 10/07/23 10/07/23 Previous Rx's Medication Instructions Recorded Amoxic-Pot Clav 875-125Mg 1 tab PO Q12HR 7 Days #14 tab 10/08/23 [Augmentin 875-125] HYDROcodone/APAP 5-325MG [[place] 1 tab PO Q6HR PRN 3 Days #12 tab 10/08/23 5-325] Famotidine [Pepcid] 10 mg PO BID PRN #30 tab 03/02/24 Allergies Allergy/AdvReac Type Severity Reaction Status Date / Time No Known Allergies Allergy Verified 12/27/23 14:39 Review of Systems ROS Statement: Those systems with pertinent positive or pertinent negative responses have been documented in the HPI. ROS Other: All systems not noted in ROS Statement are negative. Past Medical History Past Medical History: Asthma, Hypertension Additional Past Medical History / Comment(s): pancreatitis. pyloric stenosis, migraines History of Any Multi-Drug Resistant Organisms: MRSA Date of last positivie culture/infection: 2011 MDRO Source:: lt upper thigh area Past Surgical History: Appendectomy, Cholecystectomy, Orthopedic Surgery Additional Past Surgical History / Comment(s): lt finger tendon repair Past Anesthesia/Blood Transfusion Reactions: No Reported Reaction Past Psychological History: Anxiety, Depression Smoking Status: Vaper Past Alcohol Use History: None Reported Past Drug Use History: Marijuana, Methamphetamine - Past Family History Mother Family Medical History: Hypertension General Exam Limitations: no limitations General appearance: alert, in no apparent distress Eye exam: Present: normal appearance Neck exam: Present: normal inspection Respiratory exam: Present: normal lung sounds bilaterally Cardiovascular Exam: Present: regular rate GI/Abdominal exam: Present: soft, normal bowel sounds. Absent: distended, tende rness, guarding, rebound, rigid Neurological exam: Present: alert, oriented X3 Skin exam: Present: warm, dry Course Vital Signs 03/02/24 03/02/24 03/02/24 01:11 01:20 03:42 Temperature 97.6 F 97.8 F Pulse Rate 102 H 71 Respiratory 18 20 18 Rate Blood Pressure 130/93 113/75 O2 Sat by Pulse 97 99 Oximetry Medical Decision Making - Medical Decision Making Was pt. sent in by a medical professional or institution (Dr. PA, LANDFILL GAS TECHNICIAN, urgent care, hospital, or shelter...) When possible be specific @ -No Did you speak to anyone other than the patient for history (EMS, parent, family, police, friend...)? What history was obtained from this source @ -No Did you review nursing and triage notes (agree or disagree)? Why? @ -I reviewed and agree with nursing and triage notes Were old charts reviewed (outside hosp., previous admission, EMS record, old EKG, old radiological studies, urgent care reports/EKG's, shelter records)? Report findings @ -No old charts were reviewed Differential Diagnosis (chest pain, altered mental status, abdominal pain women, abdominal pain men, vaginal bleeding, weakness, fever, dyspnea, syncope, headache, dizziness, GI bleed, back pain, seizure, CVA, palpatations, mental health, musculoskeletal)? @ -Differential Chest Pain: Stable Angina, Unstable Angina, STEMI, NSTEMI Aortic Dissection, Pneumothorax, Musculoskeletal, Esophageal Spasm GERD, Cholecystitis, Pancreatitis, Zoster, this is not meant to be an all-inclusive list. EKG interpreted by me (3pts min.). @ -EKG interpreted me as a sinus rhythm at [address] or T wave changes. [place] 143, QRS 105, QT/QTc 353/395. X-rays interpreted by me (1pt min.). @ -Chest x-ray interpreted me which revealed no evidence of acute finding. CT interpreted by me (1pt min.). @ -None done U/S interpreted by me (1pt. min.). @ -None done What testing was considered but not performed or refused? (CT, X-rays, U/S, labs)? Why? @ -None What meds were considered but not given or refused? Why? @ -None Did you discuss the management of the patient with other professionals (professionals i.e. , PA, LANDFILL GAS TECHNICIAN, lab, RT, psych nurse, social work coordinator, medical assistant, teacher, ordnance officer, director case management)? Give summary @ -No Was smoking cessation discussed for >3mins.? @ -No Was critical care preformed (if so, how long)? @ -No Were there social determinants of health that impacted care today? How? (Homelessness, low income, unemployed, alcoholism, drug addiction, transportation, low edu. Level, literacy, decrease access to med. care, group home, rehab)? @ -No Was there de-escalation of care discussed even if they declined (Discuss DNR or withdrawal of care, Hospice)? DNR status @ -No What co-morbidities impacted this encounter? (DM, HTN, Smoking, COPD, CAD, Cancer, CVA, ARF, Chemo, Hep., AIDS, mental health diagnosis, sleep apnea, morbid obesity)? @ -None Was patient admitted / discharged? Hospital course, mention meds given and route, prescriptions, significant lab abnormalities, going to OR and other pertinent info. @ -Discharge 33-year-old female presented to the ED with complaints of chest pain. Patient states he was at work when she started to feel a burning pain in the epigastric region radiating up to the middle of her chest. Secondary to symptoms reported that she feels short of breath. Symptoms lasted for 30 minutes and spontaneously resolved on at home. Laboratory studies reviewed. Labs including CBC, CMP, D-dimer, serology panel unremarkable. Troponin undetectable. Urine did show some slight evidence of infection with small leukocyte Estrace, 3 white blood cells, rare white blood cell clumps, rare bacteria however at this time patient reports she is asymptomatic for UTI. Symptoms likely noncardiac in nature. Discharged home in stable condition with instructions to closely follow-up with her PCP. Symptoms may be related to GERD. Patient provided prescription for Pepcid. Discussed tricked return precautions with patient who verbalized agreement. Undiagnosed new problem with uncertain prognosis? @ -No Drug Therapy requiring intensive monitoring for toxicity (Heparin, Nitro, Ins ulin, Cardizem)? @ -No Were any procedures done? @ -No Diagnosis/symptom? @ -Chest pain Acute, or Chronic, or Acute on Chronic? @ -Acute Uncomplicated (without systemic symptoms) or Complicated (systemic symptoms)? @ -Uncomplicated Side effects of treatment? @ -No Exacerbation, Progression, or Severe Exacerbation? @ -No Poses a threat to life or bodily function? How? (Chest pain, USA, [place], pneumonia, PE, COPD, DKA, ARF, appy, cholecystitis, CVA, Diverticulitis, Homicidal, Suicidal, threat to staff... and all critical care pts) @ -No - Lab Data Result diagrams: 03/02/24 01:59 03/02/24 01:59 Lab Results 03/02/24 03/02/24 03/02/24 Range/Units 01:41 01:59 01:59 WBC 9.2 (3.8-10.6) k/uL RBC 4.88 (3.80-5.40) m/uL Hgb 14.9 (11.4-16.0) gm/dL Hct 44.4 (34.0-46.0) % MCV 90.8 (80.0-100.0) fL MCH 30.5 (25.0-35.0) pg MCHC 33.6 (31.0-37.0) g/dL RDW 12.8 (11.5-15.5) % Plt Count 247 (150-450) k/uL MPV 8.8 Neutrophils % 72 % Lymphocytes % 19 % Monocytes % 7 % Eosinophils % 1 % Basophils % 0 % Neutrophils # 6.6 (1.3-7.7) k/uL Lymphocytes # 1.7 (1.0-4.8) k/uL Monocytes # 0.7 (0-1.0) k/uL Eosinophils # 0.1 (0-0.7) k/uL Basophils # 0.0 (0-0.2) k/uL PT 10.3 (10.0-12.5) sec INR 0.9 (<1.2) APTT 22.6 (22.0-30.0) sec D-Dimer 0.53 (<0.60) mg/L FEU Sodium (137-145) mmol/L Potassium (3.5-5.1) mmol/L Chloride (98-107) mmol/L Carbon Dioxide (22-30) mmol/L Anion Gap mmol/L BUN (7-17) mg/dL Creatinine (0.52-1.04) mg/dL Est GFR (CKD-EPI)AfAm (>60 ml/min/1.73 sqM) Est GFR (CKD-EPI)NonAf (>60 ml/min/1.73 sqM) Glucose (74-99) mg/dL Plasma Lactic Acid [place] (0.7-2.0) mmol/L Calcium (8.4-10.2) mg/dL Total Bilirubin (0.2-1.3) mg/dL AST (14-36) U/L ALT (4-34) U/L Alkaline Phosphatase (38-126) U/L Troponin I (0.000-0.034) ng/mL Total Protein (6.3-8.2) g/dL Albumin (3.5-5.0) g/dL Urine Color Urine Appearance (Clear) Urine pH (5.0-8.0) Ur Specific [place] (1.001-1.035) Urine Protein (Negative) Urine Glucose (UA) (Negative) Urine Ketones (Negative) Urine Blood (Negative) Urine Nitrite (Negative) Urine Bilirubin (Negative) Urine Urobilinogen (<2.0) mg/dL Ur Leukocyte Esterase (Negative) Urine RBC (0-5) /hpf Urine WBC (0-5) /hpf Urine WBC Clumps (None) /hpf Ur Squamous Epith Cells (0-4) /hpf Urine Bacteria (None) /hpf Urine Mucus (None) /hpf Urine HCG, Qual (Not Detectd) Influenza Type A (PCR) Not Detected (Not Detectd) Influenza Type B (PCR) Not Detected (Not Detectd) RSV (PCR) Not Detected (Not Detectd) SARS-CoV-2 (PCR) Not Detected (Not Detectd) 03/02/24 03/02/24 03/02/24 Range/Units 01:59 01:59 01:59 WBC (3.8-10.6) k/uL RBC (3.80-5.40) m/uL Hgb (11.4-16.0) gm/dL Hct (34.0-46.0) % MCV (80.0-100.0) fL MCH (25.0-35.0) pg MCHC (31.0-37.0) g/dL RDW (11.5-15.5) % Plt Count (150-450) k/uL MPV Neutrophils % % Lymphocytes % % Monocytes % % Eosinophils % % Basophils % % Neutrophils # (1.3-7.7) k/uL Lymphocytes # (1.0-4.8) k/uL Monocytes # (0-1.0) k/uL Eosinophils # (0-0.7) k/uL Basophils # (0-0.2) k/uL PT (10.0-12.5) sec INR (<1.2) APTT (22.0-30.0) sec D-Dimer (<0.60) mg/L FEU Sodium 139 (137-145) mmol/L Potassium 3.5 (3.5-5.1) mmol/L Chloride 108 H (98-107) mmol/L Carbon Dioxide 22 (22-30) mmol/L Anion Gap 9 mmol/L BUN 10 (7-17) mg/dL Creatinine 0.87 (0.52-1.04) mg/dL Est GFR (CKD-EPI)AfAm >90 (>60 ml/min/1.73 sqM) Est GFR (CKD-EPI)NonAf 87 (>60 ml/min/1.73 sqM) Glucose 84 (74-99) mg/dL Plasma Lactic Acid [place] (0.7-2.0) mmol/L Calcium 9.4 (8.4-10.2) mg/dL Total Bilirubin 0.7 (0.2-1.3) mg/dL AST 26 (14-36) U/L ALT 22 (4-34) U/L Alkaline Phosphatase 46 (38-126) U/L Troponin I <0.012 (0.000-0.034) ng/mL Total Protein 7.2 (6.3-8.2) g/dL Albumin 4.4 (3.5-5.0) g/dL Urine Color Yellow Urine Appearance Clear (Clear) Urine pH 5.5 (5.0-8.0) Ur Specific [place] 1.025 (1.001-1.035) Urine Protein Trace H (Negative) Urine Glucose (UA) Negative (Negative) Urine Ketones Negative (Negative) Urine Blood Negative (Negative) Urine Nitrite Negative (Negative) Urine Bilirubin Negative (Negative) Urine Urobilinogen <2.0 (<2.0) mg/dL Ur Leukocyte Esterase Small H (Negative) Urine RBC 2 (0-5) /hpf Urine WBC 3 (0-5) /hpf Urine WBC Clumps Rare H (None) /hpf Ur Squamous Epith Cells 1 (0-4) /hpf Urine Bacteria Rare H (None) /hpf Urine Mucus Many H (None) /hpf Urine HCG, Qual (Not Detectd) Influenza Type A (PCR) (Not Detectd) Influenza Type B (PCR) (Not Detectd) RSV (PCR) (Not Detectd) SARS-CoV-2 (PCR) (Not Detectd) 03/02/24 03/02/24 Range/Units 01:59 02:00 WBC (3.8-10.6) k/uL RBC (3.80-5.40) m/uL Hgb (11.4-16.0) gm/dL Hct (34.0-46.0) % MCV (80.0-100.0) fL MCH (25.0-35.0) pg MCHC (31.0-37.0) g/dL RDW (11.5-15.5) % Plt Count (150-450) k/uL MPV Neutrophils % % Lymphocytes % % Monocytes % % Eosinophils % % Basophils % % Neutrophils # (1.3-7.7) k/uL Lymphocytes # (1.0-4.8) k/uL Monocytes # (0-1.0) k/uL Eosinophils # (0-0.7) k/uL Basophils # (0-0.2) k/uL PT (10.0-12.5) sec INR (<1.2) APTT (22.0-30.0) sec D-Dimer (<0.60) mg/L FEU Sodium (137-145) mmol/L Potassium (3.5-5.1) mmol/L Chloride (98-107) mmol/L Carbon Dioxide (22-30) mmol/L Anion Gap mmol/L BUN (7-17) mg/dL Creatinine (0.52-1.04) mg/dL Est GFR (CKD-EPI)AfAm (>60 ml/min/1.73 sqM) Est GFR (CKD-EPI)NonAf (>60 ml/min/1.73 sqM) Glucose (74-99) mg/dL Plasma Lactic Acid [place] 1.0 (0.7-2.0) mmol/L Calcium (8.4-10.2) mg/dL Total Bilirubin (0.2-1.3) mg/dL AST (14-36) U/L ALT (4-34) U/L Alkaline Phosphatase (38-126) U/L Troponin I (0.000-0.034) ng/mL Total Protein (6.3-8.2) g/dL Albumin (3.5-5.0) g/dL Urine Color Urine Appearance (Clear) Urine pH (5.0-8.0) Ur Specific [place] (1.001-1.035) Urine Protein (Negative) Urine Glucose (UA) (Negative) Urine Ketones (Negative) Urine Blood (Negative) Urine Nitrite (Negative) Urine Bilirubin (Negative) Urine Urobilinogen (<2.0) mg/dL Ur Leukocyte Esterase (Negative) Urine RBC (0-5) /hpf Urine WBC (0-5) /hpf Urine WBC Clumps (None) /hpf Ur Squamous Epith Cells (0-4) /hpf Urine Bacteria (None) /hpf Urine Mucus (None) /hpf Urine HCG, Qual Not Detected (Not Detectd) Influenza Type A (PCR) (Not Detectd) Influenza Type B (PCR) (Not Detectd) RSV (PCR) (Not Detectd) SARS-CoV-2 (PCR) (Not Detectd) Disposition Clinical Impression: Chest pain Disposition: HOME SELF-CARE Condition: Good Instructions (If sedation given, give patient instructions): Chest Pain (ED), GERD (Gastroesophageal Reflux Disease) (ED) Additional Instructions: Please return to the Emergency Department if symptoms worsen or any other concerns. Please follow-up with your primary care provider. Prescriptions: Famotidine [Pepcid] 10 mg PO BID PRN #30 tab PRN Reason: Heartburn Is patient prescribed a controlled substance at d/c from ED?: No Referrals: Rom Easton III, MD [Primary Care Provider] - 1-2 days Time of Disposition: 04:11
[2024-03-02 04:24] VITALS: BP 115/77; PULSE 74; TEMP 97.9
--- NOTE | 2024-03-02 05:06 | XR ---
EXAM: XR Chest, 2 Views CLINICAL HISTORY: ITS.REASON XR Reason: dyspnea TECHNIQUE: Frontal and lateral views of the chest. COMPARISON: 2 views of the chest January 19, 2024 IMPRESSION: No acute cardiopulmonary abnormality.
== END 2024-03-02 04:42 | disposition home or self-care (01) ==
LOC: EC 01:07
DX: R07.9 Chest pain, unspecified (principal); F17.290 Nicotine dependence, other tobacco product, uncomplicated
CPT/HCPCS: 36415; 71046; 80053; 81001; 81025; 83605; 84484; 85025; 85379; 85610; 85730; 87636; 93005; 99285

== ENCOUNTER 2024-06-07 15:29 | Emergency (ER) | payer OTHER ==
[2024-06-07 15:46] VITALS: TEMP 98.6
--- NOTE | 2024-06-07 16:09 | ED ---
URI HPI - General Chief Complaint: Upper Respiratory Infection Stated Complaint: abn labs Time Seen by Provider: 06/07/24 16:08 Source: patient, RN notes reviewed Mode of arrival: ambulatory Limitations: no limitations - History of Present Illness Initial Comments: 33-year-old female presenting to the ER with a chief complaint of cough and shortness of breath. Patient states for the past 3 days she has been feeling ill and weak. She reports mild nausea and lightheadedness. She states she has been having chills but denies known fevers as she has not taken her temperature. She admits to vaping. Denies any chest pain, abdominal pain, constipation/diarrhea, urinary complaints or peripheral edema. Patient has not taken anything for symptoms at this time. - Related Data Home Medications Medication Instructions Recorded Confirmed Albuterol Sulfate [Albuterol 2 puff PO RT-Q4H PRN 10/07/23 10/07/23 Sulfate Hfa] Escitalopram [Lexapro] 20 mg PO DAILY 10/07/23 10/07/23 Metoprolol Succinate (ER) [Toprol 25 mg PO DAILY 10/07/23 10/07/23 XL] Topiramate [Topamax] 50 mg PO DAILY 10/07/23 10/07/23 Previous Rx's Medication Instructions Recorded Amoxic-Pot Clav 875-125Mg 1 tab PO Q12HR 7 Days #14 tab 10/08/23 [Augmentin 875-125] HYDROcodone/APAP 5-325MG [[place] 1 tab PO Q6HR PRN 3 Days #12 tab 10/08/23 5-325] Famotidine [Pepcid] 10 mg PO BID PRN #30 tab 03/02/24 Allergies Allergy/AdvReac Type Severity Reaction Status Date / Time No Known Allergies Allergy Verified 06/07/24 15:46 Review of Systems ROS Statement: Those systems with pertinent positive or pertinent negative responses have been documented in the HPI. ROS Other: All systems not noted in ROS Statement are negative. Past Medical History Past Medical History: Asthma, Hypertension Additional Past Medical History / Comment(s): pancreatitis. pyloric stenosis, migraines History of Any Multi-Drug Resistant Organisms: MRSA Date of last positivie culture/infection: 2011 MDRO Source:: lt upper thigh area Past Surgical History: Appendectomy, Cholecystectomy, Orthopedic Surgery Additional Past Surgical History / Comment(s): lt finger tendon repair Past Anesthesia/Blood Transfusion Reactions: No Reported Reaction Past Psychological History: Anxiety, Depression Smoking Status: Vaper Past Alcohol Use History: None Reported Past Drug Use History: Marijuana, Methamphetamine - Past Family History Mother Family Medical History: Hypertension General Exam Limitations: no limitations General appearance: alert, in no apparent distress ENT exam: Present: normal exam, normal oropharynx, mucous membranes moist, TM's normal bilaterally Neck exam: Present: normal inspection. Absent: tenderness, meningismus, lymphadenopathy Respiratory exam: Present: normal lung sounds bilaterally. Absent: respiratory distress, wheezes, rales, rhonchi, stridor Cardiovascular Exam: Present: regular rate, normal rhythm, normal heart sounds Neurological exam: Present: alert, oriented X3, CN II-XII intact Skin exam: Present: warm, dry, intact, normal color. Absent: rash Course Vital Signs 06/07/24 15:38 Temperature 98.6 F Pulse Rate 104 H Respiratory 22 Rate Blood Pressure 143/92 O2 Sat by Pulse 97 Oximetry Medical Decision Making - Medical Decision Making Was pt. sent in by a medical professional or institution (, PA, COORDINATE MEASURING MACHINE OPERATOR, urgent care, hospital, or penitentiary...) When possible be specific @ -No Did you speak to anyone other than the patient for history (EMS, parent, family, police, friend...)? What history was obtained from this source @ -No Did you review nursing and triage notes (agree or disagree)? Why? @ -I reviewed and agree with nursing and triage notes Were old charts reviewed (outside hosp., previous admission, EMS record, old EKG, old radiological studies, urgent care reports/EKG's, penitentiary records)? Report findings @ -No old charts were reviewed Differential Diagnosis (chest pain, altered mental status, abdominal pain women, abdominal pain men, vaginal bleeding, weakness, fever, dyspnea, syncope, headache, dizziness, GI bleed, back pain, seizure, CVA, palpatations, mental health, musculoskeletal)? @ -COVID, RSV, influenza, viral sinusitis, pneumonia this list is not meant to be all-inclusive EKG interpreted by me (3pts min.). @ -None done X-rays interpreted by me (1pt min.). @ -CXR negative for acute cardiopulmonary process. CT interpreted by me (1pt min.). @ -None done U/S interpreted by me (1pt. min.). @ -None done What testing was considered but not performed or refused? (CT, X-rays, U/S, labs)? Why? @ -None What meds were considered but not given or refused? Why? @ -None Did you discuss the management of the patient with other professionals (professionals i.e. Dr., PA, COORDINATE MEASURING MACHINE OPERATOR, lab, RT, psych nurse, sexual assault social worker, urgent care physician assistant, teacher, police or patrol park officer, pillowcase turner)? Give summary @ -No Was smoking cessation discussed for >3mins.? @ -I discussed smoking cessation for greater than 3 minutes. The risk of smoking were discussed with the patient including but not limited to risks of cancer, stroke, coronary artery disease and COPD. Also discussed with patient were multiple methods of quitting smoking. Lastly we discussed the financial cost of smoking. Was critical care preformed (if so, how long)? @ -No Were there social determinants of health that impacted care today? How? (Homelessness, low income, unemployed, alcoholism, drug addiction, transportation, low edu. Level, literacy, decrease access to med. care, group home, rehab)? @ -No Was there de-escalation of care discussed even if they declined (Discuss DNR or withdrawal of care, Hospice)? DNR status @ -No What co-morbidities impacted this encounter? (DM, HTN, Smoking, COPD, CAD, Cancer, CVA, ARF, Chemo, Hep., AIDS, mental health diagnosis, sleep apnea, morbid obesity)? @ -None Was patient admitted / discharged? Hospital course, mention meds given and route, prescriptions, significant lab abnormalities, going to OR and other pertinent info. @ -Discharge. 33-year-old female presenting to the ER with a chief complaint of cough and congestion x 3 days. History and physical exam completed. Vitals within normal limits. Patient in no signs of acute distress exam benign. Viral swabs obtained negative. Chest x-ray negative. Patient received p.o. Tylenol for symptom control in ER. Upon reevaluation, patient sleeping in exam room no signs of acute distress. Patient reporting improvement of symptoms. Symptoms believed to be viral in nature. Conservative treatment options discussed. Strict return parameters discussed. Patient discharged in stable condition with follow-up to PCP. Patient verbally expressed understanding and agreement with care plan. Case discussed with ED attending, Dr. Mathru. Undiagnosed new problem with uncertain prognosis? @ -No Drug Therapy requiring intensive monitoring for toxicity (Heparin, Nitro, Insulin, Cardizem)? @ -No Were any procedures done? @ -No Diagnosis/symptom? @ -Viral sinusitis/viral illness Acute, or Chronic, or Acute on Chronic? @ -Acute Uncomplicated (without systemic symptoms) or Complicated (systemic symptoms)? @ -Uncomplicated Side effects of treatment? @ -No Exacerbation, Progression, or Severe Exacerbation? @ -No Poses a threat to life or bodily function? How? (Chest pain, [place], [place], pneumonia, PE, COPD, DKA, ARF, appy, cholecystitis, CVA, Diverticulitis, Homicidal, Suicidal, threat to staff... and all critical care pts) @ -No - Lab Data Lab Results 06/07/24 Range/Units 15:46 Influenza Type A (PCR) Not Detected (Not Detectd) Influenza Type B (PCR) Not Detected (Not Detectd) RSV (PCR) Not Detected (Not Detectd) SARS-CoV-2 (PCR) Not Detected (Not Detectd) - Radiology Data Radiology results: report reviewed, image reviewed Disposition Clinical Impression: Viral infection, Acute viral sinusitis Disposition: HOME SELF-CARE Condition: Stable Additional Instructions: I recommend [id number] ibuprofen and Tylenol for symptom control. Follow- up with PCP. Return to the ER for any new or worsening concerns. Is patient prescribed a controlled substance at d/c from ED?: No Referrals: Rom Easton III, MD [Primary Care Provider] - 1-2 days Time of Disposition: 17:26
[2024-06-07] MEDS: ACETAMINOPHEN TAB 500 MG TAB PO STA (16:26)
--- NOTE | 2024-06-07 16:52 | XR ---
EXAMINATION TYPE: XR chest 2V DATE OF EXAM: 06/07/2024 4:30 PM CLINICAL INDICATION: Female, 33 years old with history of cough; COMPARISON: Chest radiographs from 03/02/2024 TECHNIQUE: XR chest 2V Frontal view of the chest. FINDINGS: Lungs/Pleura: There is no evidence of pleural effusion, focal consolidation, or pneumothorax. Pulmonary vascularity: Unremarkable. Heart/mediastinum: Cardiomediastinal silhouette is unremarkable. Musculoskeletal: No acute osseous pathology. IMPRESSION: No acute cardiopulmonary disease/process. [facility], Workstation: [place] [id number], 06/07/2024 4:50 PM
[2024-06-07 18:00] VITALS: BP 138/81; PULSE 91; RESP 20
== END 2024-06-07 17:55 | disposition home or self-care (01) ==
LOC: EC 15:29
CPT/HCPCS: 71046; 87636; 99284; 99285; 99406

== ENCOUNTER 2024-06-14 15:50 | Emergency (ER) | payer OTHER ==
--- NOTE | 2024-06-14 16:14 | ED ---
Headache HPI - General Chief Complaint: Headache Stated Complaint: migraine,chest burning Time Seen by Provider: 06/14/24 15:56 Source: RN notes reviewed, old records reviewed Mode of arrival: ambulatory Limitations: no limitations - History of Present Illness Initial Comments: This is a 33-year-old female to the ER for evaluation of headache presents today for evaluation regards to severe headache migraine headache classic migraine headache which she does come to the ER for every couple months. Patient also complaining of chest pain and shortness of breath, patient does have history of using a vape but no other complaints MD Complaint: headache, "migraine" -: days(s) Onset Description: gradual Severity: severe Severity scale (1-10): 10 Quality: aching, throbbing, pulsatile Consistency: constant Improves With: nothing Worsens With: none Context: recent URI Associated Symptoms: weakness Other Symptoms: chest pain Treatments Prior to Arrival: none - Related Data Home Medications Medication Instructions Recorded Confirmed Albuterol Sulfate [Albuterol 2 puff PO RT-Q4H PRN 10/07/23 10/07/23 Sulfate Hfa] Escitalopram [Lexapro] 20 mg PO DAILY 10/07/23 10/07/23 Metoprolol Succinate (ER) [Toprol 25 mg PO DAILY 10/07/23 10/07/23 XL] Topiramate [Topamax] 50 mg PO DAILY 10/07/23 10/07/23 Previous Rx's Medication Instructions Recorded Amoxic-Pot Clav 875-125Mg 1 tab PO Q12HR 7 Days #14 tab 10/08/23 [Augmentin 875-125] HYDROcodone/APAP 5-325MG [[place] 1 tab PO Q6HR PRN 3 Days #12 tab 10/08/23 5-325] Famotidine [Pepcid] 10 mg PO BID PRN #30 tab 03/02/24 Allergies Allergy/AdvReac Type Severity Reaction Status Date / Time No Known Allergies Allergy Verified 06/14/24 15:54 Review of Systems ROS Statement: Those systems with pertinent positive or pertinent negative responses have been documented in the HPI. ROS Other: All systems not noted in ROS Statement are negative. Past Medical History Past Medical History: Asthma, Hypertension Additional Past Medical History / Comment(s): pancreatitis. pyloric stenosis, migraines History of Any Multi-Drug Resistant Organisms: MRSA Date of last positivie culture/infection: 2012 MDRO Source:: lt upper thigh area Past Surgical History: Appendectomy, Cholecystectomy, Orthopedic Surgery Additional Past Surgical History / Comment(s): lt finger tendon repair Past Anesthesia/Blood Transfusion Reactions: No Reported Reaction Past Psychological History: Anxiety, Depression Smoking Status: Vaper Past Alcohol Use History: None Reported Past Drug Use History: Marijuana, Methamphetamine - Past Family History Mother Family Medical History: Hypertension General Exam Limitations: no limitations General appearance: alert, in no apparent distress Head exam: Present: atraumatic, normocephalic, normal inspection Eye exam: Present: normal appearance, PERRL, EOMI. Absent: scleral icterus, con junctival injection, periorbital swelling ENT exam: Present: normal exam, mucous membranes moist Neck exam: Present: normal inspection. Absent: tenderness, meningismus, lymphadenopathy Respiratory exam: Present: normal lung sounds bilaterally. Absent: respiratory distress, wheezes, rales, rhonchi, stridor Cardiovascular Exam: Present: regular rate, normal rhythm, normal heart sounds. Absent: systolic murmur, diastolic murmur, rubs, gallop, clicks GI/Abdominal exam: Present: soft, normal bowel sounds. Absent: distended, tenderness, guarding, rebound, rigid Extremities exam: Present: normal inspection, full ROM, normal capillary refill. Absent: tenderness, pedal edema, joint swelling, calf tenderness Back exam: Present: normal inspection Neurological exam: Present: alert, oriented X3, CN II-XII intact Psychiatric exam: Present: normal affect, normal mood Skin exam: Present: warm, dry, intact, normal color. Absent: rash Course Vital Signs 06/14/24 06/14/24 06/14/24 15:52 17:31 17:41 Temperature 98.2 F Pulse Rate 85 82 85 Respiratory 17 Rate Blood Pressure 123/89 O2 Sat by Pulse 97 Oximetry - Reevaluation(s) Reevaluation #1: 06/14/24 16:28 Medical records reviewed Reevaluation #2: 06/14/24 17:54 Patient symptoms unchanged Reevaluation #3: 06/14/24 17:54 Patient informed of results and questions answered Reevaluation #4: Was pt. sent in by a medical professional or institution (, PA, SPEECH THERAPY TEACHER, urgent care, hospital, or penitentiary...) When possible be specific @ -no Did you speak to anyone other than the patient for history (EMS, parent, family, police, friend...)? What history was obtained from this source @ -no Did you review nursing and triage notes (agree or disagree)? Why? @ -agree Are old charts reviewed (outside hosp., previous admission, EMS record, old EKG, old radiological studies, urgent care reports/EKG's, penitentiary records)? Report findings @ -yes Differential Diagnosis (chest pain, altered mental status, abdominal pain women, abdominal pain men, vaginal bleeding, weakness, fever, dyspnea, syncope, headache, dizziness, GI bleed, back pain, seizure, CVA, palpatations, mental health, musculoskeletal)? @ -prior EKG interpreted by me (3pts min.). @ -yes X-rays interpreted by me (1pt min.). @ -yes negative for acute disease CT interpreted by me (1pt min.). @ -no U/S interpreted by me (1pt. min.). @ -no What testing was considered but not performed or refused? (CT, X-rays, U/S, labs)? Why? @ -none What meds were considered but not given or refused? Why? @ -none Did you discuss the management of the patient with other professionals (professionals i.e. , PA, SPEECH THERAPY TEACHER, lab, RT, psych nurse, social science analyst, cemetery counselor, teacher, consumer safety officer, telephonic case manager)? Give summary @ -no Was smoking cessation discussed for >3mins.? @ -no Was critical care preformed (if so, how long)? @ -no Were there social determinants of health that impacted care today? How? (Homelessness, low income, unemployed, alcoholism, drug addiction, transportation, low edu. Level, literacy, decrease access to med. care, prison, rehab)? @ -none Was there de-escalation of care discussed even if they declined (Discuss DNR or withdrawal of care, Hospice)? DNR status @ -no What co-morbidities impacted this encounter? (DM, HTN, Smoking, COPD, CAD, Cancer, CVA, ARF, Chemo, Hep., AIDS, mental health diagnosis, sleep apnea, morbid obesity)? @ -none Was patient admitted / discharged? Hospital course, mention meds given and route, prescriptions, significant lab abnormalities, going to OR and other pertinent info. @ - Undiagnosed new problem with uncertain prognosis? @ -no Drug Therapy requiring intensive monitoring for toxicity (Heparin, Nitro, Insulin, Cardizem)? @ -no Were any procedures done? @ -no Diagnosis/symptom? @ - Acute, or Chronic, or Acute on Chronic? @ -Acute Uncomplicated (without systemic symptoms) or Complicated (systemic symptoms)? @ -Complicated Side effects of treatment? @ -no Exacerbation, Progression, or Severe Exacerbation? @ -exacerbation Poses a threat to life or bodily function? How? (Chest pain, [place], [place], pneumonia, PE, COPD, DKA, ARF, appy, cholecystitis, CVA, Diverticulitis, Homicidal, Suicidal, threat to staff... and all critical care pts) @ -yes Reevaluation #5: Differential Headache: Migraine, tension, cluster, carbon monoxide, central venous thrombosis, pension karma temporal arteritis, acute closure glaucoma, intercranial hemorrhage, mastoiditis, sinusitis, head injury, this is not meant to be an all-inclusive list. Medical Decision Making - Medical Decision Making 33 female to ER for evaluation of headache today. No acute cause of headache found. Also chest pain with normal lab testing and normal x-ray. Patient can be discharged home - Lab Data Result diagrams: 06/14/24 16:49 06/14/24 16:49 Lab Results 06/14/24 06/14/24 06/14/24 Range/Units 16:49 16:49 16:49 WBC 7.8 (3.8-10.6) k/uL RBC 4.79 (3.80-5.40) m/uL Hgb 14.4 (11.4-16.0) gm/dL Hct 42.9 (34.0-46.0) % MCV 89.5 (80.0-100.0) fL MCH 29.9 (25.0-35.0) pg MCHC 33.5 (31.0-37.0) g/dL RDW 12.5 (11.5-15.5) % Plt Count 234 (150-450) k/uL MPV 8.5 Neutrophils % 71 % Lymphocytes % 21 % Monocytes % 5 % Eosinophils % 2 % Basophils % 0 % Neutrophils # 5.5 (1.3-7.7) k/uL Lymphocytes # 1.6 (1.0-4.8) k/uL Monocytes # 0.4 (0-1.0) k/uL Eosinophils # 0.1 (0-0.7) k/uL Basophils # 0.0 (0-0.2) k/uL PT 10.3 (10.0-12.5) sec INR 0.9 (<1.2) APTT 25.6 (22.0-30.0) sec D-Dimer 0.32 (<0.60) mg/L FEU Sodium 137 (137-145) mmol/L Potassium 4.0 (3.5-5.1) mmol/L Chloride 107 (98-107) mmol/L Carbon Dioxide 24 (22-30) mmol/L Anion Gap 6 mmol/L BUN 11 (7-17) mg/dL Creatinine 0.66 (0.52-1.04) mg/dL Est GFR (CKD-EPI)AfAm >90 (>60 ml/min/1.73 sqM) Est GFR (CKD-EPI)NonAf >90 (>60 ml/min/1.73 sqM) Glucose 77 (74-99) mg/dL Calcium 9.0 (8.4-10.2) mg/dL Phosphorus 3.8 (2.5-4.5) mg/dL Magnesium 2.0 (1.6-2.3) mg/dL Total Bilirubin 0.7 (0.2-1.3) mg/dL AST 24 (14-36) U/L ALT 18 (4-34) U/L Alkaline Phosphatase 42 (38-126) U/L Troponin I (0.000-0.034) ng/mL NT-Pro-B Natriuret Pep 343 pg/mL Total Protein 6.5 (6.3-8.2) g/dL Albumin 3.8 (3.5-5.0) g/dL 06/14/24 Range/Units 16:49 WBC (3.8-10.6) k/uL RBC (3.80-5.40) m/uL Hgb (11.4-16.0) gm/dL Hct (34.0-46.0) % MCV (80.0-100.0) fL MCH (25.0-35.0) pg MCHC (31.0-37.0) g/dL RDW (11.5-15.5) % Plt Count (150-450) k/uL MPV Neutrophils % % Lymphocytes % % Monocytes % % Eosinophils % % Basophils % % Neutrophils # (1.3-7.7) k/uL Lymphocytes # (1.0-4.8) k/uL Monocytes # (0-1.0) k/uL Eosinophils # (0-0.7) k/uL Basophils # (0-0.2) k/uL PT (10.0-12.5) sec INR (<1.2) APTT (22.0-30.0) sec D-Dimer (<0.60) mg/L FEU Sodium (137-145) mmol/L Potassium (3.5-5.1) mmol/L Chloride (98-107) mmol/L Carbon Dioxide (22-30) mmol/L Anion Gap mmol/L BUN (7-17) mg/dL Creatinine (0.52-1.04) mg/dL Est GFR (CKD-EPI)AfAm (>60 ml/min/1.73 sqM) Est GFR (CKD-EPI)NonAf (>60 ml/min/1.73 sqM) Glucose (74-99) mg/dL Calcium (8.4-10.2) mg/dL Phosphorus (2.5-4.5) mg/dL Magnesium (1.6-2.3) mg/dL Total Bilirubin (0.2-1.3) mg/dL AST (14-36) U/L ALT (4-34) U/L Alkaline Phosphatase (38-126) U/L Troponin I <0.012 (0.000-0.034) ng/mL NT-Pro-B Natriuret Pep pg/mL Total Protein (6.3-8.2) g/dL Albumin (3.5-5.0) g/dL - Radiology Data Radiology results: report reviewed (Chest x-ray is negative for acute disease), image reviewed Disposition Clinical Impression: Headache, Chest pain, Migraine headache Disposition: HOME SELF-CARE Condition: Good Instructions (If sedation given, give patient instructions): Acute Headache (ED) Is patient prescribed a controlled substance at d/c from ED?: No Referrals: Rom Easton III, MD [Primary Care Provider] - 1-2 days Time of Disposition: 18:00
[2024-06-14 17:04] LABS: Basophils % (A) 0 %; Eosinophils # (A) 0.1 k/uL (0-0.7); Eosinophils % (A) 2 %; HCT 42.9 % (34.0-46.0); HGB 14.4 gm/dL (11.4-16.0); Lymphocytes # (A) 1.6 k/uL (1.0-4.8); Lymphocytes % (A) 21 %; MCH 29.9 pg (25.0-35.0); MCHC 33.5 g/dL (31.0-37.0); MCV 89.5 fL (80.0-100.0); Mean Platelet Volume 8.5; Monocytes # (A) 0.4 k/uL (0-1.0); Monocytes % (A) 5 %; Neutrophils # (A) 5.5 k/uL (1.3-7.7); Neutrophils % (A) 71 %; Platelet Count 234 k/uL (150-450); RBC 4.79 m/uL (3.80-5.40); RDW 12.5 % (11.5-15.5); WBC 7.8 k/uL (3.8-10.6)
[2024-06-14 17:18] LABS: ALT 18 U/L (4-34); AST 24 U/L (14-36); African American GFR (CKD) >90 (>60 ml/min/1.73 sqM); Albumin 3.8 g/dL (3.5-5.0); Alkaline Phosphatase 42 U/L (38-126); Anion Gap 6 mmol/L; Blood Urea Nitrogen 11 mg/dL (7-17); Carbon Dioxide 24 mmol/L (22-30); Chloride 107 mmol/L (98-107); Glucose 77 mg/dL (74-99); Non-African American GFR(CKD) >90 (>60 ml/min/1.73 sqM); Phosphorus 3.8 mg/dL (2.5-4.5); Sodium 137 mmol/L (137-145); Total Bilirubin 0.7 mg/dL (0.2-1.3); Total Protein 6.5 g/dL (6.3-8.2)
--- NOTE | 2024-06-14 17:18 | XR ---
EXAMINATION TYPE: XR chest 2V DATE OF EXAM: 06/14/2024 4:56 PM CLINICAL INDICATION: Female, 33 years old with history of Weakness; [facility] COMPARISON: Chest radiographs from 06/07/2024 TECHNIQUE: XR chest 2V Frontal view of the chest. FINDINGS: Lungs/Pleura: There is no evidence of pleural effusion, focal consolidation, or pneumothorax. Pulmonary vascularity: Unremarkable. Heart/mediastinum: Cardiomediastinal silhouette is unremarkable. Musculoskeletal: No acute osseous pathology. IMPRESSION: No acute cardiopulmonary disease/process. [facility] Parmjit Tamez, , 06/14/2024 5:15 PM
[2024-06-14 17:24] LABS: INR 0.9 (<1.2); Partial Thromboplastin Time 25.6 sec (22.0-30.0); Prothrombin Time 10.3 sec (10.0-12.5)
[2024-06-14] MEDS: SODIUM CHLORIDE 0.9% 1,000 ML IV STA (17:24)
[2024-06-14 17:26] LABS: NT-Pro-B-Type Natriuretic Pept 343 pg/mL
[2024-06-14] MEDS: KETOROLAC 15 MG/ML 1 ML VIAL IVP STA (17:26)
[2024-06-14] MEDS: diphenhydrAMINE 50 MG/ML 1 ML VIAL IVP STA (17:28)
[2024-06-14] MEDS: IPRATROPIUM-ALBUTEROL 3 ML NEB INHALATION STA (17:31)
[2024-06-14] MEDS: PROCHLORPERAZINE INJ 10 MG/2 ML VIAL IVP STA (17:38)
[2024-06-14] MEDS: methylPREDNISolone SOD SUCCIN 250 MG in SODIUM CHLORIDE 0.9% 100 ML IVPB STA (17:42)
[2024-06-14 18:43] VITALS: BP 122/88; PULSE 72; RESP 22; TEMP 97.4
== END 2024-06-14 18:46 | disposition home or self-care (01) ==
LOC: EC 15:50
CPT/HCPCS: 36415; 71046; 80053; 83735; 83880; 84100; 84484; 85025; 85379; 85610; 85730; 94640; 96361; 96365; 96375; 99284

== ENCOUNTER 2025-02-09 01:43 | Emergency (ER) | payer OTHER ==
--- NOTE | 2025-02-09 02:24 | ED ---
Syncope HPI - General Chief Complaint: Syncope Stated Complaint: head injury after fall Time Seen by Provider: 02/09/25 01:53 Source: patient, RN notes reviewed Mode of arrival: wheelchair Limitations: no limitations - History of Present Illness Initial Comments: This is a 34-year-old female who presents to the emergency department for a syncopal episode. Patient was sleeping and felt like she had a cramp in her abdomen. She went to use the bathroom and states that she had diarrhea. While she was having a bowel movement, states that she started to sweat. She got up from the toilet and went to walk down the hallway so she could go back to bed. H owever, she passed out in the hallway and hit her head. States that she woke up on the floor. Nobody witnessed this, however the individual who lives on the floor below her heard her fall. States that this did happen to her once a month ago, however she was not evaluated at that time. Currently has a headache and neck pain from hitting her head, but states that she otherwise feels fine. Denies any additional abdominal cramping. Denies any chest pain, shortness of breath, nausea, or vomiting. MD Complaint: loss of consciousness - Related Data Home Medications Medication Instructions Recorded Confirmed Albuterol Sulfate [Albuterol 2 puff PO RT-Q4H PRN 10/07/23 10/07/23 Sulfate Hfa] Escitalopram [Lexapro] 20 mg PO DAILY 10/07/23 10/07/23 Metoprolol Succinate (ER) [Toprol 25 mg PO DAILY 10/07/23 10/07/23 XL] Topiramate [Topamax] 50 mg PO DAILY 10/07/23 10/07/23 Previous Rx's Medication Instructions Recorded Amoxic-Pot Clav 875-125Mg 1 tab PO Q12HR 7 Days #14 tab 10/08/23 [Augmentin 875-125] HYDROcodone/APAP 5-325MG [[place] 1 tab PO Q6HR PRN 3 Days #12 tab 10/08/23 5-325] Famotidine [Pepcid] 10 mg PO BID PRN #30 tab 03/02/24 Albuterol Nebulized [Ventolin 2.5 mg INHALATION Q4H PRN #75 ml 09/27/24 Nebulized] predniSONE 50 mg PO DAILY #5 tab 09/27/24 Allergies Allergy/AdvReac Type Severity Reaction Status Date / Time No Known Allergies Allergy Verified 02/09/25 01:51 Review of Systems ROS Statement: Those systems with pertinent positive or pertinent negative responses have been documented in the HPI. ROS Other: All systems not noted in ROS Statement are negative. Past Medical History Past Medical History: Asthma, Hypertension Additional Past Medical History / Comment(s): pancreatitis. pyloric stenosis, migraines, SVT History of Any Multi-Drug Resistant Organisms: MRSA Date of last positivie culture/infection: 2011 MDRO Source:: lt upper thigh area Past Surgical History: Appendectomy, Cholecystectomy, Orthopedic Surgery Additional Past Surgical History / Comment(s): lt finger tendon repair Past Anesthesia/Blood Transfusion Reactions: No Reported Reaction Past Psychological History: Anxiety, Depression Smoking Status: Vaper Past Alcohol Use History: None Reported Past Drug Use History: Marijuana, Methamphetamine - Past Family History Mother Family Medical History: Hypertension General Exam Limitations: no limitations General appearance: alert, in no apparent distress Head exam: Present: atraumatic, normocephalic, normal inspection Eye exam: Present: normal appearance, PERRL, EOMI. Absent: scleral icterus, conjunctival injection, periorbital swelling Respiratory exam: Present: normal lung sounds bilaterally. Absent: respiratory distress, wheezes, rales, rhonchi, stridor Cardiovascular Exam: Present: regular rate, normal rhythm GI/Abdominal exam: Present: soft, normal bowel sounds. Absent: distended, tenderness, guarding, rebound, rigid Neurological exam: Present: alert, oriented X3, CN II-XII intact Psychiatric exam: Present: normal affect, normal mood Skin exam: Present: warm, dry, intact, normal color. Absent: rash Course Vital Signs 02/09/25 01:48 Temperature 97.8 F Pulse Rate 97 Respiratory 18 Rate Blood Pressure 141/97 O2 Sat by Pulse 98 Oximetry Medical Decision Making - Medical Decision Making This is a 34 year old female who presents to the emergency department for a syncopal episode. Was pt. sent in by a medical professional or institution? @ -No Did you speak to anyone other than the patient for history? @ -No Did you review nursing and triage notes? @ -Yes, and I agree, it is accurate with regards to the patient's symptoms. Were old charts reviewed? @ -No Differential Diagnosis? @ -Differential Syncope: Valvular disease, hypertrophic cardiomyopathy, pulmonary embolism, tamponade, tachycardia, bradycardia, [place], hypovolemia, hemorrhage, dissection, anemia, intracranial hemorrhage, seizure, hypoglycemia, carbon monoxide poisoning, this is not meant to be an all-inclusive list. EKG interpreted by me (3pts min.)? @ -EKG interpreted by me demonstrating the following: Sinus rhythm. Ventricular rate 79 bpm, IA interval 144 ms, QRS duration 101 ms, QTc 419 ms. X-rays interpreted by me (1pt min.)? @ -Chest x-ray obtained, my interpretation identifies no localized consolidations or infiltrates. CT interpreted by me (1pt min.)? @ -Computed tomography scan of the brain and c-spine obtained. My interpretation identifies no evidence of an acute intracranial hemorrhage, skull fracture, or cervical spine fracture. U/S interpreted by me (1pt. min.)? @ -Not obtained What testing was considered but not performed? (CT, X-rays, U/S, labs)? Why? @ -None What meds were considered but not given? Why? @ -None Did you discuss the management of the patient with other professionals? @ -No Did you reconcile home meds? @ -No Was smoking cessation discussed for >3mins.? @ -No Was critical care preformed (if so, how long)? @ -No Were there social determinants of health that impacted care today? How? (Homelessness, low income, unemployed, alcoholism, drug addiction, transportation, low edu. Level, literacy, decrease access to med. care, usp, rehab)? @ -No Was there de-escalation of care discussed even if they declined? (Discuss DNR or withdrawal of care, Hospice)? @ -No What co-morbidities impacted this encounter? (DM, HTN, Smoking, COPD, CAD, Cancer, CVA, Hep., AIDS, mental health diagnosis, sleep apnea, morbid obesity)? @ -Asthma, HTN Was patient admitted / discharged? @ -Discharged. Lab work demonstrates mild leukocytosis with a white blood cell count of 10.9 and mild hypokalemia with a potassium of 3.4. 40 mEq of K-Dur a dministered. Urinalysis grossly contaminated but not suggestive of infection. UDS positive for opiates and marijuana. Chest x-ray obtained revealing no acute process. CT scan of the brain and C-spine obtained also revealing no acute findings. She was treated with IV fluids and Toradol with improvement in symptoms. Advised that she needs to follow-up with her primary care provider for reevaluation and discussion of any additional testing if necessary with regards to the syncopal episode, such as something like a Holter monitor. Patient discharged home in stable condition. Case discussed with ED attending Dr. Ritter. Return precautions reviewed in depth, the patient is instructed to return to the emergency department with any new, worsening, or concerning symptoms. Patient verbalized understanding. Undiagnosed new problem with uncertain prognosis? @ -None Drug Therapy requiring intensive monitoring for toxicity (Heparin, Nitro, Insulin, Cardizem)? @ -None Were any procedures done? @ -None Diagnosis/symptom? @ -Syncope, head injury Acute, or Chronic, or Acute on Chronic? @ -Acute Uncomplicated (without systemic symptoms) or Complicated (systemic symptoms)? @ -Uncomplicated Side effects of treatment? @ -None Exacerbation, Progression, or Severe Exacerbation] @ -Not applicable Poses a threat to life or bodily function? @ -No - Lab Data Result diagrams: 02/09/25 02:28 02/09/25 02:28 Lab Results 02/09/25 02/09/25 02/09/25 Range/Units 02:27 02:28 02:28 WBC 10.90 H (4.50-10.00) 10*3/uL RBC 4.46 (4.10-5.20) 10*6/uL Hgb 13.9 (12.0-15.0) g/dL Hct 40.0 (37.2-46.3) % MCV 89.7 (80.0-97.0) fL MCH 31.2 (27.0-32.0) pg MCHC 34.8 (32.0-37.0) g/dL Plt Count 266 (140-440) 10*3/uL MPV 10.6 (9.5-12.2) fL Immature Gran % (Auto) 0.2 % Neutrophils % 68.2 % Lymphocytes % 21.1 % Monocytes % 8.3 % Eosinophils % 1.9 % Basophils % 0.3 % Immature Gran # 0.02 (0.00-0.04) 10*3/uL Neutrophils # 7.44 (1.80-7.70) 10*3/uL Lymphocytes # 2.30 (0.90-5.00) 10*3/uL Monocytes # 0.90 (0.20-1.00) 10*3/uL Eosinophils # 0.21 (0.04-0.35) 10*3/uL Basophils # 0.03 (0.00-0.10) 10*3/uL PT 10.4 (10.0-12.5) sec INR 0.9 (<1.2) APTT 22.2 (22.0-30.0) sec Sodium (137-145) mmol/L Potassium (3.5-5.1) mmol/L Chloride (98-107) mmol/L Carbon Dioxide (22-30) mmol/L Anion Gap mmol/L BUN (7-17) mg/dL Creatinine (0.52-1.04) mg/dL Est GFR (CKD-EPI)AfAm (>60 ml/min/1.73 sqM) Est GFR (CKD-EPI)NonAf (>60 ml/min/1.73 sqM) Glucose (74-99) mg/dL Calcium (8.4-10.2) mg/dL Magnesium (1.6-2.3) mg/dL Total Bilirubin (0.2-1.3) mg/dL AST (14-36) U/L ALT (4-34) U/L Alkaline Phosphatase (38-126) U/L Troponin I (0.000-0.034) ng/mL Total Protein (6.3-8.2) g/dL Albumin (3.5-5.0) g/dL HCG, Qual Urine Color Urine Appearance (Clear) Urine pH (5.0-8.0) Ur Specific [place] (1.001-1.035) Urine Protein (Negative) Urine Glucose (UA) (Negative) Urine Ketones (Negative) Urine Blood (Negative) Urine Nitrite (Negative) Urine Bilirubin (Negative) Urine Urobilinogen (<2.0) mg/dL Ur Leukocyte Esterase (Negative) Urine RBC (0-5) /hpf Urine WBC (0-5) /hpf Ur Squamous Epith Cells (0-4) /hpf Amorphous Sediment (None) /hpf Urine Bacteria (None) /hpf Hyaline Casts (0-2) /lpf Urine Mucus (None) /hpf Urine Opiates Screen Detected H (NotDetected) Ur Oxycodone Screen Not Detected (NotDetected) Urine Methadone Screen Not Detected (NotDetected) Ur Barbiturates Screen Not Detected (NotDetected) U Tricyclic Antidepress Not Detected (NotDetected) Ur Phencyclidine Scrn Not Detected (NotDetected) Ur Amphetamines Screen Not Detected (NotDetected) U Methamphetamines Scrn Not Detected (NotDetected) U Benzodiazepines Scrn Not Detected (NotDetected) Urine Cocaine Screen Not Detected (NotDetected) U Marijuana (THC) Screen Detected H (NotDetected) Serum Alcohol mg/dL 02/09/25 02/09/25 02/09/25 Range/Units 02:28 02:28 02:28 WBC (4.50-10.00) 10*3/uL RBC (4.10-5.20) 10*6/uL Hgb (12.0-15.0) g/dL Hct (37.2-46.3) % MCV (80.0-97.0) fL MCH (27.0-32.0) pg MCHC (32.0-37.0) g/dL Plt Count (140-440) 10*3/uL MPV (9.5-12.2) fL Immature Gran % (Auto) % Neutrophils % % Lymphocytes % % Monocytes % % Eosinophils % % Basophils % % Immature Gran # (0.00-0.04) 10*3/uL Neutrophils # (1.80-7.70) 10*3/uL Lymphocytes # (0.90-5.00) 10*3/uL Monocytes # (0.20-1.00) 10*3/uL Eosinophils # (0.04-0.35) 10*3/uL Basophils # (0.00-0.10) 10*3/uL PT (10.0-12.5) sec INR (<1.2) APTT (22.0-30.0) sec Sodium 138 (137-145) mmol/L Potassium 3.4 L (3.5-5.1) mmol/L Chloride 104 (98-107) mmol/L Carbon Dioxide 24 (22-30) mmol/L Anion Gap 10 mmol/L BUN 11 (7-17) mg/dL Creatinine 0.82 (0.52-1.04) mg/dL Est GFR (CKD-EPI)AfAm >90 (>60 ml/min/1.73 sqM) Est GFR (CKD-EPI)NonAf >90 (>60 ml/min/1.73 sqM) Glucose 86 (74-99) mg/dL Calcium 9.8 (8.4-10.2) mg/dL Magnesium 1.9 (1.6-2.3) mg/dL Total Bilirubin 0.4 (0.2-1.3) mg/dL AST 25 (14-36) U/L ALT 23 (4-34) U/L Alkaline Phosphatase 38 (38-126) U/L Troponin I <0.012 (0.000-0.034) ng/mL Total Protein 6.4 (6.3-8.2) g/dL Albumin 4.0 (3.5-5.0) g/dL HCG, Qual Not Detected Urine Color Light Yellow Urine Appearance Cloudy H (Clear) Urine pH 7.5 (5.0-8.0) Ur Specific [place] 1.016 (1.001-1.035) Urine Protein Trace H (Negative) Urine Glucose (UA) Negative (Negative) Urine Ketones Negative (Negative) Urine Blood Negative (Negative) Urine Nitrite Negative (Negative) Urine Bilirubin Negative (Negative) Urine Urobilinogen <2.0 (<2.0) mg/dL Ur Leukocyte Esterase Small H (Negative) Urine RBC 1 (0-5) /hpf Urine WBC 1 (0-5) /hpf Ur Squamous Epith Cells 10 H (0-4) /hpf Amorphous Sediment Occasional H (None) /hpf Urine Bacteria Rare H (None) /hpf Hyaline Casts 3 H (0-2) /lpf Urine Mucus Few H (None) /hpf Urine Opiates Screen (NotDetected) Ur Oxycodone Screen (NotDetected) Urine Methadone Screen (NotDetected) Ur Barbiturates Screen (NotDetected) U Tricyclic Antidepress (NotDetected) Ur Phencyclidine Scrn (NotDetected) Ur Amphetamines Screen (NotDetected) U Methamphetamines Scrn (NotDetected) U Benzodiazepines Scrn (NotDetected) Urine Cocaine Screen (NotDetected) U Marijuana (THC) Screen (NotDetected) Serum Alcohol <10 mg/dL - Radiology Data Radiology results: report reviewed, image reviewed Disposition Clinical Impression: Syncope, Head injury Disposition: HOME SELF-CARE Instructions (If sedation given, give patient instructions): Syncope (ED) Additional Instructions: Return to the emergency department with any new, worsening, or concerning symptoms. Alternate with ibuprofen and Tylenol as needed for any additional headaches. Follow up with your primary care provider in 1-2 days. Is patient prescribed a controlled substance at d/c from ED?: No Referrals: Rom Easton III, MD [Primary Care Provider] - 1-2 days Time of Disposition: 03:56
[2025-02-09] MEDS: SODIUM CHLORIDE 0.9% 1,000 ML IV STA (02:33)
[2025-02-09 02:42] LABS: Basophils # (A) 0.03 10*3/uL (0.00-0.10); Basophils % (A) 0.3 %; Eosinophils # (A) 0.21 10*3/uL (0.04-0.35); Eosinophils % (A) 1.9 %; HGB 13.9 g/dL (12.0-15.0); Lymphocytes % (A) 21.1 %; MCH 31.2 pg (27.0-32.0); MCHC 34.8 g/dL (32.0-37.0); MCV 89.7 fL (80.0-97.0); Mean Platelet Volume 10.6 fL (9.5-12.2); Monocytes % (A) 8.3 %; Neutrophils # (A) 7.44 10*3/uL (1.80-7.70); Neutrophils % (A) 68.2 %; Platelet Count 266 10*3/uL (140-440); RBC 4.46 10*6/uL (4.10-5.20)
[2025-02-09 02:55] LABS: ALT 23 U/L (4-34); AST 25 U/L (14-36); African American GFR (CKD) >90 (>60 ml/min/1.73 sqM); Alcohol <10 mg/dL; Alkaline Phosphatase 38 U/L (38-126); Anion Gap 10 mmol/L; Blood Urea Nitrogen 11 mg/dL (7-17); Calcium 9.8 mg/dL (8.4-10.2); Carbon Dioxide 24 mmol/L (22-30); Chloride 104 mmol/L (98-107); Glucose 86 mg/dL (74-99); Magnesium 1.9 mg/dL (1.6-2.3); Non-African American GFR(CKD) >90 (>60 ml/min/1.73 sqM); Potassium 3.4 mmol/L (3.5-5.1); Sodium 138 mmol/L (137-145); Total Bilirubin 0.4 mg/dL (0.2-1.3); Total Protein 6.4 g/dL (6.3-8.2)
--- NOTE | 2025-02-09 02:56 | CT ---
EXAM: CT Head Without Intravenous Contrast CLINICAL HISTORY: ITS.REASON CT Reason: syncope, injury TECHNIQUE: Axial computed tomography images of the head/brain without intravenous contrast. CTDI is 45.2 mGy and DLP is 1007 mGy-cm. This CT exam was performed using one or more of the following dose reduction techniques: automated exposure control, adjustment of the mA and/or kV according to patient size, and/or use of iterative reconstruction technique. COMPARISON: No relevant prior studies available. FINDINGS: Brain: Unremarkable. No hemorrhage. No significant white matter disease. No edema. Ventricles: Unremarkable. No ventriculomegaly. Bones/joints: Unremarkable. No acute fracture. Soft tissues: Unremarkable. Sinuses: Unremarkable as visualized. No acute sinusitis. Mastoid air cells: Unremarkable as visualized. No mastoid effusion. IMPRESSION: Normal head/brain CT. EXAM: CT Cervical Spine Without Intravenous Contrast CLINICAL HISTORY: ITS.REASON CT Reason: syncope, injury TECHNIQUE: Axial computed tomography images of the cervical spine without intravenous contrast. CTDI is 17.2 mGy and DLP is 437.4 mGy-cm. This CT exam was performed using one or more of the following dose reduction techniques: automated exposure control, adjustment of the mA and/or kV according to patient size, and/or use of iterative reconstruction technique. COMPARISON: No relevant prior studies available. FINDINGS: Vertebrae: Unremarkable. No acute fracture. Discs/spinal canal/neural foramina: No acute findings. No spinal canal stenosis. Soft tissues: Unremarkable. IMPRESSION: Normal cervical spine CT.
[2025-02-09 03:04] LABS: Amorphous Sediment,Urine Occasional /hpf; Appearance,Urine Cloudy (Clear); Bacteria,Urine Rare /hpf; Bilirubin,Urine Negative (Negative); Blood,Urine Negative (Negative); Color,Urine Light Yellow; Glucose,Urine (UA) Negative (Negative); Hyaline Casts,Urine 3 /lpf (0-2); Ketones,Urine Negative (Negative); Leukocyte Esterase,Urine Small (Negative); Mucus,Urine Few /hpf; Nitrite,Urine Negative (Negative); PH, Urine 7.5 (5.0-8.0); Protein,Urine Trace (Negative); RBC,Urine 1 /hpf (0-5); Specific Gravity,Urine 1.016 (1.001-1.035); Squamous Epithelial Cell,Urine 10 /hpf (0-4); Urobilinogen,Urine <2.0 mg/dL (<2.0); WBC,Urine 1 /hpf (0-5)
--- NOTE | 2025-02-09 03:05 | XR ---
EXAM: XR Chest, 2 Views CLINICAL HISTORY: ITS.REASON XR Reason: syncope TECHNIQUE: Frontal and lateral views of the chest. COMPARISON: No relevant prior studies available. FINDINGS: Lungs: Atelectasis in the left upper lobe. Pleural space: Unremarkable. No pneumothorax. Heart: Unremarkable. No cardiomegaly. Mediastinum: Unremarkable. Bones/joints: Unremarkable. IMPRESSION: No acute findings in the chest.
[2025-02-09 03:11] LABS: Amphetamine Screen,Urine Not Detected (NotDetected); Barbiturate Screen,Urine Not Detected (NotDetected); Benzodiazepines Screen,Urine Not Detected (NotDetected); Cocaine Screen,Urine Not Detected (NotDetected); Methadone Screen, Urine Not Detected (NotDetected); Opiate Screen,Urine Detected (NotDetected); Oxycodone Screen, Urine Not Detected (NotDetected); Phencyclidine Screen,Urine Not Detected (NotDetected); Tricyclic Antidepressant,Urine Not Detected (NotDetected); Urn Cannabinoid Scrn Detected (NotDetected)
[2025-02-09 03:11] LABS: HCG,Qualitative Serum Not Detected
[2025-02-09] MEDS: POTASSIUM CHLORIDE ER 20 MEQ TAB.ER PO STA (03:25)
[2025-02-09] MEDS: KETOROLAC 15 MG/ML 1 ML VIAL IVP STA (03:26)
[2025-02-09 03:38] LABS: INR 0.9 (<1.2); Partial Thromboplastin Time 22.2 sec (22.0-30.0); Prothrombin Time 10.4 sec (10.0-12.5)
[2025-02-09 04:26] VITALS: BP 141/102; PULSE 79; RESP 17; TEMP 97.9
== END 2025-02-09 04:27 | disposition home or self-care (01) ==
LOC: EC 01:43
DX: S09.90XA Unspecified injury of head, initial encounter (principal); R55 Syncope and collapse; D72.829 Elevated white blood cell count, unspecified; E87.6 Hypokalemia; J45.909 Unspecified asthma, uncomplicated; I10 Essential (primary) hypertension; F17.290 Nicotine dependence, other tobacco product, uncomplicated; W18.39XA Other fall on same level, initial encounter
CPT/HCPCS: 36415; 93005; 80053; 83735; 84484; 85025; 85610; 85730; 81001; 84703; 80306; 71046; 72125; 70450; 99284; 96374; 96361; G0480; J1885; 80320